=== PATIENT | female | born 1955 ===

== ENCOUNTER 2021-03-31 16:14 | Outpatient (REF) | payer MEDICAID, SELFPAY ==
--- NOTE | ~2021-03-31 | MM_ITS ---
EXAMINATION: MM SCREENING DIGITAL BREAST TOMOSYNTHESIS, BILATERAL CLINICAL INFORMATION: Screening. Asymptomatic. The lifetime risk of breast cancer based on the Tyrer-Cuzick Model is 4%. COMPARISON: Mammography: 12/28/2016 (new baseline) TECHNIQUE: Digital breast tomosynthesis is performed in both the craniocaudal and mediolateral oblique views along with computer-aided detection (CAD). Synthesized 2D images are generated from the tomosynthesis. FINDINGS: There are scattered areas of fibroglandular density (ACR BI-RADS breast composition Category b). There are no significant masses, abnormal calcifications, or other abnormalities. Parenchymal pattern is similar to the prior exam. No architectural abnormality. Skin contours are smooth. MM/MM tomosynthesis screening BI IMPRESSION: No mammographic evidence of malignancy. ASSESSMENT: BI-RADS 1: Negative RECOMMENDATION: Routine annual mammography screening. This patient's information was entered into a reminder system with a target due date for their next mammogram.
== END 2021-03-31 16:15 | disposition home or self-care (01) ==
LOC: HO.MAMMO 16:14
PROVIDERS: Visit Provider Registered Nurse Community Health
DX: Z12.31 Encounter for screening mammogram for malignant neoplasm of breast (principal)
CPT/HCPCS: 77063; 77067

== ENCOUNTER 2021-05-04 14:51 | Outpatient (REF) | payer MEDICAID, SELFPAY ==
[2021-05-04 16:37] LABS: Hematocrit 40.2 % (37.0-47.0); Hemoglobin 12.6 g/dl (12.0-16.0); Mean Corpuscular HGB Conc 31.3 g/dl (31.0-35.0); Mean Corpuscular Hemoglobin 26.5 pg (27.0-33.0); Mean Corpuscular Volume 84.6 fL (80.0-98.0); Platelet Count 269 X10*3/uL (160-400); Red Blood Count 4.75 X10*6/uL (4.20-5.50); Red Cell Distribution Width 12.4 % (11.0-16.0); White Blood Count 10.4 X10*3/uL (4.8-10.8)
[2021-05-04 16:52] LABS: Alanine Aminotransferase 23 U/L (0-31); Albumin Level 4.2 g/dL (3.5-5.0); Alkaline Phosphatase 124 U/L (39-117); Anion Gap 12 (12-20); Aspartate Amino Transferase 23 U/L (5-31); Bilirubin Total 0.2 mg/dL (0.0-1.0); Blood Urea Nitrogen 15 mg/dL (9-16); Calcium 9.5 mg/dL (8.4-10.2); Carbon Dioxide 25 mmol/L (22-29); Chloride 107 mmol/L (96-108); Estimated Glomerular Filt Rate > 60; Glucose Random 91 mg/dL (60-115); Potassium 4.2 mmol/L (3.3-5.1); Sodium 140 mmol/L (135-145); Total Protein 7.8 g/dL (6.5-8.0)
[2021-05-04 17:13] LABS: TSH reflex Free T4 0.45 uIU/mL (0.32-4.0)
== END 2021-05-04 14:52 | disposition home or self-care (01) ==
LOC: HO.LAB 14:51
PROVIDERS: PCP Emergency Medicine; Referring Provider Emergency Medicine; Visit Provider Nurse Practitioner Family
DX: K59.04 Chronic idiopathic constipation (principal); R14.0 Abdominal distension (gaseous)
CPT/HCPCS: 36415; 80053; 84443; 85027; 99202

== ENCOUNTER → 2021-06-22 14:56 | Outpatient (BNVA) | payer MEDICAID, SELFPAY | PROVIDERS: PCP Emergency Medicine; Visit Provider Nurse Practitioner Family | DX: K59.04 Chronic idiopathic constipation (principal); R14.0 Abdominal distension (gaseous) | CPT/HCPCS: 99212 ==

== ENCOUNTER 2021-12-15 13:53 | Outpatient (REF) | payer MEDICAID, SELFPAY ==
--- NOTE | ~2021-12-15 | MM_ITS ---
EXAMINATION: BONE DENSITOMETRY CLINICAL INDICATION: Asymptomatic menopausal state. COMPARISON: None (current study represents initial baseline exam). TECHNIQUE: Using a [employer] DXA System (software version: 13.1) manufactured by [employer], dual-energy x-ray absorptiometry was performed of the lumbar spine and left hip. The images are of good technical quality. Summary results are attached. FINDINGS: AP SPINE L1-L4: BMD 0.854 g/cm2, Z-score -1.2, T-score -2.7, osteoporosis. LEFT FEMUR, NECK: BMD 0.777 g/cm2, Z-score -0.4, T-score -1.9, osteopenia. LEFT FEMUR, TOTAL: BMD 0.886 g/cm2, Z-score 0.2, T-score -1.0, normal. IDENTIFIED RISK FACTORS: Menopause, osteoporosis. HISTORY OF FRACTURE: None listed. MEDICATIONS: None listed. MM/XR DEXA axial skeleton IMPRESSION: 1. DIAGNOSIS: Osteoporosis based on the lowest T-score value of -2.7 in the lumbar spine applying World Health Organization criteria. 2. 10-YEAR FRACTURE RISK PREDICTION, FRAX: According to the guidelines, FRAX calculation should only be performed on patients in the osteopenia bone density category. Therefore, FRAX was not performed on this patient. 3. Treatment Recommendations: NOF guidelines recommend consideration for treatment in postmenopausal women and men age 50 and older presenting with the following: -A hip or vertebral (clinical or morphometric) fracture. -T-score less than or equal to -2.5 at the femoral neck or spine after appropriate evaluation to exclude secondary causes. -Low bone mass at the hip or spine and a 10-year fracture probability by FRAX of greater than or equal to 3% for hip fracture or greater than or equal to 20% for major osteoporotic fracture based on the [place] adapted WHO algorithm. 4. Other Recommendations: All treatment decisions require clinical judgment and consideration of individual patient factors, including patient preferences, comorbidities, previous drug use, risk factors not captured in the FRAX model (e.g. frailty, falls, vitamin D deficiency, increased bone turnover, interval significant decline in bone density) and possible under or overestimation of fracture risk by FRAX. Additional medical evaluation for secondary cause of low bone mineral density may be appropriate. FUTURE SCAN RECOMMENDATION: People with diagnosed cases of osteoporosis or at high risk for fracture should have regular bone mineral density tests. For patients eligible for Medicare, routine testing is allowed once every 2 years. The testing frequency can be increased to one year for patients who have rapidly progressing disease, those who are receiving or discontinuing medical therapy to restore bone mass, or have additional risk factors.
== END 2021-12-15 13:54 | disposition home or self-care (01) ==
LOC: HO.MAMMO 13:53
PROVIDERS: PCP Emergency Medicine; Visit Provider Emergency Medicine
DX: Z13.820 Encounter for screening for osteoporosis (principal); Z78.0 Asymptomatic menopausal state
CPT/HCPCS: 77080

== ENCOUNTER 2022-09-30 13:56 | Outpatient (REF) | payer MEDICAID, SELFPAY ==
[2022-09-30 15:38] LABS: Estimated Average Glucose 94 mg/dL; Hemoglobin A1c % 4.9 %
[2022-09-30 16:08] LABS: Alanine Aminotransferase 27 U/L (0-31); Albumin Level 4.2 g/dL (3.5-5.0); Alkaline Phosphatase 126 U/L (39-117); Aspartate Amino Transferase 21 U/L (5-31); Bilirubin Direct 0.1 mg/dL (0.0-0.5); Bilirubin Total 0.5 mg/dL (0.0-1.0); C Reactive Protein 0.43 mg/dL (< or = 0.50); Lipase 31 U/L (8-78); Magnesium 1.9 mg/dL (1.6-2.6); Total Protein 7.1 g/dL (6.5-8.0)
[2022-09-30 16:19] LABS: Amylase 81 U/L (28-100)
[2022-09-30 16:40] LABS: Folate 15.4 ng/mL (> or = 4.0); TSH reflex Free T4 0.35 uIU/mL (0.32-4.0); Vitamin B12 570 pg/mL (200-900)
[2022-10-03 04:18] LABS: HBS Num1 224.54 mIU/mL (0-7.99); HBc Num1 0.77 S/CO (0.00-0.79); HBsAGNum1 0.33 S/CO (0.00-0.99); Hepatitis A Antibody IgM 0.38 Index (0-0.79); Hepatitis B Core Antibody Nonreactive (Nonreactive); Hepatitis B Surface Antigen Negative (Negative); ~HepC Num1 0.15 S/CO (0.00-0.79); ~Hepatitis A Antibody IgM Nonreactive (Nonreactive); ~Hepatitis B Surface Antibody REACTIVE (Nonreactive); ~Hepatitis C Antibody Nonreactive (Nonreactive)
[2022-10-06 16:48] LABS: Vitamin D 25-OH, D2 <4 ng/mL; Vitamin D 25-OH, D3 28 ng/mL; Vitamin D 25-OH, Total 28 ng/mL (30-100)
== END 2022-09-30 13:57 | disposition home or self-care (01) ==
LOC: HO.LAB 13:56
PROVIDERS: Visit Provider Nurse Practitioner Family
DX: K58.0 Irritable bowel syndrome with diarrhea (principal); K58.1 Irritable bowel syndrome with constipation; K59.01 Slow transit constipation; K59.04 Chronic idiopathic constipation; E55.9 Vitamin D deficiency, unspecified; R79.89 Other specified abnormal findings of blood chemistry; E11.9 Type 2 diabetes mellitus without complications; K13.79 Other lesions of oral mucosa; R13.14 Dysphagia, pharyngoesophageal phase; K21.9 Gastro-esophageal reflux disease without esophagitis; R10.9 Unspecified abdominal pain; Z79.899 Other long term (current) drug therapy
CPT/HCPCS: 36415; 80076; 82150; 82306; 82607; 82746; 83036; 83690; 83735; 84443; 86140; 86704; 86706; 86709; 86803; 87340; 99212

== ENCOUNTER 2022-10-04 12:58 | Day surgery (SDC) | payer MEDICAID, SELFPAY ==
--- NOTE | 2022-10-03 11:45 | HO.ANESPROP2 ---
Documented by User: Francine Llamas NP 10/03/22 11:45 HPI - Anesthesia Eval Consult details Narrative: 67yo F for Upper Endoscopy and Colonoscopy [facility] Past Medical History Medical History Acquired hypothyroidism Goiter Hypertension Family History Family History Mother Diabetes Surgical History Surgical History (Updated 10/04/22 @ 13:24 by Odalis Camarillo RN) Hx of right knee surgery Social History Social History Alcohol intake: current Alcohol intake frequency: holidays/special occasions only Patient Tobacco Use Status: Never used Tobacco Meds Allergies Allergy/AdvReac Type Severity Reaction Status Date / Time No Known Allergies Allergy Verified 10/04/22 13:24 [No Known Allergies*] Home Medications Medication Instructions Recorded Confirmed Last Taken Type amlodipine 5 mg tablet 5 mg PO DAILY 05/04/21 05/04/21 Unknown History levothyroxine 50 mcg capsule 50 mcg PO DAILY 05/04/21 05/04/21 10/04/22 06:00 History cetirizine 10 mg tablet 10 mg PO DAILY 09/30/22 Unknown History hydrocortisone 2.5 % topical cream appl topical BID 09/30/22 Unknown History Exam Exam Date and Time: October 03, 2022 114 Assessment and Plan Assessment Anesthesia Assessment: Chart Reviewed Documented by User: Marcell Rivera MD 10/04/22 17:46 HPI - Anesthesia Eval Consult details Narrative: 67yo F for Upper Endoscopy and Colonoscopy left upper extremity skin leisions , as per patient more leisions on the body , patient stated that she has sought medical opinion for these leisons and workup is being done but no definitive diagnosis yet . Discussed with Dr Mclaughlin . [facility] Past Medical History Medical History Acquired hypothyroidism Goiter Hypertension Functional capacity: independent ambulation Family History Family History Mother Diabetes Family history of problems with anesthesia: No Surgical History Surgical History (Updated 10/04/22 @ 13:24 by Odalis Camarillo RN) Hx of right knee surgery History of Problems with Anesthesia: No Social History Social History Alcohol intake: current Alcohol intake frequency: holidays/special occasions only Patient Tobacco Use Status: Never used Tobacco Meds Allergies Allergy/AdvReac Type Severity Reaction Status Date / Time No Known Allergies Allergy Verified 10/04/22 13:24 [No Known Allergies*] Home Medications Medication Instructions Recorded Confirmed Last Taken Type amlodipine 5 mg tablet 5 mg PO DAILY 05/04/21 05/04/21 Unknown History levothyroxine 50 mcg capsule 50 mcg PO DAILY 05/04/21 05/04/21 10/04/22 06:00 History cetirizine 10 mg tablet 10 mg PO DAILY 09/30/22 Unknown History hydrocortisone 2.5 % topical cream appl topical BID 09/30/22 Unknown History Exam Airway Mallampati Class: III TM Dist: >3cm Neck ROM: Full Loose/Missing/Broken Teeth: Yes (implants, upper slightly chipped as per patient ) Assessment and Plan Assessment Anesthesia Assessment: Anesthesia Plan Discussed Final Anesthetic Review Family History of Problems with Anesthesia: No History of Problems with Anesthesia: No NPO: Yes ASA Class: II Final Preanesthetic Review: Meds/Allgs Chart Reviewed, Consent Obtained/Reviewed and Anes Risks/Benef Reviewed Patient Risk: Intermediate Procedure Risk: Intermediate Anesthetic Plan Anesthetic Plan: MAC: and Agree w/ Assess. and Plan Disposition: Standard PACU
[2022-10-04 13:27] VITALS: BMI 24.5
[2022-10-04 13:43] VITALS: BP 137/74; PULSE 75; RESP 15; TEMP 36.4; O2SAT 99
[2022-10-04] MEDS: Lactated Ringers 1,000 ML 100 ML IVCONT (13:47)
--- NOTE | 2022-10-04 16:28 | MHC.SHP ---
Pre-Procedural Eval Section A Date of Service: 10/04/22 Section B Chief Complaint: epigastric pain, screening colo Relevant Family History (Specify if Yes): No Relevant Social History: None Present Medications: see Short Stay Collaborative assessment Medical History: Significant History (Acquired hypothyroidism Goiter Hypertension) History of Previous Operations: Relevant previous surgery/procedure and date(s) (knee surgery) Allergies: Allergies Allergy/AdvReac Type Severity Reaction Status Date / Time No Known Allergies Allergy Verified 10/04/22 13:24 [No Known Allergies*] Review of Systems Sugical H&P ROS: Negative: Constitution, Cardiovascular, Respiratory, Neurological, Psychiatric, Hem-Onc, Allergic/Immunologic, Gastrointestinal, Genitourinary, Musculoskeletal, Integumentary, Endocrine and Eyes/Ears/Nose/Throat Exam Surgical H&P Exam: Normal: HEENT, Normal: Heart, Normal: Lungs, Normal: Extremities, Normal: Abdomen, Normal: Skin and Normal: Neurological Plan Diagnosis/Plan: Unchanged I have reviewed the history and physical and performed a pertinent physical examination on my patient. No changes have occurred unless specified. EGD also being done due to epigastric pain Time Spent With Patient Time: Total time managing care of this patient today ____ minutes.
--- NOTE | 2022-10-04 16:40 | P.OP_ITS ---
Operative Note Operative Note Date of Service: 10/04/22 Narrative: Operative Information Procedure Description: EGD, Colonoscopy Indication: epigastric pain and screening Anesthesia: MAC FLEXIBLE TRANSORAL UPPER GASTROINTESTINAL ENDOSCOPY AND COLONOSCOPY PROCEDURE NOTE UPPER ENDOSCOPY Consent: Indications for the procedure and potential complications of bleeding, perforation, reaction to medications and missed diagnosis were discussed with the patient and informed consent was obtained. Instrument: Olympus GIF H 190 J mid size upper endoscope Monitoring: Vital signs and clinical assessment, continuous EKG monitoring, Pulse oximetry, Carbon Dioxide monitoring and blood pressure monitoring were done throughout the procedure. Procedure: The patient was placed in the left lateral decubitis position and pre-procedure medications were administered and a bite block was placed. The endoscope was inserted into the mouth and advanced under direct vision to the third part of duodenum. A careful inspection was made as the upper endoscope was withdrawn including a retroflexed examination of the proximal stomach; Findings and interventions are described below. Findings: Larynx:normal Esophagus: GE junction at 40 cm, diaphragm hiatus at 40 cm, suppurative esophagitis with inflammed lining and sloughed off mucosa, random bx taken Stomach: Normal mucosa. Biopsies were obtained. Grade 2 flap valve on retroflexed examination of the cardia. Bx taken Duodenum: Normal bulb and descending duodenum, bx taken Intervention: Biopsies as noted above COLONOSCOPY Instrument: Olympus variable stiffness pediatric scope 190L Colonoscopy Monitoring: Vital signs and clinical assessment, continuous EKG monitoring, Pulse oximetry, Carbon Dioxide monitoring and blood pressure monitoring were done throughout the procedure. Colon withdrawal time was 8 minutes. Procedure: The patient was placed in the left lateral decubitis position and pre-procedure medications were administered. After a digital rectal examination of the ano-rectum, the video colonoscope was inserted into the rectum and advanced through the colon to the cecum/TI. The colonoscope was slowly withdrawn in a retrograde panoramic fashion and the colon mucosa was carefully examined including a retroflexed view of the rectum. Findings and interventions are described below. Procedure Difficulty: moderate, pressure applied to get to cecum Findings: Terminal Ileum-normal Cecum:normal Ascending Colon: several wide mouthed tics noted Transverse Colon -normal Descending Colon: moderate diverticulosis Sigmoid Colon: severe diverticulosis Rectum: Retroflexion with small internal hemorrhoids, grade I Anorectum - normal Colon preparation: [place] Bowel Preparation Scale Right colon; 2 Transverse colon: 3 Left colon; 3 (0 = Unprepared colon segment with mucosa not seen due to solid stool that cannot be cleared. 1 = Portion of mucosa of the colon segment seen, but other areas of the colon segment not well seen due to staining, residual stool and/or opaque liquid. 2 = Minor amount of residual staining, small fragments of stool and/or opaque liquid, but mucosa of colon segment seen well. 3 = Entire mucosa of colon segment seen well with no residual staining, small fragments of stool or opaque liquid) Impression and Post Procedure Diagnosis: Endoscopy Findings: esophagitis Colonoscopy Findings: internal hemorrhoids diverticulosis Plan: Await Pathology results Repeat Colonoscopy in 10 years or earlier if clinically indicated High fiber diet leaflet avoid straining at stool, epsom salts and sitz bath, anusol supps or cream check compliance with PPI, check if taking doxy or bisphosphonate Above findings were reviewed with the patient and relevant handouts were provided if indicated.
[2022-10-04 17:25] VITALS: BP 104/51; PULSE 84; RESP 15; TEMP 36.3; O2SAT 99
[2022-10-04 17:40] VITALS: BP 126/72; PULSE 77; RESP 18; TEMP 36.3; O2SAT 99
== END 2022-10-04 17:59 | disposition home or self-care (01) ==
PROVIDERS: Visit Provider Internal Medicine Gastroenterology
PROC: (CPT 45378; principal; 2022-10-04 14:30)
DX: Z12.11 Encounter for screening for malignant neoplasm of colon (principal); K57.30 Diverticulosis of large intestine without perforation or abscess without bleeding; K64.0 First degree hemorrhoids; R10.13 Epigastric pain; K22.10 Ulcer of esophagus without bleeding; K29.50 Unspecified chronic gastritis without bleeding; B96.81 Helicobacter pylori [H. pylori] as the cause of diseases classified elsewhere; K13.79 Other lesions of oral mucosa; K44.9 Diaphragmatic hernia without obstruction or gangrene; I10 Essential (primary) hypertension; E03.9 Hypothyroidism, unspecified; E04.9 Nontoxic goiter, unspecified; Z79.899 Other long term (current) drug therapy
CPT/HCPCS: 45378; 43239; 88305; 88312; 88341; 88342; J3010

== ENCOUNTER 2022-10-13 10:59 | Outpatient (REF) | payer MEDICAID, SELFPAY ==
[2022-10-20 21:09] LABS: Pancreatic Elastase-1 >500 mcg/g
== END 2022-10-13 11:00 | disposition home or self-care (01) ==
LOC: HO.LNP 10:59
PROVIDERS: Visit Provider Nurse Practitioner Family
DX: K21.9 Gastro-esophageal reflux disease without esophagitis (principal); K21.00 Gastro-esophageal reflux disease with esophagitis, without bleeding; K57.90 Diverticulosis of intestine, part unspecified, without perforation or abscess without bleeding; K59.01 Slow transit constipation; R13.10 Dysphagia, unspecified; A04.8 Other specified bacterial intestinal infections; R10.9 Unspecified abdominal pain; Z79.899 Other long term (current) drug therapy
CPT/HCPCS: 82656; 87338; 99212

== ENCOUNTER → 2022-11-23 11:50 | Outpatient (BNVA) | payer MEDICAID, SELFPAY | PROVIDERS: Visit Provider Nurse Practitioner Family | DX: R49.0 Dysphonia (principal); R13.19 Other dysphagia; K21.00 Gastro-esophageal reflux disease with esophagitis, without bleeding; K59.04 Chronic idiopathic constipation | CPT/HCPCS: 99212 ==

== ENCOUNTER 2022-12-20 10:51 | Outpatient (REF) | payer MEDICAID, SELFPAY ==
[2022-12-20 14:22] LABS: MANUAL DIFF FLAG NO
[2022-12-20 14:25] LABS: Basophils Absolute Auto 0.1 X10*3/uL (0.0-0.2); Basophils Percent Auto 0.5 % (0-2); Eosinophils Absolute Auto 0.2 X10*3/uL (0.0-0.4); Hematocrit 41.7 % (37.0-47.0); Hemoglobin 12.9 g/dl (12.0-16.0); Imm Gran Abs Auto 0.14 X10*3/uL (0.00-0.03); Imm Gran Pct Auto 0.9 % (0.0-0.4); Lymphocytes Absolute Auto 2.3 X10*3/uL (1.2-4.9); Lymphocytes Percent Auto 15.1 % (20-40); Mean Corpuscular HGB Conc 30.9 g/dl (31.0-35.0); Mean Corpuscular Hemoglobin 27.5 pg (27.0-33.0); Mean Corpuscular Volume 88.9 fL (80.0-98.0); Mean Platelet Volume 10.5 fL (9.4-12.3); Monocytes Absolute Auto 0.5 X10*3/uL (0.1-1.2); Monocytes Percent Auto 3.1 % (2-11); Neutrophils Absolute Auto 12.2 x10*3/uL (2.0-8.3); Neutrophils Percent Auto 79.4 % (45-73); Platelet Count 251 X10*3/uL (160-400); Red Blood Count 4.69 X10*6/uL (4.20-5.50); Red Cell Distribution Width 14.5 % (11.0-16.0); White Blood Count 15.4 X10*3/uL (4.8-10.8)
[2022-12-20 15:04] LABS: Anion Gap 14 (12-20); Blood Urea Nitrogen 11 mg/dL (9-16); Calcium 10.1 mg/dL (8.4-10.2); Carbon Dioxide 25 mmol/L (22-29); Chloride 106 mmol/L (96-108); Estimated Glomerular Filt Rate > 60; Glucose Fasting 68 mg/dL (60-99); Potassium 3.9 mmol/L (3.3-5.1); Sodium 141 mmol/L (135-145)
== END 2022-12-20 10:52 | disposition home or self-care (01) ==
LOC: HO.CHCLDS 10:51
PROVIDERS: Visit Provider Internal Medicine
DX: L10.0 Pemphigus vulgaris (principal)
CPT/HCPCS: 36415; 80048; 85025

== ENCOUNTER 2023-03-01 11:50 | Outpatient (AMB) | payer MEDICAID, SELFPAY ==
[2023-03-01 11:54] VITALS: BP 120/80; PULSE 81; O2SAT 98
--- NOTE | 2023-03-01 11:54 | MHC.OFFVIS ---
Intake Vital Signs 03/01/23 11:54 Height 5 ft 1 in BP 120/80 Blood Pressure Location Lt brachial Position Sitting Pulse 81 Pulse Source Pulse Oximeter Pulse Oximetry (%) 98 Intake Visit Reasons: 3 mnth follow up Intake Note: Patient in the office for a 3 month follow up Allergies No Known Allergies [No Known Allergies*] Allergy (Verified 03/01/23 11:56) HPI 3 mnth follow up HPI Details LAST VISIT Hoarseness of voice Patient reports hoarseness and would like to be referred to all fire and safety helper. Denies any postnasal drip. Had a history of dysphagia. Will send her for x-ray to rule out any abnormalities. Dysphagia Patient reports that her symptoms of difficulty when swallowing have improved. Continue taking omeprazole and sucralfate as ordered. GERD (gastroesophageal reflux disease) Continue current treatment as mentioned above. Discussed with patient avoiding dietary triggers in late night snacking. Staying upright for minimum 3 hours after meals discussed with patient. Constipation Continue Linzess. Patient was encouraged to increase fluid intake and activity better bowel motility. I will see patient in 3 months, sooner on as needed basis. Patient is agreeable to this plan and verbalizes understanding of instructions. She was given the opportunity to ask questions and all questions answered. ? TODAY'S VISIT Patient is here today for follow-up. Patient reports that she is doing better. No longer has dysphagia or dyspepsia. Patient is taking omeprazole in the morning half an hour before breakfast and she take sucralfate at bedtime. Occasionally patient will skip sucralfate at bedtime and sees no difference. Patient denies epigastric discomfort. Reports to be feeling much better. Patient reports that she is moving her bowels better. Takes 2 capsules of Linzess of total 290 mcg. Patient reports that she is moving her bowels better. Patient denies abdominal pain or discomfort. Patient denies postprandial abdominal pain or bloating. Patient is accompanied by her daughter who is translating for patient per her request. 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 PFSH Medical History Acquired hypothyroidism Goiter Hypertension Surgical History History of esophagogastroduodenoscopy (EGD) Hx of colonoscopy Hx of right knee surgery Family History Mother Diabetes Social History Alcohol intake: current Alcohol intake frequency: holidays/special occasions only Patient Tobacco Use Status: Never used Tobacco Review of Systems Const Denies weight gain and Denies weight loss ENT Reports no additional complaints, Denies dysphagia and Denies odynophagia Card Reports no additional complaints Resp Reports no additional complaints GI Denies abdominal pain, Denies belching, Denies melena, Denies bloating, Denies change in bowel habits, Denies dysphagia, Denies excessive flatus, Denies dyspepsia, Denies heartburn, Denies diarrhea, Denies loose stools, Denies nausea, Denies odynophagia and Denies vomiting Reports no additional complaints Musc Reports no additional complaints Neuro Reports no additional complaints Psych Reports no additional complaints Endo Reports no additional complaints Physical Exam Vital Signs: Last Vital Signs Pulse 81 03/01/23 11:54 BP 120/80 03/01/23 11:54 Pulse Ox 98 03/01/23 11:54 Const General: healthy appearing, no acute distress and well developed Nutritional Appearance: well nourished Orientation/consciousness: patient oriented x3 HEENT Head: Yes normal to inspection, Yes normocephalic and Yes atraumatic Face and sinus: Yes normal facial exam Mouth: Normal oral and palatal mucosa present Throat: Yes posterior oropharynx normal, Yes tonsils normal and Yes uvula midline Eyes General: appearance normal, both eyes and all related structures Neck Neck: Yes normal visual inspection, Yes full ROM and Yes trachea midline Thyroid: Thyroid normal Resp Effort & Inspection: normal respiratory effort, able to speak in complete sentences, no tracheal deviation and symmetric chest movement Auscultation: clear to auscultation bilaterally Cardio Rate: regular rate Heart sounds: S1 normal heart sound present and S2 normal heart sound present GI Inspection: Yes normal to inspection and No distended Palpation (GI): Soft to palpation, not firm, nontender and No hepatosplenomegaly present Auscultation: normal bowel sounds General: Yes no CVA tenderness Back/Spine/Pelvis Back: no CVA tenderness Skin General skin exam: elasticity normal, turgor normal and dry skin Neuro General: patient oriented x3 Psych Appearance: grossly normal Mental Status: mental status grossly normal Thought content: Normal thought content present Assessment & Plan Assessment & Plan (1) GERD (gastroesophageal reflux disease): Code(s): K21.9 - Gastro-esophageal reflux disease without esophagitis Qualifiers: Esophagitis presence: without esophagitis Qualified Code(s): K21.9 - Gastro-esophageal reflux disease without esophagitis Plan: Continue omeprazole in the morning half an hour before breakfast. Patient can take sucralfate at bedtime on as needed basis. Patient was encouraged to avoid dietary triggers and late night snacking. Staying upright for minimal 3 hours after meals discussed with patient. Patient has a history of H pylori was treated with antibiotics. Feeling better now. We will retest for eradication (2) Constipation: Code(s): K59.00 - Constipation, unspecified Qualifiers: Constipation type: chronic idiopathic constipation Qualified Code(s): K59.04 - Chronic idiopathic constipation Plan: Patient can take Linzess 290 mcg daily. Patient was also encouraged to increase fluid intake and activity to promote better bowel motility. I will see patient in 6 months, sooner on as needed basis. Patient is agreeable to this plan and verbalizes understanding of instructions. She was given the opportunity to ask questions and all questions answered. Thank you for allowing me to participate in her care Orders: Orders H pylori Ag Stool Today K21.9 - Gastro-esophageal reflux disease without esophagitis Medications: New linaclotide (Linzess) 290 mcg PO QAM 30 caps 4RF K59.00 - Constipation, unspecified Changed From sucralfate 1 g PO BID 180 tabs 1RF K21.9 - Gastro-esophageal reflux disease without esophagitis To sucralfate 1 g PO BEDTIME PRN 90 tabs 1RF acid reflux K21.9 - Gastro-esophageal reflux disease without esophagitis Refilled linaclotide (Linzess) 145 mcg PO DAILY 30 caps 2RF Discontinued sennosides (Natural Senna Laxative) Discontinued Reason: Patient no longer taking 17.2 mg (2 x 8.6 mg) PO BEDTIME 60 tabs 1RF constipation K59.00 - Constipation, unspecified bismuth subsalicylate Discontinued Reason: Patient no longer taking 2 tabs PO QID 14 days 112 tabs 0RF A04.8 - Other specified bacterial intestinal infections tetracycline Discontinued Reason: Patient Completed Course 1,000 mg (2 x 500 mg) PO Q12H 56 caps 0RF A04.8 - Other specified bacterial intestinal infections ondansetron Discontinued Reason: Patient Completed Course 4 mg PO Q8H PRN 20 tabs 0RF nausea and vomiting R11.0 - Nausea Coding Level of Care Code Est Pt Level 3 (30171) Diagnoses Gastroesophageal reflux disease without esophagitis K21.9 Esophagitis presence: without esophagitis Chronic idiopathic constipation K59.04 Constipation type: chronic idiopathic constipation Time Spent (min) 30 Comment 20 minutes spent with patient and additional 10 minutes spent reviewing her records
== END 2023-03-01 12:22 | disposition home or self-care (01) ==
PROVIDERS: Visit Provider Nurse Practitioner Family
DX: K21.9 Gastro-esophageal reflux disease without esophagitis (principal); K59.04 Chronic idiopathic constipation
CPT/HCPCS: 99213

== ENCOUNTER → 2023-03-01 11:50 | Outpatient (BNVA) | payer MEDICAID, SELFPAY | PROVIDERS: Visit Provider Nurse Practitioner Family | DX: K21.9 Gastro-esophageal reflux disease without esophagitis (principal); K59.04 Chronic idiopathic constipation | CPT/HCPCS: 99212 ==

== ENCOUNTER 2023-03-01 13:49 | Outpatient (REF) | payer MEDICAID, SELFPAY | END 2023-03-01 13:50 | disposition home or self-care (01) | LOC: HO.LNP 13:49 | PROVIDERS: Visit Provider Nurse Practitioner Family | DX: K21.9 Gastro-esophageal reflux disease without esophagitis (principal) | CPT/HCPCS: 87338 ==

== ENCOUNTER 2023-05-12 13:45 | Outpatient (REF) | payer MEDICAID, SELFPAY ==
[2023-05-12 16:51] LABS: Thyroid Stimulating Hormone 0.17 uIU/mL (0.32-4.0)
== END 2023-05-12 13:46 | disposition home or self-care (01) ==
LOC: HO.HHCL 13:45
PROVIDERS: Visit Provider Registered Nurse
DX: E03.8 Other specified hypothyroidism (principal); E06.3 Autoimmune thyroiditis
CPT/HCPCS: 36415; 84443

== ENCOUNTER 2023-07-04 08:37 | Outpatient (REF) | payer MEDICAID, SELFPAY ==
[2023-07-04 11:56] LABS: Basophils Absolute Auto 0.1 X10*3/uL (0.0-0.2); Basophils Percent Auto 0.5 % (0-2); Eosinophils Absolute Auto 0.3 X10*3/uL (0.0-0.4); Eosinophils Percent Auto 2.3 % (0-4); Hematocrit 41.8 % (37.0-47.0); Hemoglobin 12.7 g/dl (12.0-16.0); Imm Gran Abs Auto 0.04 X10*3/uL (0.00-0.03); Imm Gran Pct Auto 0.4 % (0.0-0.4); MANUAL DIFF FLAG SCAN; Mean Corpuscular HGB Conc 30.4 g/dl (31.0-35.0); Mean Corpuscular Volume 85.5 fL (80.0-98.0); Mean Platelet Volume 10.3 fL (9.4-12.3); Monocytes Percent Auto 8.8 % (2-11); Neutrophils Absolute Auto 4.8 x10*3/uL (2.0-8.3); Platelet Count 288 X10*3/uL (160-400); Red Blood Count 4.89 X10*6/uL (4.20-5.50); Red Cell Distribution Width 13.1 % (11.0-16.0); SCAN SMEAR FLAG 1; White Blood Count 11.2 X10*3/uL (4.8-10.8)
[2023-07-04 12:24] LABS: Anion Gap 13 (12-20); Blood Urea Nitrogen 9 mg/dL (9-16); Carbon Dioxide 27 mmol/L (22-29); Chloride 109 mmol/L (96-108); Estimated Glomerular Filt Rate > 60; Glucose Random 76 mg/dL (60-115); Potassium 3.7 mmol/L (3.3-5.1); Sodium 145 mmol/L (135-145)
[2023-07-04 12:27] LABS: Cholesterol 178 mg/dL (<200); HDL Cholesterol 65 mg/dL (>40); LDL Cholesterol Calculated 101 mg/dL (<100); Triglycerides 60 mg/dL (<150)
[2023-07-04 12:30] LABS: SLIDE REVIEW VERIFIED
== END 2023-07-04 08:38 | disposition home or self-care (01) ==
LOC: HO.HHCL 08:37
PROVIDERS: Internal Medicine; Visit Provider Registered Nurse
DX: E03.9 Hypothyroidism, unspecified (principal); L10.0 Pemphigus vulgaris
CPT/HCPCS: 36415; 80048; 80061; 84443; 85025

== ENCOUNTER 2023-12-19 08:05 | Outpatient (REF) | payer MEDICAID, SELFPAY ==
--- NOTE | ~2023-12-19 | MM_ITS ---
EXAMINATION: BONE DENSITOMETRY CLINICAL INDICATION: Long-term, current, use of systemic steroids. COMPARISON: Baseline BD dated 12/15/2021. TECHNIQUE: Using a [employer] DXA System (software version: 13.1) manufactured by [employer], dual-energy x-ray absorptiometry was performed of the lumbar spine and left hip. The images are of good technical quality. Summary results are attached. FINDINGS: LEFT FEMUR, NECK: Current: BMD 0.727 g/cm2, Z-score -0.8, T-score -2.2, osteopenia. Baseline: BMD 0.777 g/cm2. LEFT FEMUR, TOTAL: Current: BMD 0.817 g/cm2, Z-score -0.3, T-score -1.5, osteopenia, 7.8% decrease from baseline (<5% change is not significant). Baseline: BMD 0.886 g/cm2. AP SPINE L1-L4: Current: BMD 0.779 g/cm2, Z-score -1.9, T-score -3.3, osteoporosis, 8.8% decrease from baseline (<5% change is not significant). Baseline: BMD 0.854 g/cm2. IDENTIFIED RISK FACTORS: Menopause, glucocorticoids, secondary osteoporosis (hyperthyroidism). HISTORY OF FRACTURE: None listed. MEDICATIONS: Calcium supplements or multivitamin, vitamin D. MM/XR DEXA axial skeleton IMPRESSION: 1. DIAGNOSIS: Osteoporosis based on the lowest T-score value of -3.3 in the lumbar spine applying World Health Organization criteria. 2. 10-YEAR FRACTURE RISK PREDICTION, FRAX: According to the guidelines, FRAX calculation should only be performed on patients in the osteopenia bone density category. Therefore, FRAX was not performed on this patient. 3. Treatment Recommendations: NOF guidelines recommend consideration for treatment in postmenopausal women and men age 50 and older presenting with the following: -A hip or vertebral (clinical or morphometric) fracture. -T-score less than or equal to -2.5 at the femoral neck or spine after appropriate evaluation to exclude secondary causes. -Low bone mass at the hip or spine and a 10-year fracture probability by FRAX of greater than or equal to 3% for hip fracture or greater than or equal to 20% for major osteoporotic fracture based on the [place] adapted WHO algorithm. 4. Other Recommendations: All treatment decisions require clinical judgment and consideration of individual patient factors, including patient preferences, comorbidities, previous drug use, risk factors not captured in the FRAX model (e.g. frailty, falls, vitamin D deficiency, increased bone turnover, interval significant decline in bone density) and possible under or overestimation of fracture risk by FRAX. Additional medical evaluation for secondary cause of low bone mineral density may be appropriate. FUTURE SCAN RECOMMENDATION: People with diagnosed cases of osteoporosis or at high risk for fracture should have regular bone mineral density tests. For patients eligible for Medicare, routine testing is allowed once every 2 years. The testing frequency can be increased to one year for patients who have rapidly progressing disease, those who are receiving or discontinuing medical therapy to restore bone mass, or have additional risk factors.
== END 2023-12-19 08:06 | disposition home or self-care (01) ==
LOC: HO.MAMMO 08:05
PROVIDERS: PCP Internal Medicine; Visit Provider Internal Medicine
DX: Z13.820 Encounter for screening for osteoporosis (principal); Z79.52 Long term (current) use of systemic steroids; Z78.0 Asymptomatic menopausal state
CPT/HCPCS: 77080

== ENCOUNTER 2024-05-29 08:07 | Outpatient (AMB) | payer MEDICAID, SELFPAY ==
--- NOTE | 2024-05-29 08:10 | A.OFFVIS_ITS ---
Vital Signs 05/29/24 08:14 Height 5 ft 2.56 in Weight 156 lb 1.396 oz BMI 28.0 BP 114/68 Blood Pressure Location Rt brachial Position Sitting Pulse 74 Pulse Source Pulse Oximeter Intake Visit Reasons: Other osteoporosis w/o current path fracture Intake Note: New patient externally referred by PCP for Osteoporosis without current path fracture. Patient is on Alendronate 70 mg weekly and has been on it for approx 4 months. Livestock Auctioneer Required: Yes Livestock Auctioneer Language: Measurement Supervisor Services: Livestock Auctioneer Present Livestock Auctioneer Name: Berny [id number] Information Interpreted: non-clinical & clinical Accompanied by: Daughter Allergies No Known Allergies [No Known Allergies*] Allergy (Verified 05/29/24 08:15) HPI Comments Details: 68 YO Female with hx of Pemphigus vulgaris vulgaris is seen in consultation at the request of PCP for Osteoporosis. First diagnosed in this yr . Received steroids for 12 mos Received treatment in the past with alendronate , from 01/2024 to 05/2024 . Not Tolerated treatment with bone pain . No history of pathologic fracture or ONJ. Has several servings of dietary calcium per day in the form of yogurt. milk . Not Takes Calcium supplement . Not Takes Took PPI, -anticoagulant,- antiepileptic + glucocorticoid medication as above . Does weight bearing exercise 2 days per week in the form of walking . Fracture history: No Height loss: No ARTIFICIAL FLOWER MAKER history: Menarche at age 15- Menopause at age 51 - nl menses Denies history of Kidney stones: Denies family history of Osteoporosis or hip fracture. UTD on dental cleanings and sees dentist every 6 months. No planned upcoming dental work or extractions. DXA dated 12/19/2023:FINDINGS: LEFT FEMUR, NECK: Current: BMD 0.727 g/cm2, Z-score -0.8, T-score -2.2, osteopenia. Baseline: BMD 0.777 g/cm2. LEFT FEMUR, TOTAL: Current: BMD 0.817 g/cm2, Z-score -0.3, T-score -1.5, osteopenia, 7.8% decrease from baseline (<5% change is not significant). Baseline: BMD 0.886 g/cm2. AP SPINE L1-L4: Current: BMD 0.779 g/cm2, Z-score -1.9, T-score -3.3, osteoporosis, 8.8% decrease from baseline (<5% change is not significant). Baseline: BMD 0.854 g/cm2. IDENTIFIED RISK FACTORS: Menopause, glucocorticoids, secondary osteoporosis (hyperthyroidism). HISTORY OF FRACTURE: None listed. MEDICATIONS: Calcium supplements or multivitamin, vitamin D. MM/XR DEXA axial skeleton IMPRESSION: 1. DIAGNOSIS: Osteoporosis based on the lowest T-score value o Labs: [facility] Medical History (Updated 05/29/24 @ 08:15 by Tonny Weber MD) Osteoporosis Acquired hypothyroidism Hypertension Goiter Surgical History History of esophagogastroduodenoscopy (EGD) Hx of colonoscopy Hx of right knee surgery Family History Mother Diabetes Social History Alcohol intake: current Alcohol intake frequency: holidays/special occasions only Patient Tobacco Use Status: Never used Tobacco Physical Exam Vital Signs: Last Vital Signs Pulse 74 05/29/24 08:14 BP 114/68 05/29/24 08:14 BMI result Body Mass Index 28.0 There are no Cushingoid features. Absence of blue sclera. Absence of kyphosis. Thyroid gland is of nl size and weighs 15 gms. There are no thyroid nodules palpated. Lungs CTA. Heart S1 S2 Reg R/R Abdominal exam benign. Muscle strength 5/5 . Examination of spine reveals absence of tenderness on palpation Assessment & Plan Assessment & Plan (1) Osteoporosis: Code(s): M81.0 - Age-related osteoporosis without current pathological fracture Category: Medical Plan: This is a 68-year-old female with a history of osteoporosis. Rule out secondary causes. Vitamin-D level is low normal. She was previously intolerant of alendronate Plan is to have patient take 2000 IU of vitamin D3 along with calcium supplementation to total of 1200 mg. We will check 25 hydroxy vitamin-D, 24 ho ur urine for calcium and creatinine, SPEP, urine immunofixation, phosphorus level in about 8 weeks' time. Assuming secondary workup was negative would strongly consider the use of anabolic agent like Evenity, Forteo or Tymlos initially considering very low bone density and high risk of fracture proceeded by anti resorptive agent Orders: Orders Vitamin D 25-OH Total 2 Months M81.0 - Age-related osteoporosis without current pathological fracture Creatinine, 24 Hr Group 2 Months M81.0 - Age-related osteoporosis without current pathological fracture Protein Electrophoresis, Serum 2 Months M81.0 - Age-related osteoporosis without current pathological fracture Immunofixation, Random Urine 2 Months M81.0 - Age-related osteoporosis without current pathological fracture Phosphorus 2 Months M81.0 - Age-related osteoporosis without current pathological fracture Calcium, 24 Hr Ur 2 Months M81.0 - Age-related osteoporosis without current pathological fracture Coding Level of Care Code New Pt Level 4 (42227) Diagnoses Osteoporosis M81.0
[2024-05-29 08:14] VITALS: BP 114/68; PULSE 74; BMI 28.0
== END 2024-05-29 08:56 | disposition home or self-care (01) ==
PROVIDERS: PCP Internal Medicine; Visit Provider Internal Medicine Endocrinology, Diabetes & Metabolism
DX: M81.0 Age-related osteoporosis without current pathological fracture (principal)
CPT/HCPCS: 99204

== ENCOUNTER → 2024-05-29 08:07 | Outpatient (BNVA) | payer MEDICAID, SELFPAY | PROVIDERS: PCP Internal Medicine; Visit Provider Internal Medicine Endocrinology, Diabetes & Metabolism | DX: M81.0 Age-related osteoporosis without current pathological fracture (principal) | CPT/HCPCS: 99202 ==

== ENCOUNTER 2024-08-13 | Outpatient (REF) | payer MEDICARE, MEDICAID, SELFPAY | END 2024-08-13 00:01 | disposition home or self-care (01) | LOC: HO.LNP | PROVIDERS: Visit Provider Internal Medicine Endocrinology, Diabetes & Metabolism | DX: M81.0 Age-related osteoporosis without current pathological fracture (principal) | CPT/HCPCS: 86335 ==

== ENCOUNTER 2024-08-14 08:51 | Outpatient (REF) | payer MEDICARE, MEDICAID, SELFPAY ==
--- OUTSIDE RECORDS SUMMARY | 2024-08-14 09:38 | XMS_ITS | Clinical Summary ---
Author Organization [facility] it Address [address] [place] [address] Care Team Providers Care Diving Supervisor Name Role Phone Unavailable Primary Care Provider Unavailabl e Social History Tobacco Use Types Packs/Day Years Used Date Smoking Tobacco: Never Assessed Comments Unknown Sex and Gender Information Value Date Recorded Sex Assigned at Not on file Legal Sex Female 10:49 PM EST Gender Identity Not on file Sexual Orientation Not on file Plan of Treatment Health Maintenance Due Date Last Done Comments Breast Cancer Screening 1955 DTaP,Tdap,and Td Vaccines (1 - Tdap) 08/24/1975 Pneumococcal Vaccine: 50+ Ye ars (1 of 1 - PCV) 2006 Zoster Vaccines (1 of 2) 2006 Colorectal Cancer Screening: Colonoscopy 05/15/2022 Depression Screening 05/15/2022 Falls Risk Assessment 05/15/2022 Hepatitis C Screening 05/15/2022 Osteoporosis Screening (Bone Density Screening) 05/15/2022 Social Influencers of Health Screening 05/15/2022 COVID-19 Vaccine ( - 2023-2 5 season) 2024 Influenza Vaccine (#1) 2024 RSV Immunization Patients 60 + Years Old (1 - 1-dose 75+ series) 08/24/2031 HIB Vaccines Aged Out No longer eligi ble based on patient's age to complete this topic HPV Vaccines Aged Out No longer eligi ble based on patient's age to complete this topic Hepatitis A Vaccines Aged Out No long er eligible based on patient's age to complete this topic Hepatitis B Vaccines Aged Out No long er eligible based on patient's age to complete this topic IPV Vaccines Aged Out No longer eligi ble based on patient's age to complete this topic MMR Vaccines Aged Out No longer eligi ble based on patient's age to complete this topic Meningococcal ACWY Vaccine Aged Out N o longer eligible based on patient's age to complete this topic Meningococcal B Vacine Aged Out No lo nger eligible based on patient's age to complete this topic RSV Immunization Patients Un nani 20 months Aged Out No longer eligible b ased on patient's age to complete this topic Varicella Vaccines Aged Out No longer eligible based on patient's age to complete this topic
--- OUTSIDE RECORDS SUMMARY | 2024-08-14 09:38 | XMS_ITS | Encounter Summary ---
Author Organization [employer] Address [address] [place] [address] Care Team Providers Care Pulp Grinder Feeder Name Role Phone Carlotta Szymanski AGENT TICKETING GATE Primary Care Provider [phone] Encounter Details Date Type Department Care Team ([facility] Contact Info) Description 07/29/2022 Telephone [facility] MEDICINE [address] [place], [place] [phone] Carlotta Szymanski FNP [address] [place] [address] Social History Tobacco Use Types Packs/Day Years Used Date Smoking Tobacco: Never Assessed Comments Unknown Sex and Gender Information Value Date Recorded Sex Assigned at Female 04/11/2022 10:31 AM EDT Legal Sex Female 10:31 AM EDT Gender Identity Female 04/11/2022 10:31 AM EDT Sexual Orientation Choose not to disclose 2021 10:31 AM EDT documented as of this encounter Plan of Treatment Upcoming Encounters Date Type Department Care Team (Late st Contact Info) Description 10/15/2024 9:30 AM EDT Office Visit [facility] MED & PEDS [address] [place], [place] [phone] Aurelia Blackmon MD [address] [place], [place] [phone] documented as of this encounter Visit Diagnoses Not on filedocumented in this encounter Care Teams Pulp Grinder Feeder Relationship Specialty Start Date End Date Carlotta Szymanski FNP [address] [place] [address] PCP - General Family Medicine 02/08/22 documented as of this encounter
--- OUTSIDE RECORDS SUMMARY | 2024-08-14 09:38 | XMS_ITS | Encounter Summary ---
Author Organization [facility] Address [address] [facility] [address] [place] [address] Care Team Providers Care Liability Claims Adjuster Name Role Phone [facility] Primary Care Provider [phone] Reason for Visit * Reason Onset Date Comments Medication Question 05/16/2023 Encounter Details Date Type Department Care Team ([facility] st Contact Info) Description 05/16/2023 Telephone [facility] MEDICINE [address] [place] [address] [facility] [address] [place], [place] [phone] Medication Question Social History Tobacco Use Types Packs/Day Years Used Date Smoking Tobacco: Never Passive Smoke Exposure: Never Smokeless Tobacco: Never Alcohol Use Standard Drinks/Week Comments Yes 0 (1 standard drink = 0.6 oz pur e alcohol) Very Rarely Depression Answer Date Recorded Patient Health Questionnaire-9 Score 0 05/12/2023 Patient Health Questionnaire-9 Score 0 05/12/2023 Last PHQ-9: Questionnaire Data Not on file 1 07/13/2022 Housing Stability Answer Date Recorded What is your housing situation today? I have linda meryl 05/12/[address] you li ve. Do you have problems with any of the following? None of the above 05/12/2023 Food Insecurity Answer Date Recorded Within the past 12 months, y ou worried that your food would run out before you got money to buy more: Never True 04/03/2023 Within the past 12 months,th e food you bought just didn't last and you didn't have enough money to get more: Never True Transportation Answer Date Recorded In the past 12 months, has l ack of transportation kept you from medical appts, meetings, work or from getting things needed for daily living? No 04/03/2023 Utilities Answer Date Recorded In the past 12 months, has t he electric, gas, oil or water company threatened to shut off services in your home? No 04/03/2023 Depression Answer Date Recorded Patient Health Questionnaire-2 Score 0 05/12/2023 Comments Unknown Sex and Gender Information Value Date Recorded Sex Assigned at Female 04/11/2022 10:31 AM EDT Legal Sex Female 10:31 AM EDT Gender Identity Female 04/11/2022 10:31 AM EDT Sexual Orientation Choose not to disclose 2021 10:31 AM EDT documented as of this encounter Miscellaneous Notes * Telephone Encounter - Oralia Xie RN - 05/17/2023 11:18 AM EST Returned call to pharmacy regarding message below. Pharmacy informed of PCP orders. No further concerns at this time. * Telephone Encounter - Oralia Xie RN - 05/16/2023 1:06 PM EST Please review and advise if Vistaril rx is 1 or 2 tabs at bedtime. * Telephone Encounter - Luba Avila - 05/16/2023 10:48 AM EST Tc from pharmacy requesting a call back in regards clarifications on dose or the resend of script for hydrOXYzine pamoate (Vistaril) 25 MG capsule with clarifications if is 1 or 2 tablets. documented in this encounter Plan of Treatment Upcoming Encounters Date Type Department Care Team (Late st Contact Info) Description 10/15/2024 9:30 AM EDT Office Visit [facility] MED & PEDS [address] [place] [address] Aurelia Blackmon MD [address] [facility] [place] [address] documented as of this encounter Visit Diagnoses Not on filedocumented in this encounter Additional Health Concerns Assessment Noted Time PHQ-9 Depression Total Score: 0 05/12/20 23 1:22 PM EST documented as of this encounter Care Teams Liability Claims Adjuster Relationship Specialty Start Date End Date Carlotta Szymanski FNP [address] [place] [address] PCP - General Family Medicine 02/08/22 documented as of this encounter
--- OUTSIDE RECORDS SUMMARY | 2024-08-14 09:38 | XMS_ITS | Referral Summary ---
Author Organization [facility] Address [address] [place] [address] Care Team Providers Care Machine Tank Operator Name Role Phone Lorri Aliciaedith Bell Primary Care Provider [phone] Encounters Date Type Department Care Team Description 06/06/2024 9:00 AM EST Infusion [facility] [address] [place] [address] Meredith Samayoa MD Waugh, Kelsey, RN Pemphigus vulgaris (Primary Dx) 05/23/2024 10:00 AM EST Infusion [facility] Infusion [address] [address] Meredith Samayoa MD Sandholm, Michele L, RN Pemphigus vulgaris (Primary Dx) from Last 3 Months Allergies No known active allergies Medications magic mouthwash (lidocaine-maalo x-diphenhydrAMIN E) 1:1:1 4 Active amLODIPine (NORVASC) 10 mg tablet SMARTSI Tablet(s) By Mouth Daily Active betamethasone, augmented, (DIPROLENE) 0.05 % gel SMARTSIG:Topica l Twice Daily Active halobetasol (ULTRAVATE) 0.05 % ointment SMARTSIG:Topica l Twice Daily 3 Active hydrOXYzine (VISTARIL) 25 mg capsule Take 25 mg by mouth once daily as needed. 4 Active levothyroxine (SYNTHROID, LEVOTHROID) 50 mcg tablet SMARTSI Tablet(s) By Mouth Every Morning 3 Active lidocaine 2 % solution SMARTSI Milliliter(s) By Mouth Every 3 Hours 4 Active Linzess 145 mcg capsule SMARTSI Capsule(s) By Mouth Daily 3 Active naproxen (NAPROSYN) 500 mg tablet 4 Active omeprazole (PriLOSEC) 40 mg capsule Take 40 mg by mouth. 4 Active pravastatin (PRAVACHOL) 10 mg tablet 4 Active predniSONE 5 mg tablet,delayed release (DR/EC) 5 mg once a day 4 Active Sudafed 30 mg tablet Take 30 mg by mouth every 4 hours as needed. 4 Active rosuvastatin (CRESTOR) 10 mg tablet 3 Active sucralfate (CARAFATE) 1 gram tablet SMARTSI Tablet(s) By Mouth Twice Daily 3 Active triamcinolone acetonide (KENALOG) 0.1% cream SMARTSIG:Topica l Morning-Night PRN Active valACYclovir (VALTREX) 1 gram tablet 4 Active predniSONE (DELTASONE) 10 mg tablet Take 2 pills po QAM as directed 60 tablet 1 4 Active sulfamethoxazole -trimethoprim (BACTRIM DS) 800-160 mg tablet 1 PO 3 x/week (Mondays, Wednesdays, Fridays) 15 tablet 3 4 Active calcium carbonate-vitami n D3 600 mg-20 mcg (800 unit) tablet 1 po bid as instructed 60 tablet 3 4 Active predniSONE (DELTASONE) 5 mg tabletIndication s:Pemphigus vulgaris Take 20mg / 10 mg alternating every other day x 2 weeks, then 20mg / 0 mg every other day x 2 weeks, then 15mg / 0 mg every other day x 2 weeks, then 10mg / 0 mg every other day x 2 weeks, then 5/mg / 0 mg every other day x 2 weeks, then stop 112 tablet 4 Active magic mouthwash (lidocaine-maalo x-diphenhydrAMIN E) 1:1:1 4 Active naproxen 500 mg tablet Take 500 mg by mouth. 4 Active lidocaine w/ preservative (XYLOCAINE) 2% (20 mg/mL) injection Take 15 mL by mouth every 3 (three) hours. 3 Active predniSONE (DELTASONE) 5 mg tablet One tab once a day 4 Active alendronate (FOSAMAX) 70 mg tablet SMARTSI Tablet(s) By Mouth Once a Week Active mycophenolate (CELLCEPT) 500 mg tabletIndication s:Pemphigus vulgaris Take 1 tablet (500 mg total) by mouth 2 times a day. 60 tablet 3 4 Active predniSONE (DELTASONE) 5 mg tablet Take 2 tablets (10mg) every other day for 2 weeks, then 1 tablet (5mg) every other day for 2 weeks, then stop 21 tablet 4 Active Active Problems Problem Noted Date Diagnosed Date Pemphigus vulgaris 10/31/2023 Overview (10/31/2023): Pemphigus, failed prednisone and cellcept, refractory oral lesions Social History Tobacco Use Types Packs/Day Years Used Date Smoking Tobacco: Unknown Tobacco Cessation:Counseling Given: Not Answered Comments Unknown Sex and Gender Information Value Date Recorded Sex Assigned at Female 06/05/2024 10:21 AM EST Legal Sex Female 11:06 AM EDT Gender Identity Female 06/05/2024 10:21 AM EST Sexual Orientation Straight 06/05/2024 10 :21 AM EST Last Filed Vital Signs Vital Sign Reading Time Taken Comments Blood Pressure 132/81 06/06/2024 8:59 AM EST Pulse 69 06/06/2024 8:59 AM EST Temperature 36.4 ??C (97.5 ??F) 06/06/2024 8 :59 AM EST Respiratory Rate 18 06/06/2024 8:59 AM EST Oxygen Saturation 98% 06/06/2024 8:5 9 AM EST Inhaled Oxygen Concentration - - Weight 71.2 kg (156 lb 13.7 oz) 06/06/2024 8:59 AM EST Height 157.2 cm (5' 1.89 ) 11/22/2023 1 1:00 AM EDT double CORNELIA Dye. Body Mass Index 28.79 11/22/2023 11:00 AM EDT Plan of Treatment Upcoming Encounters Date Type Department Care Team (Late st Contact Info) Description 11/21/2024 9:00 AM EDT Infusion [facility] [address] [place] [address] Meredith Samayoa MD [address] [place] [address] 12/05/2024 9:00 AM EDT Infusion [facility] Building Infusion Clinic [address] [place] [address] Meredith Samayoa MD [address] [place] [address] Procedures * Due to [facility] law, this organization might not be sharing negative HIV tests. Procedure Name Priority Date/Time Associated Diagnosis Comments HEPATITIS C ANTIBODY W/REFLEX TO HCV RNA, QUANTITATIVE PCR Routine 10/25/2023 3:57 PM EDT Pemphigus vulgaris High risk medication use from Last 3 Months or Most Recently Relevant to Health Maintenance Results * Due to [place] state law, this organization might not be sharing negative HIV tests. * Hepatitis C Antibody w/Reflex to HCV RNA, Quantitative PCR (10/25/2023 3:57 PM EDT) Hepatitis C Antibody NON-REACT WILFREDO NON-REACT WILFREDO 10/26/2023 2:19 AM EDT [place] Comment: HCV antibody was non-reactive. There is no laboratory evidence of HCV infection. In most cases, no further action is required. However, if recent HCV exposure is suspected, a test for HCV RNA (test code 65064) is suggested. For additional information please refer to http://education.Zipfit.Giftindia24x7.com/faq/IAJ50v9 (This link is being provided for informational/ educational purposes only.) Blood Structure of peripheral vein / Unknown 10/25/2023 3:57 PM EDT 10/25/2023 10:40 PM EDT Narrative [facility] - 10/28/2023 1:56 PM EDT FASTING:NO us Meredith Samayoa MD LAB BLOOD ORDERABLES Final Result [facility] [address] [facility] 3[address], [place] [address], [place] [phone] [facility] [address] [place] [address] from Last 3 Months or Most Recently Relevant to Health Maintenance Insurance [facility] MEDICARE Care Teams Machine Tank Operator Relationship Specialty Start Date End Date Aurelia Blackmon [address] [place] [address] PCP - General Internal Medicine 10/16/23
--- OUTSIDE RECORDS SUMMARY | 2024-08-14 09:38 | XMS_ITS | Encounter Summary ---
Author Organization [employer] Address [address] [facility] 7t [place] [address] Care Team Providers Care Senior Actuarial Analyst Name Role Phone [facility] Primary Care Provider [phone] Reason for Visit * Reason Comments Med Refill Encounter Details Date Type Department Care Team ([facility] st Contact Info) Description 12/02/2023 Refill [facility] MEDICINE [address] [place], [place] [phone] [facility] [address] [place] [address] Social History Tobacco Use Types Packs/Day Years [...] your housing situation today? I have linda sheth 05/12/[address] you li [...] Description 10/15/2024 9:30 AM EDT Office Visit [facility] CH[facility] MED & PEDS [address] [place] [address] Aurelia Blackmon MD [address] [place] [address] documented as of this encounter Visit Diagnoses Not on filedocumented in this encounter Additional Health Concerns Assessment Noted Time PHQ-9 Depression Total Score: 0 05/12/20 23 1:22 PM EST documented as of this encounter Care Teams Senior Actuarial Analyst Relationship Specialty Start Date End Date Carlotta Szymanski FNP [address] [place] [address] PCP - General Family Medicine 02/08/22 documented as of this encounter
--- OUTSIDE RECORDS SUMMARY | 2024-08-14 09:38 | XMS_ITS | Encounter Summary ---
Author Organization [employer] Address [address] [facility] [address]t [place] [address] Care Team Providers Care Correctional Supervisor Lieutenant Name Role Phone Carlotta Szymanski RANGE OPERATOR Primary Care Provider [phone] Encounter Details Date Type Department Care Team ([facility] st Contact Info) Description 07/26/2023 Orders Only [facility] CHC MED & PEDS [address] [place] [address] Aurelia Blackmon MD [address] [place] [address] Pemphigus vulgaris (Primary Dx) Social History Tobacco Use Types Packs/Day Years [...] Description 10/15/2024 9:30 AM EDT Office Visit [facility] CHC MED & PEDS [address] [place] [address] Aurelia Blackmon MD [address] [place] [address] documented as of this encounter Visit Diagnoses Diagnosis Pemphigus vulgaris- Primary Pemphigus documented in this encounter Additional Health Concerns Assessment Noted Time PHQ-9 Depression Total Score: 0 05/12/20 23 1:22 PM EST documented as of this encounter Care Teams Correctional Supervisor Lieutenant Relationship Specialty Start Date End Date Carlotta Szymanski FNP [address] [place] [address] PCP - General Family Medicine 02/08/22 documented as of this encounter
--- OUTSIDE RECORDS SUMMARY | 2024-08-14 09:38 | XMS_ITS | Encounter Summary ---
Author Organization [employer] Address [address] [facility] [address] [place] [address] Care Team Providers Care Brine Process Operator Name Role Phone Carlotta Szymanski DETECTIVE AUTOMOBILE SECTION Primary Care Provider [phone] Reason for Visit * Reason Onset Date Comments Med Refill 05/07/2024 Encounter Details Date Type Department Care Team ([facility] st Contact Info) Description 05/07/2024 Refill [facility] MED & PEDS [address] [place] [address] Aurelia Blackmon MD [address] [place] [address] Pemphigus vulgaris; Dry skin Social History Tobacco Use Types Packs/Day Years [...] Description 10/15/2024 9:30 AM EDT Office Visit [facility] MED & PEDS [address] [place] [address] Aurelia Blackmon MD [address] [place] [address] documented as of this encounter Visit Diagnoses Diagnosis Pemphigus vulgaris Pemphigus Dry skin Other symptoms involving skin and integumentary tissues documented in this encounter Additional Health Concerns Assessment Noted Time PHQ-9 Depression Total Score: 0 05/12/20 23 1:22 PM EST documented as of this encounter Care Teams Brine Process Operator Relationship Specialty Start Date End Date Carlotta Szymanski FNP [address] [place] [address] PCP - General Family Medicine 02/08/22 documented as of this encounter
--- OUTSIDE RECORDS SUMMARY | 2024-08-14 09:38 | XMS_ITS | Encounter Summary ---
Author Organization [employer] Address [address] [place] [address] Care Team Providers Care Insole Reinforcer Name Role Phone Carlotta Szymanski CRATE REPAIRER Primary Care Provider [phone] Reason for Visit * Reason Comments Med Refill Encounter Details Date Type Department Care Team ([facility] st Contact Info) Description 03/23/2024 Refill [facility] [address] [place] [address] Tata Bullard MD [address] [place] [address] Primary hypertension Social History Tobacco Use Types Packs/Day Years [...] is your housing situation today? I have lindaiwona sheth 05/12/[address] you [...] Description 10/15/2024 9:30 AM EDT Office Visit [facility] [address] [place] [address] Aurelia Blackmon MD [address] [place] [address] documented as of this encounter Visit Diagnoses Diagnosis Primary hypertension Unspecified essential hypertension documented in this encounter Additional Health Concerns Assessment Noted Time PHQ-9 Depression Total Score: 0 05/12/20 23 1:22 PM EST documented as of this encounter Care Teams Insole Reinforcer Relationship Specialty Start Date End Date Carlotta Szymanski FNP [address] [place] [address] PCP - General Family Medicine 02/08/22 documented as of this encounter
--- OUTSIDE RECORDS SUMMARY | 2024-08-14 09:38 | XMS_ITS | Encounter Summary ---
Author Organization [employer] Address [address] [facility] 7[address] [place] [address] Care Team Providers Care Professor Of Chemical Engineering Name Role Phone [place] [facility] Primary Care Provider [phone] Reason for Visit * Reason Onset Date Comments Appointment Request 02/06/2024 Encounter Details Date Type Department Care Team ([facility] st Contact Info) Description 02/06/2024 Telephone [facility] [address] [place] [address] [place] [facility] [address] [place] [address] Appointment Request Social History Tobacco Use Types Packs/Day Years [...] encounter Miscellaneous Notes * Telephone Encounter - Magdy Orozco - 02/06/2024 10:26 AM EDT Tc from pt requesting call rosenda regarding Derm appt 04/27. She is requesting to reschedule stating was informed of availability today and advised to call for appt. Please contact pt at [phone]. documented in this encounter Plan of Treatment Upcoming Encounters Date Type Department Care Team ([facility] st Contact Info) Description 10/15/2024 9:30 AM EDT Office Visit [facility] PEDS [address] [place] [address] Aurelia Blackmon MD [address] [place] [address] documented as of this encounter Visit Diagnoses Not on filedocumented in this encounter Additional Health Concerns Assessment Noted Time PHQ-9 Depression Total Score: 0 05/12/20 23 1:22 PM EST documented as of this encounter Care Teams Professor Of Chemical Engineering Relationship Specialty Start Date End Date Carlotta Szymanski FNP [address] [place] [address] PCP - General Family Medicine 02/08/22 documented as of this encounter
--- OUTSIDE RECORDS SUMMARY | 2024-08-14 09:38 | XMS_ITS | Encounter Summary ---
Author Organization [employer] Address [address] [place] [address] Care Team Providers Care Primer Press Operator Name Role Phone [place] [facility] Primary Care Provider [phone] Reason for Visit * Reason Comments Med Refill Encounter Details Date Type Department Care Team ([facility] st Contact Info) Description 07/22/2024 Refill [facility] [address] [place], [place] [id number] [facility] [address] [place] [address] Primary hypothyroidism Social History Tobacco Use Types Packs/Day Years Used Date Smoking Tobacco: Never Passive Smoke Exposure: Never Smokeless Tobacco: Never Alcohol Use Standard Drinks/Week Comments Yes 0 (1 standard drink = 0.6 oz pur e alcohol) Very Rarely Depression Answer Date Recorded Patient Health Questionnaire-9 Score 0 06/19/2024 Patient Health Questionnaire-9 Score 0 06/19/2024 Last PHQ-9: Questionnaire Data Not on file 0 06/19/2024 Housing Stability Answer Date Recorded What is your housing situation today? I have linda sheth 06/11/[address] you li ve. Do you have problems with any of the following? None of the above 06/11/2024 Food Insecurity Answer Date Recorded Within the past 12 months, y ou worried that your food would run out before you got money to buy more: Never True 06/11/2024 Within the past 12 months,th e food you bought just didn't last and you didn't have enough money to get more: Never True Transportation Answer Date Recorded In the past 12 months, has l ack of transportation kept you from medical appts, meetings, work or from getting things needed for daily living? No 06/11/2024 Utilities Answer Date Recorded In the past 12 months, has t he electric, gas, oil or water company threatened to shut off services in your home? No 06/11/2024 Depression Answer Date Recorded Patient Health Questionnaire-2 Score 0 06/19/2024 Internet Access Answer Date Recorded Internet Access Q1 Yes 06/11/2024 Internet Access Q2 Not on file 06/11/2024 Comments Unknown Sex and Gender Information Value [...] 9:30 AM EDT Office Visit [facility] [address] [place] [address] Aurelia Blackmon MD [address] [place] [address] documented as of this encounter Visit Diagnoses Diagnosis Primary hypothyroidism Unspecified hypothyroidism documented in this encounter Additional Health Concerns Assessment Noted Time PHQ-9 Depression Total Score: 0 06/19/19 25 10:13 AM EST documented as of this encounter Care Teams Primer Press Operator Relationship Specialty Start Date End Date Carlotta Szymanski FNP [address] [place] [address] PCP - General Family Medicine 02/08/22 documented as of this encounter
--- OUTSIDE RECORDS SUMMARY | 2024-08-14 09:38 | XMS_ITS | Encounter Summary ---
Author Organization [employer] Address [address] [facility] 7[address] [place] [address] Care Team Providers Care Family Educator Name Role Phone Carlotta Szymanski CROWN PERFORATOR OPERATOR Primary Care Provider [phone] Encounter Details Date Type Department Care Team ([facility] st Contact Info) Description 01/22/2024 Orders Only [facility] [address] [place] [address] Aurelia Blackmon MD [address] [place] [address] Other osteoporosis without current pathological fracture (Primary Dx) Social History Tobacco Use Types [...] Description 10/15/2024 9:30 AM EDT Office Visit [facility] MED & PED[facility] [address] [place] [address] Aurelia Blackmon MD [address] [place] [address] documented as of this encounter Visit Diagnoses Diagnosis Other osteoporosis without current pathological fracture- Primary documented in this encounter Additional Health Concerns Assessment Noted Time PHQ-9 Depression Total Score: 0 05/12/20 23 1:22 PM EST documented as of this encounter Care Teams Family Educator Relationship Specialty Start Date End Date Carlotta Szymanski FNP [address] [place] [address] PCP - General Family Medicine 02/08/22 documented as of this encounter
--- OUTSIDE RECORDS SUMMARY | 2024-08-14 09:38 | XMS_ITS | Encounter Summary ---
Author Organization [employer] Address [address] [facility] 7[address] [place] [address] Care Team Providers Care Resident Care Associate Name Role Phone Carlotta Szymanski JEWEL SAWYER Primary Care Provider [phone] Reason for Visit * Reason Comments Med Refill Encounter Details Date Type Department Care Team ([facility] Contact Info) Description 03/23/2024 Refill [facility] PEDS [address] [place] [address] Aurelia Blackmon MD [address] [place] [address] Gastroesophageal reflux disease without esophagitis Social History Tobacco Use Types Packs/Day Years [...] Description 10/15/2024 9:30 AM EDT Office Visit [facility] MED & PEDS [address] [place] [address] Aurelia Blackmon MD [address] [place] [address] documented as of this encounter Visit Diagnoses Diagnosis Gastroesophageal reflux disease without esophagitis Esophageal reflux documented in this encounter Additional Health Concerns Assessment Noted Time PHQ-9 Depression Total Score: 0 05/12/20 23 1:22 PM EST documented as of this encounter Care Teams Resident Care Associate Relationship Specialty Start Date End Date Carlotta Szymanski FNP [address] [place] [address] PCP - General Family Medicine 02/08/22 documented as of this encounter
--- OUTSIDE RECORDS SUMMARY | 2024-08-14 09:38 | XMS_ITS | Encounter Summary ---
Author Organization [employer] Address [address] [facility] 7 [place] [address] Care Team Providers Care Hr Payroll Coordinator Name Role Phone Carlotta Szymanski MOLD YARD WORKER Primary Care Provider [phone] Reason for Visit * Reason Comments Med Refill Encounter Details Date Type Department Care Team ([facility] Contact Info) Description 04/03/2023 Refill [facility] & PEDS [address] [place] [address] Aurelia Blackmon MD [address] [place] [address] Social History Tobacco Use Types Packs/Day Years Used Date Smoking Tobacco: Never Passive Smoke Exposure: Never Smokeless Tobacco: Never Alcohol Use Standard Drinks/Week Comments Yes 0 (1 standard drink = 0.6 oz pur e alcohol) Very Rarely Depression Answer Date Recorded Patient Health Questionnaire-9 Score 0 11/10/2022 Housing Stability Answer Date Recorded What is your housing situation today? I do not have housing (Staying with others, in a hotel, in a skilled nursing, living outside on the street, on a beach, in a car, or in a park 03/19/[address] you li ve. Do you have problems with any of the following? None of the above 03/19/2023 Food Insecurity Answer Date Recorded Within the [...] Date Recorded Patient Health Questionnaire-2 Score 0 11/10/2022 Comments Unknown Sex and Gender Information Value [...] Description 10/15/2024 9:30 AM EDT Office Visit [facility] MED & PEDS [address] [place] [address] Aurelia Blackmon MD [address] [place] [address] documented as of this encounter Visit Diagnoses Not on filedocumented in this encounter Additional Health Concerns Assessment Noted Time PHQ-9 Depression Total Score: 0 11/11/19 23 1:09 PM EDT documented as of this encounter Care Teams Hr Payroll Coordinator Relationship Specialty Start Date End Date Carlotta Szymanski FNP [address] [place] [address] PCP - General Family Medicine 02/08/22 documented as of this encounter
--- OUTSIDE RECORDS SUMMARY | 2024-08-14 09:38 | XMS_ITS | Clinical Summary ---
Author Organization [employer] Address 75 [facility] 7t [place] [address] Care Team Providers Care Pairer Substandard Name Role Phone Carlotta Szymanski COLLECTION TELLER Primary Care Provider [phone] Allergies No known active allergies Medications cetirizine (ZyrTEC) 10 MG tabletIndication s:Papulovesicula r rash,Allergic conjunctivitis of both eyes Take 1 tablet (10 mg) by mouth if needed each day for allergies (Itching). 30 tablet 2 023 Active ketotifen (Zaditor) 0.025 % ophthalmic solutionIndicati ons:Allergic conjunctivitis of both eyes Administer 1 drop into both eyes every 12 (twelve) hours if needed (eyeredness/itchi ng). 10 mL 023 Active halobetasol (UltraVATE) 0.05 % ointmentIndicati ons:Pemphigus vulgaris Apply topically 2 times daily. 50 g 2 023 Active triamcinolone (Kenalog) 0.1 % creamIndications :Pemphigus vulgaris Apply topically if needed in the morning and at bedtime (pain and swelling). 453 g 1 023 Active lidocaine (Xylocaine) 2 % solutionIndicati ons:Pemphigus vulgaris Take 15 mL by mouth every 3 (three) hours. 100 mL 2 023 Active omeprazole (PriLOSEC) [address] capsuleIndicatio ns:Gastroesophag eal reflux disease without esophagitis Take 1 capsule (40 mg) by mouth before breakfast. Do not crush or chew. 30 capsule 11 024 Active IKR-Xcjm-BwHoqq- MgHydr-Simeth (First-Mouthwash BLM) suspensionIndica tions:Pemphigus vulgaris USE 10 ML IN THE MOUTH OR THROAT IF NEEDED IN THE MORNING, AT NOON, IN THE EVENING, AND AT BEDTIME FOR MUCOSITIS. 1 PART OF DIPHENHYDRAMINE HCL 12.5 MG/5 ML, 1 PART OF MAALOX, 1 PART OF 2% VISCOUS LIDOCAINE. QUANTITY 120 ML. SWISH, GARGLE AND SPIT 10 ML EVERY 4 TO 6 HOURS. 237 mL 3 024 Active diphenHYDRAMINE- AlumMg Hydrox-Lidocaine viscous (MAGIC MouthWASH) suspensionIndica tions:Pemphigus vulgaris Use 15 mL in the mouth or throat if needed in the morning, at noon, in the evening, and at bedtime for mucositis. 180 mL 024 Active pravastatin (Pravachol) 20 MG tablet TAKE 1 TABLET BY MOUTH EVERY DAY 90 tablet 024 Active betamethasone, augmented, (Diprolene) 0.05 % gelIndications:P emphigus vulgaris APPLY TOPICALLY TO ULCER OF THE LEFT CHEEK TWICE DAILY 15 g 024 Active amLODIPine (Norvasc) 10 MG tabletIndication s:Primary hypertension TAKE 1 TABLET BY MOUTH EVERY DAY 90 tablet 024 Active triamcinolone (Kenalog) 0.1 % creamIndications :Dry skin Apply topically if needed in the morning and at bedtime (pain and swelling). 80 g 024 Active amitriptyline (Elavil) 10 MG tabletIndication s:Insomnia, unspecified type Take 1 tablet (10 mg) by mouth at bedtime. 30 tablet 11 025 2025 Active cholecalciferol (Vitamin D-3) 50 MCG (1999 UT) capsuleIndicatio ns:Other osteoporosis without current pathological fracture Take 1 capsule (50 mcg) by mouth Once per day. 90 capsule 3 025 2025 Active calcium carbonate (Calcium 600) 600 MG tabletIndication s:Other osteoporosis without current pathological fracture Take 1 tablet (600 mg) by mouth with breakfast and with evening meal. 60 tablet 11 025 2025 Active levothyroxine (Synthroid, Levoxyl) 25 MCG tabletIndication s:Primary hypothyroidism TAKE 1 TABLET(25 MCG) BY MOUTH BEFORE BREAKFAST 30 tablet 11 025 Active levothyroxine (Synthroid) 25 MCG tabletIndication s:Primary hypothyroidism Take 1 tablet (25 mcg) by mouth before breakfast. 30 tablet 11 023 2024 Discontinued Active Problems Problem Noted Date Diagnosed Date Immunocompromised patient 06/19/2024 Other osteoporosis without current pathological fracture 01/22/2024 Healthcare maintenance 02/22/2023 Overview (02/22/2023): Mammo: December 2021 [place] [facility] [facility] [place] BMD: 2021, need records Mixed hyperlipidemia 02/22/2023 Overview (05/18/2023): ?? Rosuvastatin 10mg ?? ASCVD 7.7% Assessment & Plan (05/18/2023 8:43 AM EST): ?? Did not start rosuvastatin. Will re send today Most common side effects include diarrhea and upset stomach. Avoid grapefruit juice while taking this medication. Rare but serious side effects include hepatic inflammation and myopathy. Contact health center immediately if experiencing muscle weakness or signs of liver dysfunction including yellowing of the skin or eyes, dark colored urine, or stomach pain that does not improve. Advised weight loss and dietary modifications to reduce cholesterol and prevent atherosclerotic events ?? Avoid foods high in saturated fat and to increase foods high in fiber. Review available resources on https://www.heart.org/en/health-topics/cholesterol/ngnyrkrxnix-pukgw-agk-resourc es to learn more about lifestyle management. ?? Pemphigus vulgaris 10/14/2022 Primary hypertension 09/09/2022 Overview (02/22/2023): ?? Amlodipine 10mg Maintenance: BMP: 12/2022 Lipid Panel: 12/2022 ASCVD Risk: 7.7% EKG: Obtain baseline at f/u - Aerobic exercise to reduce BP. Initial goal of 30 min walk 3-5x/week. Increase as tolerated. - low-sodium diet (goal: <2g/day) and heart healthy diet such as DASH to reduce BP and prevent ASCVD. - Home BP monitoring 1-2 x day with goal of <140/90. - Seek immediate medical attention for chest pain, palpitations, SOB, syncope, or sudden changes in mental status. - Do not change or discontinue current prescriptions without first consulting health care provider Assessment & Plan (05/18/2023 8:42 AM EST): ?? Well controlled ?? Continue current regimen Acquired hypothyroidism 11/14/2016 Overview (05/18/2023): ?? Levothyroxine 50mcg Assessment & Plan (05/18/2023 8:44 AM EST): ?? 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 The patient and her daughter have been very distressed due to not receiving an answer for what is wrong. We were rosalba enough to have a dermatology team in the building today and they were kind enough to come over to blue team and take a look. 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 They requested the patient go to their clinic for further assessment. The patient and her daughter agreed and went to the derm clinic. Derm requested hydroxyzine prescription. I noticed an RPR had not been ordered for this patient. I figured it would be prudent to order one. Hospital discharge follow-up 10/06/2022 02/22/2023 Encounters Date Type Department Care Team Description 07/22/2024 Refill [facility] [address] [place] [address] Flora, Carlotta, [facility] Primary hypothyroidism 07/10/2024 Travel 07/08/2024 Telephone [facility] [address] [place] [address] StephonCarlotta FNP 07/04/[address] [facility] [address] [place] [address] Flora Carlotta [facility] recall appt (Pt needs appt) 06/19/2024 10:00 AM EST Office Visit [facility] [address] [facility] [place] [address] FloraCarlotta 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 [address] [place], [place] [phone] Flora Carlotta [facility] Pre-visit Planning (SDOH negative, Tobacco screening negative. ) from Last 3 Months Immunizations Name Administration Dates Next Due Influenza High-dose Quadrivalent Preservative Fr ee 05/12/2023 Influenza injectable quadriv alent IIV4 with preservative 03/29/2017 Moderna Covid-19 Vaccine 12+ 11/09/2020,10/13/19 21 Pneumococcal Conjugate PCV 20 11/10/2022 Tdap 02/11/2021 Family History Medical History Relation Name Comments Stroke Mother Relation Name Status Comments Mother Social History Tobacco Use Types Packs/Day Years Used Date Smoking Tobacco: Never Passive Smoke Exposure: Never Smokeless Tobacco: Never Tobacco Cessation:Counseling Given: Not Answered Alcohol Use Standard Drinks/Week Comments Yes 0 [...] not to disclose 2021 10:31 AM EDT Last Filed Vital Signs Vital Sign Reading Time Taken Comments Blood Pressure 130/80 06/19/2024 10:07 AM EST Pulse 84 06/19/2024 10:07 AM EST Temperature 36.6 ??C (97.9 ??F) 06/19/2024 10:[address] Respiratory Rate 18 06/19/2024 10:07 AM EST Oxygen Saturation 100% 05/07/2024 11:34 AM EST Inhaled Oxygen Concentration - - Weight 71.7 kg (158 lb) 06/19/2024 10:07 AM EST Height 154.9 cm (5' 1 ) 06/19/2024 10:07 AM EST Body Mass Index 29.85 06/19/2024 10:07 AM EST Plan of Treatment Upcoming Encounters Date Type Department Care Team (Late st Contact Info) Description 10/15/2024 9:30 AM EDT Office Visit [facility] [address] [place] [address] Aurelia Blackmon MD [address] [place] [address] Health Maintenance Due Date Last Done Comments CT Colonography 1956 Colonoscopy 1956 Colorectal Cancer Screening 1956 FIT DNA/Cologuard 1956 FIT 1956 FOBT 1956 Sigmoidoscopy 1956 Hepatitis C Screening 1974 Zoster Vaccines (1 of 2) 08/24/1975 RSV Patients and Patients Aged 60 years or older (1 - Risk 60-74 years 1-dose series) 2016 COVID-19 Vaccine (3 - Modern a risk series) 12/07/2020 11/09/2020, 10/12/2020 Mammogram 12/15/2022 12/15/2021, 03/31/2021 Influenza Vaccine (#1) 2024 , 03/29/2017 SDOH Screening 06/11/2025 06/11/2024 Alcohol/Substance Use Screening 06/19/2025 06/19/2024 Depression Screening 06/19/2025 06/19/2024, 06/19/2024 Tobacco Screening 06/20/2025 06/20/2024 Lipid Panel 07/04/2028 07/04/2023, 11/10/2022, 02/11/2021 DTaP/Tdap/Td Vaccines (2 - T d or Tdap) 02/11/2031 02/11/2021 Cervical Cancer Screening Discontinued HPV/Cotest Discontinued 03/29/2017 Pneumococcal Vaccine: 50+ Years Completed 11/10/2022 HIB Vaccines Aged Out No longer eligi [...] patient's age to complete this topic Meningococcal Vaccine Aged Out No macie tasha eligible based on patient's age to complete this topic Pap Smear Discontinued RSV under 20 months Aged Out No longe r eligible based on patient's age to complete this topic Rotavirus Vaccines Aged Out No longer eligible based on patient's age to complete this topic Procedures Procedure Name Priority Date/Time Associated Diagnosis Comments LIPID PANEL, STANDARD Routine 07/04/2023 8:42 AM EST MAMMOGRAM GENERIC Routine 12/15/2021 2:4 0 PM EDT ZZZ HISTORICAL HPV MRNA E6/E7 Routine 03/29/2017 3:50 PM EDT from Last 3 Months or Most Recently Relevant to Health Maintenance Results * (ABNORMAL) Lipid Panel, Standard (07/04/2023 8:42 AM EST) Triglycerides 60 <150 mg/dL [facility] Comment:Desirable Triglyceri de: less than 150 mg/dLBorderline High Triglyceride 150-199 mg/dLHigh Triglyceride: 200-499 mg/dLVery High Triglyceride: greater than or equal to 5OO mg/dL Cholesterol 178 <200 mg/dL [facility] Comment:Desirable Cholestero l: less than 200 mg/dLBorderline High Cholesterol: 200-239 mg/dLHigh Cholesterol: greater than 239 mg/dL LDL Cholesterol Calculated 101(H) <100 mg/dL [facility] Comment:Desirable LDL: less than 100 mg/dLNear Optimal/Above Optimal LDL: 110- 129 mg/dLBorderline High LDL: 130-159 mg/dLHigh LDL: 160-189 mg/dLVery High LDL: greater than or equal to 190 mg/dL HDL Cholesterol 65 >40 mg/dL [facility] Comment:Desirable HDL: great er than 40 mg/dL Note: This HDL assay may give artificially low results in patients with liver disease. 07/04/2023 8:42 AM EST 07/04/2023 11:24 AM EST [facility] COLLECTION TELLER LAB BLOOD ORDERABLES Final Re sult [facility] [address] [place] [phone] * Mammography Report 1 (12/15/2021 2:40 PM EDT) Anatomical Region Laterality Modality Breast Bilateral Mammography 12/15/2021 2:40 PM EDT Narrative 12/16/2021 8:05 AM EDT Refer to the Notes tab for result details [facility] Procedure: Mammography Report 1 Procedure Note Provider, MD Karlos - 09/04/2022 Refer to the Notes tab for result details [facility] Procedure: Mammography Report 1 us Lenora Fabian COLLECTION TELLER IMG BI PROCEDURES Final Result * HPV mRNA E6/E7 (03/29/2017 3:50 PM EDT) HPV mRNA E6/E7 Not Detected NOT DETECTED [facility] Comment: This test was performed using the APTIMA(R) HPV Assay ([employer] This assay detects E6/E7 viral messenger RNA (mRNA) from 14 high-risk HPV types (16,18,31,33,35,39,45,51, 52,56,58,59,66,68). For additional information please refer to: http://education.Profit Software/faq/YFD246u3 (This link is being provided for informational/ educational purposes only.) Test Performed by [facility], [facility], [address] [place] [id number] Ronak Farah M.D., Ph.D., Director of Laboratories , [facility] [id number] Please note: ??Effective 02/22/2016, HPV testing will be performed using [employer] APTIMA test which targets mRNA. Detecting mRNA instead of DNA, as in older methods, offers significant improvements in specificity. 03/29/2017 3:50 PM EDT us Shital Casas CNM HISTORICAL/NON ORDERABLE LABS Final Result [facility] [address] from Last 3 Months or Most Recently Relevant to Health Maintenance Insurance [facility] STANDARD MEDICARE Care Teams Pairer Substandard Relationship Specialty Start Date End Date Carlotta Szymanski FNP [address] [place] [phone] PCP - General Family Medicine 02/08/22
--- OUTSIDE RECORDS SUMMARY | 2024-08-14 09:38 | XMS_ITS | Encounter Summary ---
Author Organization [employer] Address [address] [facility] 7 [place] [address] Care Team Providers Care Dumper Operator Name Role Phone Carlotta Szymanski AIR SUPPORT OPERATIONS OPERATOR Primary Care Provider [phone] Encounter Details Date Type Department Care Team ([facility] Contact Info) Description 03/08/2023 Orders Only [facility] [address] [place] [address] Aurelia Blackmon MD [address] [place] [address] Pemphigus vulgaris (Primary Dx) Social History Tobacco Use Types Packs/Day Years Used Date Smoking Tobacco: Never Passive Smoke Exposure: Never Smokeless Tobacco: Never Alcohol Use Standard Drinks/Week Comments Yes 0 (1 standard drink = 0.6 oz pur e alcohol) Very Rarely Depression Answer Date Recorded Patient Health Questionnaire-9 Score 0 11/10/2022 Depression Answer Date Recorded Patient Health Questionnaire-2 [...] Upcoming Encounters Date Type Department Care Team ([facility] Contact Info) Description 10/15/2024 9:30 AM EDT Office Visit [facility] [address] [place] [address] Aurelia Blackmon MD [address] [place] [address] documented as of this encounter Visit Diagnoses Diagnosis Pemphigus vulgaris- Primary Pemphigus documented in this encounter Additional Health Concerns Assessment Noted Time PHQ-9 Depression Total Score: 0 11/11/19 23 1:09 PM EDT documented as of this encounter Care Teams Dumper Operator Relationship Specialty Start Date End Date Carlotta Szymanski FNP [address] [place] [phone] PCP - General Family Medicine 02/08/22 documented as of this encounter
--- OUTSIDE RECORDS SUMMARY | 2024-08-14 09:38 | XMS_ITS | Encounter Summary ---
Author Organization [employer] Address [address] [facility] 7t [place] [address] Care Team Providers Care Value Engineer Name Role Phone [facility] Primary Care Provider [phone] Reason for Visit * Reason Onset Date Comments Reschedule 05/01/2023 Encounter Details Date Type Department Care Team ([facility] st Contact Info) Description 05/01/2023 Telephone [facility] [address] [place], [place] [phone] [place] [facility] [address] [place] [address] Reschedule Social History Tobacco Use Types Packs/Day Years [...] with others, in a hotel, in a residential, living outside on the street, on a [...] encounter Miscellaneous Notes * Telephone Encounter - Bernie Nash - 05/01/2023 4:28 PM EST Tc from pt requesting to r/s 04/25 derm appointment. Please contact pt at [phone] (Macedonian) documented in this encounter Plan of Treatment Upcoming Encounters Date Type Department Care Team (Late st Contact Info) Description 10/15/2024 9:30 AM EDT Office Visit [facility] [address] [place] [address] Aurelia Blackmon MD [address] [place] [address] documented as of this encounter Visit Diagnoses Not on filedocumented in this encounter Additional Health Concerns Assessment Noted Time PHQ-9 Depression Total Score: 0 11/11/19 1:09 PM EDT documented as of this encounter Care Teams Value Engineer Relationship Specialty Start Date End Date Carlotta Szymanski FNP [address] [place] [phone] PCP - General Family Medicine 02/08/22 documented as of this encounter
--- OUTSIDE RECORDS SUMMARY | 2024-08-14 09:38 | XMS_ITS | Encounter Summary ---
Author Organization [employer] Address [address] [facility] 7t [place] [address] Care Team Providers Care Tower Dragline Operator Name Role Phone [facility] Primary Care Provider [phone] Reason for Visit * Reason Onset Date Comments ER Follow-up 09/20/2022 Encounter Details Date Type Department Care Team (Late st Contact Info) Description 09/20/2022 Telephone [facility] [address] [place] [address] [facility] [address] [place], [place] [phone] ER Follow-up Social History Tobacco Use Types Packs/Day Years Used Date Smoking Tobacco: Never Passive Smoke Exposure: Never Smokeless Tobacco: Never Comments Unknown Sex and Gender Information Value Date Recorded Sex Assigned at Female 04/11/2022 10:31 AM EDT Legal Sex Female 10:31 AM EDT Gender Identity Female 04/11/2022 10:31 AM EDT Sexual Orientation Choose not to disclose 2021 10:31 AM EDT COVID-19 Exposure Response Date Recorded In the last 10 days, have yo u been in contact with someone who was confirmed or suspected to have Coronavirus/COVID-19? No / Unsure 09/19/2022 11:08 AM EDT documented as of this encounter Miscellaneous Notes * Telephone Encounter - Ash Dorsey - 09/20/2022 11:50 AM EDT Patient calling to report ED visit on 09/20/22 at [facility]. Diagnosed with pain. Patient advised will forward to team nurse for follow up. documented in this encounter Plan of Treatment Upcoming Encounters Date Type Department Care Team (Late st Contact Info) Description 10/15/2024 9:30 AM EDT Office Visit [facility] [address] [place], [place] [phone] Aurelia Blackmon MD [address] [place], [place] [phone] documented as of this encounter Visit Diagnoses Not on filedocumented in this encounter Care Teams Tower Dragline Operator Relationship Specialty Start Date End Date Carlotta Szymanski FNP [address] [place] [id number] PCP - General Family Medicine 02/08/22 documented as of this encounter
--- OUTSIDE RECORDS SUMMARY | 2024-08-14 09:38 | XMS_ITS | Encounter Summary ---
Author Organization [employer] Address 75 [facility] 7t [place] [address] Care Team Providers Care Tandem Operator Name Role Phone Carlotta Szymanski ROBOTICS TECHNOLOGIST Primary Care Provider [phone] Reason for Visit * Reason Comments Med Refill Encounter Details Date Type Department Care Team ([facility] Contact Info) Description 07/03/2023 Refill [facility] [address] [place] [address] Aurelia Blackmon MD [address] [place] [address] Pemphigus vulgaris Social History Tobacco Use Types Packs/Day Years [...] Description 10/15/2024 9:30 AM EDT Office Visit [facility] [address] [place] [address] Aurelia Blackmon MD [address] [place] [address] documented as of this encounter Visit Diagnoses Diagnosis Pemphigus vulgaris Pemphigus documented in this encounter Additional Health Concerns Assessment Noted Time PHQ-9 Depression Total Score: 0 05/12/20 23 1:22 PM EST documented as of this encounter Care Teams Tandem Operator Relationship Specialty Start Date End Date Carlotta Szymanski FNP [address] [place] [phone] PCP - General Family Medicine 02/08/22 documented as of this encounter
--- OUTSIDE RECORDS SUMMARY | 2024-08-14 09:38 | XMS_ITS | Clinical Summary ---
Author Organization [facility] Address [address] [place] [address] Care Team Providers Care Duct Layer Helper Name Role Phone Aurelia Blackmon Primary Care Provider + [phone] Allergies No known active allergies Medications magic [...] failed prednisone and cellcept, refractory oral lesions Encounters Date Type Department Care Team Description 06/06/2024 9:00 AM EST Infusion [facility] Infusion [address] [address] Meredith Samayoa MD Waugh, Kelsey, CORNELIA Pemphigus vulgaris (Primary Dx) 05/23/2024 10:00 AM EST Infusion [address] [address] Meredith Samayoa MD Sandholm, Michele L, RN Pemphigus vulgaris (Primary Dx) from Last 3 Months Social History Tobacco Use Types Packs/Day Years [...] Info) Description 11/21/2024 9:00 AM EDT Infusion [facility] [address] [place] [address] Meredith Samayoa MD [address] [place] [address] 12/05/2024 9:00 AM EDT Infusion [facility] [address] [place] [address] Meredith Samayoa MD [address] [place] [address] Health Maintenance Due Date Last Done Comments Cologuard 1955 Colon Cancer Screening 1955 Colonoscopy 1955 FOBT / Fit Test 1956 Sigmoidoscopy 1956 Zoster Vaccines (1 of 2) 08/24/1975 RSV Vaccine (60+ years old a nd patients) (1 - Risk 60-74 years 1-dose series) 2016 COVID-19 Vaccine (3 - Modern a risk series) 12/07/2020 11/09/2020, 10/12/2020 Mammogram 12/16/2023 12/15/2021 Influenza Vaccine (#1) 2024 , 03/29/2017 Alcohol/Substance Use Screening 06/12/2024 Depression Screening and Follow-Up 06/12/2024 Health Care Proxy Review 06/12/2024 Social Drivers of Health Annual Screening 06/12/2024 DTaP,Tdap,and Td Vaccines (2 - Td or Tdap) 02/11/2031 02/11/2021 Pneumococcal Vaccine: 50+ Years Completed 11/10/2022 Hepatitis C Screening Completed 10/25/2023 Osteoporosis Screening Completed 12/19/2023 Hepatitis B Vaccines Aged Out No long er eligible based on patient's age to complete this topic Procedures * Due to [place] state law, this organization might not be sharing negative HIV tests. Procedure Name Priority Date/Time Associated Diagnosis Comments HEPATITIS C ANTIBODY W/REFLEX TO HCV RNA, QUANTITATIVE PCR Routine 10/25/2023 3:57 PM EDT Pemphigus vulgaris High risk medication use from Last 3 Months or Most Recently Relevant to Health Maintenance Results * Due to [place] state law, this organization might not be sharing negative HIV tests. * Hepatitis C Antibody w/Reflex to HCV RNA, Quantitative PCR (10/25/2023 3:57 PM EDT) Hepatitis C Antibody NON-REACT WILFREDO NON-REACT WILFREDO 10/26/2023 2:19 AM EDT [facility] Comment: HCV antibody was non-reactive. There is no laboratory evidence of HCV infection. In most cases, no further action is required. However, if recent HCV exposure is suspected, a test for HCV RNA (test code 08161) is suggested. For additional information please refer to http://education.Pocket Social/faq/TFQ38h9 (This link is being provided for informational/ educational purposes only.) Blood Structure of peripheral vein / Unknown 10/25/2023 3:57 PM EDT 10/25/2023 10:40 PM EDT Narrative [facility] - 10/28/2023 1:56 PM EDT FASTING:NO Meredith Samayoa MD LAB BLOOD ORDERABLES Final Result [facility] [address] [facility] 3rd Floor, [place] [address], [employer] [facility] [address] [place] [address] from Last 3 Months or Most Recently Relevant to Health Maintenance Insurance [facility] MEDICARE Care Teams Duct Layer Helper Relationship Specialty Start Date End Date Aurelia Blackmon [address] [place] [id number] PCP - General Internal Medicine 10/16/23
--- OUTSIDE RECORDS SUMMARY | 2024-08-14 09:38 | XMS_ITS | Encounter Summary ---
Author Organization [employer] Address [address] [facility] [address] [place] [address] Care Team Providers Care International Recruiter Name Role Phone Carlotta Szymanski PRIVATE DUTY RN Primary Care Provider [phone] Encounter Details Date Type Department Care Team ([facility] st Contact Info) Description 06/08/2023 Orders Only [facility] PEDS [address] [place] [address] Aurelia Blackmon MD [address] [place] [address] Social History Tobacco Use Types Packs/Day Years [...] Description 10/15/2024 9:30 AM EDT Office Visit [facility]S [address] [place] [address] Aurelia Blackmon MD [address] [place] [address] documented as of this encounter Visit Diagnoses Not on filedocumented in this encounter Additional Health Concerns Assessment Noted Time PHQ-9 Depression Total Score: 0 05/12/20 23 1:22 PM EST documented as of this encounter Care Teams International Recruiter Relationship Specialty Start Date End Date Carlotta Szymanski FNP [address] [place] [address] PCP - General Family Medicine 02/08/22 documented as of this encounter
--- OUTSIDE RECORDS SUMMARY | 2024-08-14 09:38 | XMS_ITS | Encounter Summary ---
Author Organization [facility] Address [address] [place] [address] Care Team Providers Care Cork Tipper Name Role Phone Aurelia Blackmon Primary Care Provider + [phone] Encounter Details Date Type Department Care Team (Late st Contact Info) Description 10/16/2023 Transcribe Orders [facility] Physician Referral Services [address] [place] [address] Aurelia Blackmon [address] [place] [address] Pemphigus vulgaris (Primary Dx) Social History Tobacco Use Types Packs/Day Years Used Date Smoking Tobacco: Never Assessed Comments Unknown Sex and Gender Information Value Date Recorded Sex Assigned at Female 06/05/2024 10:21 AM EST Legal Sex Female 11:06 AM EDT Gender Identity Female 06/05/2024 10:21 AM EST Sexual Orientation Straight 06/05/2024 10 :21 AM EST documented as of this encounter Plan of Treatment Upcoming Encounters Date Type Department Care Team (Late st Contact Info) Description 11/21/2024 9:00 AM EDT Infusion [facility] [address] [place] [address] Meredith Samayoa MD [address] [place] [address] 12/05/2024 9:00 AM EDT Infusion [facility] [address] [place] [address] Meredith Samayoa MD [address] [place] [address] documented as of this encounter Visit Diagnoses Diagnosis Pemphigus vulgaris- Primary Pemphigus documented in this encounter Care Teams Cork Tipper Relationship Specialty Start Date End Date Aurelia Blackmon [address] [place] [address] PCP - General Internal Medicine 10/16/23 documented as of this encounter
--- OUTSIDE RECORDS SUMMARY | 2024-08-14 09:38 | XMS_ITS | Encounter Summary ---
Author Organization [employer] Address [address] [facility] 7[address] [place] [address] Care Team Providers Care Detective Lieutenant Name Role Phone Carlotta Szymanski SAP BI ARCHITECT Primary Care Provider [phone] Reason for Visit * Reason Comments Med Refill Encounter Details Date Type Department Care Team ([facility] Contact Info) Description 07/03/2023 Refill [facility] MED [facility] PEDS [address] [place] [address] Aurelia Blackmon MD [address] [place] [address] Pemphigus vulgaris Social History Tobacco Use Types [...] 9:30 AM EDT Office Visit [facility] [address] [place] [address] Aurelia Blackmon MD [address] [place] [address] documented as of this encounter Visit Diagnoses Diagnosis Pemphigus vulgaris Pemphigus documented in this encounter Additional Health Concerns Assessment Noted Time PHQ-9 Depression Total Score: 0 05/12/20 23 1:22 PM EST documented as of this encounter Care Teams Detective Lieutenant Relationship Specialty Start Date End Date Carlotta Szymanski FNP [address] [place] [address] PCP - General Family Medicine 02/08/22 documented as of this encounter
[2024-08-14 10:01] LABS: Creatinine, mg/dL 47.19
[2024-08-14 10:39] LABS: Creatinine, 24Hr Urine 0.9 G/Day (1.0-2.0); Total Volume 24 Hour Urine 1925 mL
[2024-08-16 16:18] LABS: Calcium, 24 Hr Urine 293 mg/24 h; Calcium/Creatinine Ratio 310 mg/g creat (30-275); Creatinine 24Hr Urine 0.94 g/24 h (0.50-2.15)
== END 2024-08-14 08:52 | disposition home or self-care (01) ==
LOC: HO.LNP 08:51
PROVIDERS: Visit Provider Internal Medicine Endocrinology, Diabetes & Metabolism
DX: M81.0 Age-related osteoporosis without current pathological fracture (principal)
CPT/HCPCS: 82340; 82570

== ENCOUNTER 2024-08-28 10:10 | Outpatient (REF) | payer MEDICARE, MEDICAID, SELFPAY ==
[2024-08-28 11:51] LABS: Creatinine, mg/dL 49.03
[2024-08-28 12:03] LABS: Vitamin D 25-OH Total 39.5 ng/mL (>30)
[2024-08-28 14:37] LABS: Creatinine, 24Hr Urine 1.1 G/Day (1.0-2.0); Total Volume 24 Hour Urine 2200 mL
[2024-08-29 18:08] LABS: Calcium, 24 Hr Urine 264 mg/24 h; Calcium/Creatinine Ratio 240 mg/g creat (30-275)
[2024-08-29 21:23] LABS: Prot Elec - Alpha1 0.3 g/dL (0.2-0.3); Prot Elec - Alpha2 0.8 g/dL (0.5-0.9); Prot Elec - Beta 1 0.4 g/dL (0.4-0.6); Prot Elec - Beta 2 0.4 g/dL (0.2-0.5); Prot Elec - Gamma 1.1 g/dL (0.8-1.7)
== END 2024-08-28 10:11 | disposition home or self-care (01) ==
LOC: HO.LAB 10:10
PROVIDERS: PCP Registered Nurse; Visit Provider Internal Medicine Endocrinology, Diabetes & Metabolism
DX: M81.0 Age-related osteoporosis without current pathological fracture (principal)
CPT/HCPCS: 36415; 82306; 82340; 82570; 84100; 84165

== ENCOUNTER 2024-09-05 08:46 | Emergency (ER) | payer MEDICARE, MEDICAID, SELFPAY ==
--- NOTE | ~2024-09-05 | CT_ITS ---
EXAMINATION: CT ABDOMEN AND PELVIS WITHOUT CONTRAST CLINICAL INFORMATION: Pelvic pain and urinary symptoms,? Stone. COMPARISON: None available. TECHNIQUE: Multidetector volumetric imaging was performed from the superior aspect of the liver through the pubic symphysis. Sagittal and coronal reformatted images were obtained on the technologist's workstation. This CT examination was performed using dose optimization techniques as appropriate, variously including the following: *Automated exposure control *Adjustment of mA and/or kV according to patient size (this includes techniques or standardized protocols for targeted exams where dose is matched to indication/reason for exam; i.e. extremities or head) *Use of iterative reconstruction technique FINDINGS: LUNG BASES: Mildly elevated right hemidiaphragm. Lung bases demonstrate mild/minor atelectasis dependently. No effusions. Mild cardiac enlargement. No pericardial effusion. Normal GE junction. LIVER, GALLBLADDER, AND BILIARY TREE: The unenhanced liver is normal in size, shape, and attenuation. No focal hepatic lesion or biliary ductal dilatation is present. The gallbladder is unremarkable with no evidence of radiopaque gallstones, gallbladder wall thickening, or obvious pericholecystic inflammatory changes. PANCREAS: Unremarkable. SPLEEN: Unremarkable. ADRENAL GLANDS: Unremarkable. KIDNEYS AND URETERS: The kidneys are normal in size, shape, and attenuation. No hydronephrosis, hydroureter, or calculi seen. No perinephric stranding. BLADDER: Unremarkable. GASTROINTESTINAL TRACT: There is diffuse moderate colonic diverticulosis present. There is no evidence of acute diverticulitis. The small bowel is normal in caliber and course. The stomach is somewhat decompressed but otherwise normal. The duodenum appears normal. Normal appendix visualized. No rectal abnormalities. ABDOMINAL WALL: No significant hernia is appreciated. LYMPH NODES: Normal. VASCULAR: Unremarkable. PELVIC VISCERA: The uterus and adnexa are unremarkable. OSSEOUS STRUCTURES: No suspicious lytic or blastic bone lesion. Mild right convex lumbar scoliosis. CT/CT abdomen pelvis wo IV con IMPRESSION: 1. No acute findings in the abdomen or pelvis. No urological calculus or obstruction. 2. Ancillary findings as discussed. Electronically signed by: Kostas Booker MD 09/05/2024 10:58 AM EDT
[2024-09-05 08:49] VITALS: BP 113/59; PULSE 75; RESP 18; TEMP 37.4; O2SAT 96; BMI 27.7
[2024-09-05 09:21] LABS: MANUAL DIFF FLAG NO
[2024-09-05 09:22] LABS: Basophils Percent Auto 0.5 % (0-2); Eosinophils Absolute Auto 0.3 X10*3/uL (0.0-0.4); Hematocrit 37.5 % (37.0-47.0); Hemoglobin 12.2 g/dl (12.0-16.0); Imm Gran Abs Auto 0.02 X10*3/uL (0.00-0.03); Imm Gran Pct Auto 0.2 % (0.0-0.4); Lymphocytes Absolute Auto 2.6 X10*3/uL (1.2-4.9); Lymphocytes Percent Auto 32.4 % (20-40); Mean Corpuscular HGB Conc 32.5 g/dl (31.0-35.0); Mean Corpuscular Hemoglobin 25.7 pg (27.0-33.0); Mean Corpuscular Volume 79.1 fL (80.0-98.0); Mean Platelet Volume 9.5 fL (9.4-12.3); Monocytes Absolute Auto 0.7 X10*3/uL (0.1-1.2); Monocytes Percent Auto 8.3 % (2-11); Neutrophils Absolute Auto 4.4 x10*3/uL (2.0-8.3); Neutrophils Percent Auto 54.6 % (45-73); Platelet Count 257 X10*3/uL (160-400); Red Blood Count 4.74 X10*6/uL (4.20-5.50); Red Cell Distribution Width 13.3 % (11.0-16.0)
[2024-09-05 09:24] LABS: Appearance Urine Clear; Color Urine Yellow; Glucose Urine UA Negative (Negative); Leukocyte Esterase Urine Trace (Negative); Nitrite Urine Negative (Negative); UMIC TRIGGER UACC YES; Urine Blood Negative (Negative); Urine Ketones Negative (Negative); Urine Protein Negative (Neg-Trace)
[2024-09-05 09:26] LABS: Bacteria Urine None Seen (None Seen); Hyaline Casts Urine 0-2 /LPF (0-2); RBC Urine 0-2 /HPF (0-2); Squamous Epithelial Cell Urine 0-2 /HPF (0-2); WBC Urine 0-5 /HPF (0-5)
[2024-09-05 09:36] LABS: Alanine Aminotransferase 25 U/L (0-31); Albumin Level 3.8 g/dL (3.5-5.0); Alkaline Phosphatase 156 U/L (39-117); Anion Gap 12 (12-20); Aspartate Amino Transferase 25 U/L (5-31); Bilirubin Total 0.4 mg/dL (0.0-1.0); Blood Urea Nitrogen 9 mg/dL (9-16); Calcium 9.2 mg/dL (8.4-10.2); Carbon Dioxide 20 mmol/L (22-29); Chloride 113 mmol/L (96-108); Creatinine Clr Calc Pharmacy 78.8; Estimated Glomerular Filt Rate > 60; Glucose Random 122 mg/dL (60-115); Potassium 3.7 mmol/L (3.3-5.1); Sodium 141 mmol/L (135-145); Total Protein 6.7 g/dL (6.5-8.0)
--- NOTE | 2024-09-05 09:36 | ED.ABDPAIN ---
HPI - Abdominal Pain General Chief Complaint: Abdominal Pain Stated Complaint: back pain, pelvic pain, unable to use bathroom Time Seen by Provider: 09/05/24 09:22 Source: patient Mode of arrival: ambulatory Limitations: no limitations History of Present Illness ED Provider: DINORAH ARELLANO PA-C HPI narrative: 69 year old female with pmhx significant for hypothyroidism and HTN presents to the ED today for evaluation of lower back pain, abdominal pain, and urinary symptoms x2 days. She reports her pain initially began in her bilateral lower back. Pain is now radiating to bilateral lower abdomen. She reports some urinary hesitancy and voiding in small amounts with occasional dysuria. Denies any hematuria. Denies fever, chills, flank pain, chest pain, sob, nausea or vomiting. Denies injury/trauma/falls. Denies hx of spinal surgery. Denies hx of IVDU. Denies numbness/tingling/weakness of the lower extremities, saddle anesthesia, bowel or bladder incontinence or retention. Related Data Home Medications ?Medication ?Instructions ?Recorded ?Confirmed amlodipine 5 mg tablet 5 mg PO DAILY 05/04/21 05/04/21 levothyroxine 50 mcg capsule 50 mcg PO DAILY 05/04/21 05/04/21 cetirizine 10 mg tablet 10 mg PO DAILY 09/30/22 hydrocortisone 2.5 % topical cream appl topical BID 09/30/22 alendronate 70 mg tablet 70 mg PO QWEEK 05/29/24 Previous Rx's ?Medication ?Instructions ?Recorded food supplemt, lactose-reduced See Rx Instructions .Route 09/30/22 (Ensure High Protein oral liquid) .COMPLEX #5,688 mL omeprazole 40 mg capsule,delayed 40 mg PO DAILY #90 caps 09/30/22 release metronidazole 500 mg tablet 1,000 mg (2 x 500 mg) PO BID #56 10/13/22 tabs linaclotide 145 mcg capsule 145 mcg PO DAILY #30 caps 03/01/23 (Linzess) sucralfate 1 gram tablet 1 g PO BEDTIME PRN acid reflux #90 03/01/23 tabs linaclotide 290 mcg capsule 290 mcg PO QAM #30 caps 12/28/23 (Linzess) Allergies Allergy/AdvReac Type Severity Reaction Status Date / Time No Known Allergies Allergy Verified 09/05/24 08:50 [No Known Allergies*] Review of Systems Review of Systems Yes all other systems are reviewed and are negative [facility] Past Medical History Attestation statement: The following information was validated with the patient. Source: old records reviewed, obtained from family (daughter) and nursing notes reviewed Medical History Osteoporosis Acquired hypothyroidism Hypertension Goiter Surgical History History of esophagogastroduodenoscopy (EGD) Hx of colonoscopy Hx of right knee surgery Family History Family History Mother Diabetes Social History Social History Alcohol intake: current Alcohol intake frequency: holidays/special occasions only Patient Tobacco Use Status: Never used Tobacco Advance Directives: No Advance Directives Information Provided: Yes Do you have a plan to hurt others: No Plan Physical Exam ED Vital Signs: Vital Signs - 24 hr 09/05/24 08:49 Temperature 99.4 F Pulse Rate 75 Respiratory Rate 18 Blood Pressure 113/59 L Pulse Oximetry 96 Oxygen Delivery Method Room Air BMI result Body Mass Index 27.7 vitals stable, afebrile General: well appearing, in no acute distress. Skin: Warm, dry, intact. No rashes or lesions. Head: Normocephalic, atraumatic. EENT: Hearing is intact b/l. Conjunctiva clear. PERRLA. EOM intact. Moist mucous membranes.? Neck: Supple without LAD. FROM. Trachea midline.? Cardiac: Chest wall symmetric. RRR Lungs: Normal respiratory effort without accessory muscle use. CTA bilaterally. Abdomen: soft, non-tender, non-distended. No rebound tenderness or guarding. Positive BS x4. no cvat. Back: no midline spinous tenderness or deformity, mild right sided lumbar paraspinal muscle tenderness. no fluctuance or mass. Ext: Upper and lower extremities atraumatic, without tenderness, deformity, swelling or erythema Neuro: AOx3. Normal speech. Ambulating with steady gait. Course Course Course Narrative: CBC without leukocytosis or left shift. No anemia. H&H stable. Chemistry without acute electrolyte abnormality requiring intervention. No RO. Random glucose 122. Liver function around baseline. Urine without infection. Negative COVID, flu, RSV. ct a/p showing diffuse moderate colonic diverticulosis without evidence of diverticulitis. I appreciate moderate amount of stool throughout the colon. No evidence of hydronephrosis. No perinephric stranding. No ureteral calculi. Bladder unremarkable. no appreciable vertabral compression fracture. > discussed all work up results with patient and daughter. reports significant improvement with IVF and toradol. ?constipation v msk strain. advised colace/ miralax along with tylenol at home. f/u with PCP. Patient has remained stable throughout ED visit today. Discussed worrisome signs and symptoms and when to return to the ED. All questions answered at this time. Patient is agreeable with disposition and stable for discharge. Medical Decision Making Medical Decision Making [facility] Narrative: 69 year old female with pmhx significant for hypothyroidism and HTN presents to the ED today for evaluation of lower back pain, abdominal pain, and urinary symptoms x2 days. vitals are stable. she is well appearing and in NAD. On exam, abdomen is soft, non-tender, non-distended. No rebound tenderness or guarding. Positive BS x4. no cvat. bladder not palpable. no midline spinous tenderness or deformity, mild right sided lumbar paraspinal muscle tenderness. no fluctuance or mass. sensation/ strength intact throughout. ambulating with steady gait. no back pain red flags. Differential diagnosis includes anemia, electrolyte abnormality, dehydration, constipation, UTI, renal colic, nephrolithiasis, msk sprain/strain. Unlikely compression fracture, cauda equina, Guillain-Truchas, epidural abscess, cord compression. exam not consistent with ACS, AAA, arrhythmia, dissection. Plan for labs, UA, CT, IVF + pain control, re-evaluation. Differential Diagnosis Differential Diagnoses: The differential diagnosis associated with the presentation includes as above. Admission/Observation not indicated. Lab Data [facility] Lab Attestation statement: I reviewed the patient's lab results. as above. 09/05/24 09:17 09/05/24 09:17 Labs: Lab Results 09/05/24 Range/Units 09:17 WBC 8.0 (4.8-10.8) X10*3/uL RBC 4.74 (4.20-5.50) X10*6/uL Hgb 12.2 (12.0-16.0) g/dl Hct 37.5 (37.0-47.0) % MCV 79.1 L (80.0-98.0) fL MCH 25.7 L (27.0-33.0) pg MCHC 32.5 (31.0-35.0) g/dl RDW 13.3 (11.0-16.0) % Plt Count 257 (160-400) X10*3/uL MPV 9.5 (9.4-12.3) fL Immature Gran % (Auto) 0.2 (0.0-0.4) % Neut % (Auto) 54.6 (45-73) % Lymph % (Auto) 32.4 (20-40) % Laurel % (Auto) 8.3 (2-11) % Eos % (Auto) 4.0 (0-4) % Baso % (Auto) 0.5 (0-2) % Lymph # (Auto) 2.6 (1.2-4.9) X10*3/uL Laurel # (Auto) 0.7 (0.1-1.2) X10*3/uL Eos # (Auto) 0.3 (0.0-0.4) X10*3/uL Baso # (Auto) 0.0 (0.0-0.2) X10*3/uL Abs Immat Gran (auto) 0.02 (0.00-0.03) X10*3/uL Absolute Neuts (auto) 4.4 (2.0-8.3) x10*3/uL Absolute Nucleated RBC 0.000 (0.0-0.012) X10*3/uL Nucleated RBC % (auto) 0.0 (0.0-0.2) /100WBC Sodium 141 (135-145) mmol/L Potassium 3.7 (3.3-5.1) mmol/L Chloride 113 H (96-108) mmol/L Carbon Dioxide 20 L (22-29) mmol/L Anion Gap 12 (12-20) BUN 9 (9-16) mg/dL Creatinine 0.62 (0.5-1.4) mg/dL Estim Creat Clear Calc 78.8 Estimated GFR > 60 Random Glucose 122 H (60-115) mg/dL Calcium 9.2 (8.4-10.2) mg/dL Total Bilirubin 0.4 (0.0-1.0) mg/dL AST 25 (5-31) U/L ALT 25 (0-31) U/L Alkaline Phosphatase 156 H (39-117) U/L Total Protein 6.7 (6.5-8.0) g/dL Albumin 3.8 (3.5-5.0) g/dL Urine Color Yellow Urine Appearance Clear Urine pH 6.0 (5.0-9.0) Ur Specific [place] 1.010 (1.005-1.025) Urine Protein Negative (Neg-Trace) mg/dL Urine Glucose (UA) Negative (Negative) mg/dL Urine Ketones Negative (Negative) mg/dL Urine Blood Negative (Negative) Urine Nitrite Negative (Negative) Ur Leukocyte Esterase Trace H (Negative) Urine RBC 0-2 (0-2) /HPF Urine WBC 0-5 (0-5) /HPF Ur Squamous Epith Cells 0-2 (0-2) /HPF Urine Bacteria None Seen (None Seen) Hyaline Casts 0-2 (0-2) /LPF Influenza Type A (PCR) NEGATIVE (Negative) Influenza Type B (PCR) NEGATIVE (Negative) RSV RNA Qual (PCR) NEGATIVE (Negative) SARS-CoV-2 RNA (RT-PCR) NEGATIVE (Negative) Independent Interpretation I performed an independent interpretation of an: CT Scan Interpretation: ct s/p with scattered stool throughout colon, no obstruction, no ureteral stones Radiology Impression Discussion of test interpretation with radiology: I have reviewed the radiologist's reading. Radiologist Impression: Procedure(s): CT abdomen pelvis wo IV con Accession Number(s): [id number] cc: Dinorah Arellano; [facility]~ Report Number: [id number]: Total DLP = 570.00 mGy-cm EXAMINATION: CT ABDOMEN AND PELVIS WITHOUT CONTRAST CLINICAL INFORMATION: Pelvic pain and urinary symptoms,? Stone. COMPARISON: None available. TECHNIQUE: Multidetector volumetric imaging was performed from the superior aspect of the liver through the pubic symphysis. Sagittal and coronal reformatted images were obtained on the technologist's workstation. This CT examination was performed using dose optimization techniques as appropriate, variously including the following: *Automated exposure control *Adjustment of mA and/or kV according to patient size (this includes techniques or standardized protocols for targeted exams where dose is matched to indication/reason for exam; i.e. extremities or head) *Use of iterative reconstruction technique FINDINGS: LUNG BASES: Mildly elevated right hemidiaphragm. Lung bases demonstrate mild/minor atelectasis dependently. No effusions. Mild cardiac enlargement. No pericardial effusion. Normal GE junction. LIVER, GALLBLADDER, AND BILIARY TREE: The unenhanced liver is normal in size, shape, and attenuation. No focal hepatic lesion or biliary ductal dilatation is present. The gallbladder is unremarkable with no evidence of radiopaque gallstones, gallbladder wall thickening, or obvious pericholecystic inflammatory changes. PANCREAS: Unremarkable. SPLEEN: Unremarkable. ADRENAL GLANDS: Unremarkable. KIDNEYS AND URETERS: The kidneys are normal in size, shape, and attenuation. No hydronephrosis, hydroureter, or calculi seen. No perinephric stranding. BLADDER: Unremarkable. GASTROINTESTINAL TRACT: There is diffuse moderate colonic diverticulosis present. There is no evidence of acute diverticulitis. The small bowel is normal in caliber and course. The stomach is somewhat decompressed but otherwise normal. The duodenum appears normal. Normal appendix visualized. No rectal abnormalities. ABDOMINAL WALL: No significant hernia is appreciated. LYMPH NODES: Normal. VASCULAR: Unremarkable. PELVIC VISCERA: The uterus and adnexa are unremarkable. OSSEOUS STRUCTURES: No suspicious lytic or blastic bone lesion. Mild right convex lumbar scoliosis. CT/CT abdomen pelvis wo IV con IMPRESSION: 1. No acute findings in the abdomen or pelvis. No urological calculus or obstruction. 2. Ancillary findings as discussed. Electronically signed by: Kostas Booker MD 09/05/2024 10:58 AM EDT Independent Historian Clinical information obtained from an independent historian. History obtained from or confirmed by: Other (daughter) External Record Review External record reviewed: Inpatient record Prescription Management I considered prescription management with: Pain Medication Chronic Conditions Patient?s care impacted by: Hypertension Social Determinants Patient?s care significantly limited by Social Determinants of Health including: Other Social Determinant of Health Medications Administered Discontinued Medications Generic Name Dose Route Start Last Admin Trade Name Freq PRN Reason Stop Dose Admin Sodium Chloride 1,000 mls @ 999 mls/hr 09/05/24 10:00 09/05/24 10:44 Ns IV 09/05/24 11:00 999 mls/hr .Q1H1M VASHTI Administration Ketorolac Tromethamine 15 mg 09/05/24 09:57 09/05/24 10:43 Ketorolac Tromethamine 15 Mg/Ml Vial IVPUSH 09/05/24 09:58 15 mg ONCE ONE Administration Critical Care Time Critical Care Time Critical Care Time: No Discharge Plan Discharge Clinical Impression: Constipation Patient Disposition: Home, Self-Care Instructions: Constipation (ED) Additional Instructions: Your lab work up today is unremarkable. Your urine does not demonstrate infection. Your imaging shows that you are constipated. See home care intructions. There is no evidence of obstruction. I recommend using stool softeners such as colace 100 mg twice daily. In addition, take over the counter miralax 2-3 times daily until you begin having multiple large volume bowel movements. You may take tylenol arthritic strength at home as needed for pain. Follow up with your primary doctor. Return with new or worsening symptoms. In the case of an emergency call 911. Prescriptions: No Action Linzess 290 mcg capsule 290 mcg PO QAM Qty: 30 4RF levothyroxine 50 mcg capsule 50 mcg PO DAILY amlodipine 5 mg tablet 5 mg PO DAILY metronidazole 500 mg tablet 1,000 mg PO BID Qty: 56 0RF Linzess 145 mcg capsule 145 mcg PO DAILY Qty: 30 2RF sucralfate 1 gram tablet 1 g PO BEDTIME PRN (Reason: acid reflux) Qty: 90 1RF alendronate 70 mg tablet 70 mg PO QWEEK cetirizine 10 mg tablet 10 mg PO DAILY hydrocortisone 2.5 % cream topical BID omeprazole 40 mg capsule,delayed release(DR/EC) 40 mg PO DAILY Qty: 90 3RF Ensure High Protein Liquid See Rx Instructions .ROUTE .COMPLEX Qty: 5688 2RF Rx Instructions: one bottle po 3 times a day; Referrals: Carlotta Szymanski, [employer]ISTANT [Primary Care Provider] - Print Language: Vietnamese
[2024-09-05 10:03] LABS: Influenza A PCR NEGATIVE (Negative); Influenza B PCR NEGATIVE (Negative); Resp Syncy Virus RNA Qual PCR NEGATIVE (Negative); SARS COV2 PCR INHOUSE NEGATIVE (Negative)
[2024-09-05] MEDS: Ketorolac Tromethamine 15 MG/ML VIAL IVPUSH (10:43)
[2024-09-05] MEDS: 0.9 % Sodium Chloride 1,000 ML 999 ML IV (10:44)
[2024-09-05 12:29] VITALS: BP 113/59; PULSE 75; RESP 18; TEMP 37.4; O2SAT 96
== END 2024-09-05 12:29 | disposition home or self-care (01) ==
PROVIDERS: Emergency Provider Emergency Medicine; PCP Registered Nurse
DX: K59.00 Constipation, unspecified (principal); M54.50 Low back pain, unspecified; I10 Essential (primary) hypertension; Z03.818 Encounter for observation for suspected exposure to other biological agents ruled out; Z79.899 Other long term (current) drug therapy
CPT/HCPCS: 0241U; 74176; 80053; 81001; 85025; 96374; 99284; J1885

== ENCOUNTER → 2024-09-05 09:56 | Outpatient (BNV) | payer MEDICARE, MEDICAID, SELFPAY | PROVIDERS: Emergency Provider Emergency Medicine; PCP Registered Nurse; Visit Provider Radiology Diagnostic Radiology | DX: R10.2 Pelvic and perineal pain (principal) | CPT/HCPCS: 74176 ==

== ENCOUNTER 2024-10-01 08:03 | Outpatient (AMB) | payer MEDICARE, MEDICAID, SELFPAY ==
--- NOTE | 2024-10-01 08:04 | A.OFFVIS_ITS ---
Vital Signs 10/01/24 08:10 Height 5 ft 2.11 in Weight 150 lb 9.211 oz BMI 27.4 BP 112/72 Blood Pressure Location Rt brachial Position Sitting Pulse 71 Pulse Source Pulse Oximeter Pulse Oximetry (%) 97 Oxygen Delivery Method Room Air Intake Visit Reasons: f/u osteoporosis Intake Note: Patient present today for Osteoporosis follow up. Advertising Director Required: Yes Advertising Director Language: Housekeeper Hospital Services: Advertising Director Offered & Declined Accompanied by: Daughter Allergies No Known Allergies [No Known Allergies*] Allergy (Verified 10/01/24 08:11) Medication List - Last Reconciled 10/01/24 by Tonny Weber MD alendronate 70 mg PO QWEEK amlodipine 5 mg PO DAILY cetirizine 10 mg PO DAILY cholecalciferol (vitamin D3) 50 mcg PO DAILY food supplemt, lactose-reduced (Ensure High Protein oral liquid) one bottle po 3 times a day; hydrocortisone 2.5% appl topical BID levothyroxine 50 mcg PO DAILY linaclotide (Linzess) 290 mcg PO QAM linaclotide (Linzess) 145 mcg PO DAILY omeprazole 40 mg PO DAILY sucralfate 1 g PO BEDTIME PRN HPI Comments Details: 69 YO Female with hx of Pemphigus vulgaris vulgaris is seen in consultation at the request of PCP for Osteoporosis. First diagnosed in this yr . Received steroids for 12 mos Received treatment in the past with alendronate , from 01/2024 to 05/2024 . Not Tolerated treatment with bone pain . No history of pathologic fracture or ONJ. Has several servings of dietary calcium per day in the form of yogurt. milk . Not Takes Calcium supplement . Not Takes Took PPI, -anticoagulant,- antiepileptic + glucocorticoid medication as above . Does weight bearing exercise 2 days per week in the form of walking . 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 UTD on dental cleanings and sees dentist every 6 months. No planned upcoming dental work or extractions. DXA dated 12/19/2023:FINDINGS: LEFT FEMUR, NECK: Current: BMD 0.727 g/cm2, Z-score -0.8, T-score -2.2, osteopenia. Baseline: BMD 0.777 g/cm2. LEFT FEMUR, TOTAL: Current: BMD 0.817 g/cm2, Z-score -0.3, T-score -1.5, osteopenia, 7.8% decrease from baseline (<5% change is not significant). Baseline: BMD 0.886 g/cm2. AP SPINE L1-L4: Current: BMD 0.779 g/cm2, Z-score -1.9, T-score -3.3, osteoporosis, 8.8% decrease from baseline (<5% change is not significant). Baseline: BMD 0.854 g/cm2. IDENTIFIED RISK FACTORS: Menopause, glucocorticoids, secondary osteoporosis (hyperthyroidism). HISTORY OF FRACTURE: None listed. MEDICATIONS: Calcium supplements or multivitamin, vitamin D. MM/XR DEXA axial skeleton IMPRESSION: 1. DIAGNOSIS: Osteoporosis based on the lowest T-score value o Labs: Secondary workup is negative The patient is a 69-year-old female presenting with osteoporosis management. She previously used alendronate but experienced intolerance. Her bone density is markedly low, increasing her risk for fracture. There are no reports of cancerous treatments that involve the bones, heart attacks, or strokes within the past year. Insurance limitations may impact treatment access. The patient's urinary calcium level was high; hence, dietary intake of calcium was recommended in lieu of supplements. She adheres to vitamin D supplementation regularly. Lifestyle modifications include exercising at the gym five days weekly and part-time work for social activity. She maintains these routines well. - Engages in gym exercises five days a week with good tolerance. - Activities include walking and general exercise routines. [facility] Medical History Osteoporosis Acquired hypothyroidism Hypertension Goiter Surgical History History of esophagogastroduodenoscopy (EGD) Hx of colonoscopy Hx of right knee surgery Family History Mother Diabetes Social History Alcohol intake: current Alcohol intake frequency: holidays/special occasions only Patient Tobacco Use Status: Never used Tobacco Physical Exam Vital Signs: BMI result Body Mass Index 27.4 Assessment & Plan Assessment & Plan (1) Osteoporosis: Code(s): M81.0 - Age-related osteoporosis without current pathological fracture Category: Medical Plan: This is a 69-year-old female with a history of osteoporosis. Rule out secondary causes. Vitamin-D level was low normal but not correctedl. She was previously intolerant of alendronate Plan is to consider the use of anabolic such as Evenity, Tymlos or Forteo considering the very low bone density and high risk of fracture 1. Osteoporosis Osteoporosis management focused on switching to a potent bone-building treatment like Evenity pending insurance. If denied, a self-administration option like Forteo or Tymlos is an alternative. Recommendations include dietary calcium and vitamin D maintenance and consistent exercise. 2. Hypercalciuria Dietary calcium intake is the approach due to high urine calcium, necessitating a focus on dietary monitoring and adherence. The patient had an opportunity to ask questions regarding treatment plan. The p atient expressed understanding and agreement with the above treatment plan. - Continue exercising regularly, five times a week. - Maintain vitamin D supplements daily. - Obtain calcium through dietary sources, avoiding supplements. - Follow fall prevention measures at home. - Watch for any signs of new bone pain or fractures. - Await nurse?s call for updates on medication coverage. - Return in four months for a follow-up assessment. - Contact primary care for hand pain evaluation. Patient was informed and verbally consented to the use of an ambient scribe for clinic note documentation during this visit. Medications: New romosozumab-aqqg (Evenity) 210 mg (2.34 mL) subcut .q month 2.34 mL 11RF Coding Level of Care Code Est Pt Level 3 (68936) Diagnoses Osteoporosis M81.0
[2024-10-01 08:10] VITALS: BP 112/72; PULSE 71; O2SAT 97; BMI 27.4
--- OUTSIDE RECORDS SUMMARY | 2024-10-01 08:12 | XMS_ITS | Encounter Summary ---
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 OR ADVOCATE AND Primary Care Provider [phone] Reason for Visit * Reason Onset Date Comments Med Refill 05/07/2024 Encounter Details Date Type Department Care Team ([facility] st Contact Info) Description 05/07/2024 Refill [facility] [address] [place] [address] Aurelia Blackmon MD [address] [place] [address] Pemphigus vulgaris; Dry skin Social History Tobacco [...] Description 10/15/2024 9:30 AM EDT Office Visit [facility] [address] [place] [address] Aurelia Blackmon MD [address] [place] [address] documented as of this encounter Visit Diagnoses Diagnosis Pemphigus vulgaris Pemphigus Dry skin Other symptoms involving skin and integumentary tissues documented in this encounter Additional Health Concerns Assessment Noted Time PHQ-9 Depression Total Score: 0 05/12/20 23 1:22 PM EST documented as of this encounter Care Teams Audio/Video Engineer Relationship Specialty Start Date End Date Carlotta Szymanski FNP [address] [place] [id number] PCP - General Family Medicine 02/08/22 documented as of this encounter
--- OUTSIDE RECORDS SUMMARY | 2024-10-01 08:13 | XMS_ITS | Encounter Summary ---
Author Organization [employer] Address [address] [facility] [address] [place] [address] Care Team Providers Care Watch Band Assembler Name Role Phone [place] [facility] Primary Care Provider [phone] Reason for Visit * Reason Onset Date Comments Appointment Request 02/06/2024 Encounter Details Date Type Department Care Team ([facility] st Contact Info) Description 02/06/2024 Telephone [facility] [address] [place] [address] [place] [facility] [address] [place] [address] Appointment Request Social History Tobacco Use Types [...] call for appt. Please contact pt at [phone]. documented in this encounter Plan of Treatment Upcoming Encounters Date Type Department Care Team ([facility] st Contact Info) Description 10/15/2024 9:30 AM EDT Office Visit [facility] [address] [place] [address] Aurelia Blackmon MD [address] [place] [address] documented as of this encounter Visit Diagnoses Not on filedocumented in this encounter Additional Health Concerns Assessment Noted Time PHQ-9 Depression Total Score: 0 05/12/20 23 1:22 PM EST documented as of this encounter Care Teams Watch Band Assembler Relationship Specialty Start Date End Date Carlotta Szymanski FNP [address] [place] [id number] PCP - General Family Medicine 02/08/22 documented as of this encounter
--- OUTSIDE RECORDS SUMMARY | 2024-10-01 08:13 | XMS_ITS | Clinical Summary ---
Author Organization [facility] it Address [address] [place] [address] Care Team Providers Care Alarm Security Or Surveillance Monitor Name Role Phone Unavailable Primary Care Provider [...] - 2023-2 5 season) 2024 Influenza Vaccine (Season Ended) 2025 RSV Immunization Adult Patie nts (1 - 1-dose 75+ series) 08/24/2031 HIB [...] age to complete this topic Meningococcal B Vaccine Aged Out No l onger eligible based on patient's age to complete this topic RSV Immunization Patients Un nani 20 months Aged Out No longer eligible b ased on patient's age to complete this topic Varicella Vaccines Aged Out No longer eligible based on patient's age to complete this topic
--- OUTSIDE RECORDS SUMMARY | 2024-10-01 08:13 | XMS_ITS | Clinical Summary ---
Author Organization [employer] Address [address] [facility] [address] [place] [address] Care Team Providers Care Matrix Repairer Name Role Phone Carlotta Szymanski ARTIST CONSULTANT Primary Care Provider Allergies No known active allergies Medications cetirizine [...] Do not crush or chew. 30 capsule 024 Active XXR-Nwsx-LaVrbm- MgHydr-Simeth (First-Mouthwash BLM) suspensionIndica tions:Pemphigus vulgaris USE 10 ML IN THE MOUTH OR THROAT IF NEEDED IN THE MORNING, AT NOON, IN THE EVENING, AND AT BEDTIME FOR MUCOSITIS. 1 PART OF DIPHENHYDRAMINE HCL 12.5 MG/5 ML, 1 PART OF MAALOX, 1 PART OF 2% VISCOUS LIDOCAINE. QUANTITY 120 ML. SWISH, GARGLE AND SPIT 10 ML EVERY 4 TO 6 HOURS. 237 mL Active diphenHYDRAMINE- AlumMg Hydrox-Lidocaine viscous (MAGIC MouthWASH) suspensionIndica tions:Pemphigus vulgaris Use 15 mL in the mouth or throat if needed in the morning, at noon, in the evening, and at bedtime for mucositis. 180 mL Active pravastatin (Pravachol) 20 MG tablet TAKE 1 TABLET BY MOUTH EVERY DAY 90 tablet 024 Active amLODIPine (Norvasc) 10 MG tabletIndication s:Primary hypertension TAKE 1 TABLET BY MOUTH EVERY DAY 90 tablet 024 Active triamcinolone (Kenalog) 0.1 % creamIndications :Dry skin Apply topically if needed in the morning and at bedtime (pain and swelling). 80 g Active amitriptyline (Elavil) 10 MG tabletIndication s:Insomnia, unspecified type Take 1 tablet (10 mg) by mouth at bedtime. 30 tablet 025 2025 Active cholecalciferol (Vitamin D-3) 50 MCG (1999) capsuleIndicatio ns:Other osteoporosis without current pathological fracture Take 1 capsule (50 mcg) by mouth Once per day. 90 capsule 025 2025 Active calcium carbonate (Calcium 600) 600 MG tabletIndication s:Other osteoporosis without current pathological fracture Take 1 tablet (600 mg) by mouth with breakfast and with evening meal. 60 tablet 025 2025 Active levothyroxine (Synthroid, Levoxyl) 25 MCG tabletIndication s:Primary hypothyroidism TAKE 1 TABLET(25 MCG) BY MOUTH BEFORE BREAKFAST 30 tablet 11 025 Active betamethasone, augmented, (Diprolene) 0.05 % gelIndications:P nickigus vulgaris APPLY TOPICALLY TO ULCER OF THE LEFT CHEEK TWICE DAILY 15 g 025 Active betamethasone, augmented, (Diprolene) 0.05 % gelIndications:P emphigus vulgaris APPLY TOPICALLY TO ULCER OF THE LEFT CHEEK TWICE DAILY 15 g 024 2024 Discontinued Active Problems Problem Noted Date Diagnosed Date Immunocompromised patient 06/19/2024 Other osteoporosis without current pathological fracture 01/22/2024 Healthcare maintenance 02/22/2023 Overview (02/22/2023): Mammo: December 2021 Pap: December 2021 at [facility] C-scope: Colonoscopy and endoscopy at [facility] 2022 BMD: 2021, need records Mixed hyperlipidemia [...] high in fiber. Review available resources on https://www.heart.org/en/health-topics/cholesterol/tvicjsmwaho-bpnsr-elz-resourc es to learn more about lifestyle management. [...] Encounters Date Type Department Care Team Description 09/25/2024 Refill [facility] MED & PEDS [address] [place] [address] Aurelia Blackmon MD Pemphigus vulgaris 09/05/2024 Orders Only GENERIC EXTERNAL DATA DEPARTMENT Provider, Generic External Data 09/05/2024 Telephone [facility] MEDICINE [address] [place] [address] [facility] Nurse Triage 08/28/2024 Orders Only GENERIC EXTERNAL DATA DEPARTMENT Provider, Generic External Data 07/22/2024 Refill [facility] MED[facility]INE [address] [facility] [place] [address] [facility] Primary hypothyroidism 07/10/2024 Travel 07/08/2024 Telephone [facility] MEDICINE [address] [place] [address] [facility] 07/04/2024 Telephone [facility] MED & PEDS [address] [place], [place] [phone] [facility] recall appt (Pt needs appt) from Last 3 Months Immunizations Name Administration [...] 9:30 AM EDT Office Visit [facility] MED & PEDS [address] [place] [address] Aurelia Blackmon MD [address] [place] [address] Health Maintenance Due Date Last Done Comments [...] Procedure Name Priority Date/Time Associated Diagnosis Comments CT ABDOMEN PELVIS WO CONTRAST Routine 09/05/2024 10:03 AM EDT COMPREHENSIVE METABOLIC PANEL Routine 09/05/2024 9:17 AM EDT URINALYSIS, COMPLETE, WITH REFLEX TO CULTURE Routine 09/05/2024 9:17 AM EDT CBC WITH AUTO DIFFERENTIAL Routine 09/05/2024 9:17 AM EDT SARS COV2/INFLUENZA A/B AND RSV RNA QL NAAT Routine 09/05/2024 9:17 AM EDT PROTEIN, TOTAL AND PROTEIN ELECTROPHORESIS Routine 08/28/2024 10:24 AM EDT VITAMIN D,25-OH,TOTAL,IA Routine 08/28/2024 10:24 AM EDT PHOSPHATE ( PHOSPHORUS) Routine 08/28/2024 10:24 AM EDT CALCIUM, 24 HOUR URINE (W/ CREATININE) Routine 08/28/2024 5:00 AM EDT CREATININE, 24 HR GROUP Routine 08/29/19 25 5:00 AM EDT LIPID PANEL, STANDARD Routine 07/04/2023 8:42 AM EST MAMMOGRAM GENERIC Routine 12/15/2021 2:4 0 PM EDT ZZZ HISTORICAL HPV MRNA E6/E7 Routine 03/29/2017 3:50 PM EDT from Last 3 Months or Most Recently Relevant to Health Maintenance Results * CT Abdomen Pelvis w/o Contrast (09/05/2024 10:03 AM EDT) Anatomical Region Laterality Modality Body, Pelvis, Abdomen Computed T omography 09/05/2024 10:0 3 AM EDT Narrative 09/05/2024 11:00 AM EDT ? [facility] ?[address] ?[place] [address] ? CT Scan Report ? Signed ? Patient: Wilner De Gu,Ruthie ?MR#: ?? [id number] ? : 1955 ?Acct:[id number] ? Age/Sex: 69 / F ?ADM Date: 09/05/24 ? Loc: HO.ED ? Attending Dr: ? Ordering Physician: Dinorah Arellano ?? Date of Service: 09/05/24 ?? Procedure(s): CT abdomen pelvis wo IV con ?? Accession Number(s): [id number] ? cc: Dinorah Arellano; Carlotta Szymanski ARTIST CONSULTANT ? Report Number: ?? [id number]: Total DLP = ??570.00 mGy-cm ?? EXAMINATION: ?? CT ABDOMEN AND PELVIS WITHOUT CONTRAST ? CLINICAL INFORMATION: ?? Pelvic pain and urinary symptoms,? Stone. ? COMPARISON: ?? None available. ? TECHNIQUE: ?? Multidetector volumetric imaging was performed from the superior aspect ?? of the liver through the pubic symphysis. Sagittal and coronal ?? reformatted images were obtained on the technologist's workstation. ? This CT examination was performed using dose optimization techniques as ?? appropriate, variously including the following: ?? *Automated exposure control ?? *Adjustment of mA and/or kV according to patient size (this includes ?? techniques or standardized protocols for targeted exams where dose is ?? matched to indication/reason for exam; i.e. extremities or head) ?? *Use of iterative reconstruction technique ? FINDINGS: ?? LUNG BASES: ?? Mildly elevated right hemidiaphragm. ?? Lung bases demonstrate mild/minor atelectasis dependently. No effusions. ?? Mild cardiac enlargement. No pericardial effusion. ?? Normal GE junction. ? LIVER, GALLBLADDER, AND BILIARY TREE: The unenhanced liver is normal in ?? size, shape, and attenuation. No focal hepatic lesion or biliary ductal ?? dilatation is present. The gallbladder is unremarkable with no evidence ?? of radiopaque gallstones, gallbladder wall thickening, or obvious ?? pericholecystic inflammatory changes. ? PANCREAS: Unremarkable. ? SPLEEN: Unremarkable. ? ADRENAL GLANDS: Unremarkable. ? KIDNEYS AND URETERS: The kidneys are normal in size, shape, and ?? attenuation. No hydronephrosis, hydroureter, or calculi seen. No ?? perinephric stranding. ? BLADDER: Unremarkable. ? GASTROINTESTINAL TRACT: ?? There is diffuse moderate colonic diverticulosis present. There is no ?? evidence of acute diverticulitis. ?? The small bowel is normal in caliber and course. ?? The stomach is somewhat decompressed but otherwise normal. ?? The duodenum appears normal. ?? Normal appendix visualized. ?? No rectal abnormalities. ? ABDOMINAL WALL: No significant hernia is appreciated. ? LYMPH NODES: Normal. ? VASCULAR: Unremarkable. ? PELVIC VISCERA: The uterus and adnexa are unremarkable. ? OSSEOUS STRUCTURES: No suspicious lytic or blastic bone lesion. ?? Mild right convex lumbar scoliosis. ? CT/CT abdomen pelvis wo IV con ?? IMPRESSION: ?? 1. No acute findings in the abdomen or pelvis. No urological calculus ?? or obstruction. ?? 2. Ancillary findings as discussed. ? Electronically signed by: ??Kostas Booker MD ??09/05/2024 10:58 AM EDT RP ? Dictated By: ?Kostas Booker MD ? Signed By: ?<Electronically signed by Kostas Booker MD in OV> ?09/05/24 1058 ? DD/ 1003 ? TD/TT: 09/05/24 1014 ? Fish Packer: ? Procedure Note Floyd Cantu - 09/05/[address] [address] [address] Scan Report Signed Patient: Dnio ZieglerJony#: [id number] : 7Acct:[id number] Age/Sex: 69 / FADM Date: 09/05/24 Loc: HO.ED Attending Dr: Ordering Physician: Dinorah Arellano Date of Service: 09/05/24 Procedure(s): CT abdomen pelvis wo IV con Accession Number(s): [id number] cc: Dinorah Arellano; [facility] Report Number: [id number]: Total DLP = 570.00 mGy-cm EXAMINATION: CT ABDOMEN AND PELVIS WITHOUT CONTRAST CLINICAL INFORMATION: Pelvic pain and urinary symptoms,? Stone. COMPARISON: None available. TECHNIQUE: Multidetector volumetric imaging was performed from the superior aspect of the liver through the pubic symphysis. Sagittal and coronal reformatted images were obtained on the technologist's workstation. This CT examination was performed using dose optimization techniques as appropriate, variously including the following: *Automated exposure control *Adjustment of mA and/or kV according to patient size (this includes techniques or standardized protocols for targeted exams where dose is matched to indication/reason for exam; i.e. extremities or head) *Use of iterative reconstruction technique FINDINGS: LUNG BASES: Mildly elevated right hemidiaphragm. Lung bases demonstrate mild/minor atelectasis dependently. No effusions. Mild cardiac enlargement. No pericardial effusion. Normal GE junction. LIVER, GALLBLADDER, AND BILIARY TREE: The unenhanced liver is normal in size, shape, and attenuation. No focal hepatic lesion or biliary ductal dilatation is present. The gallbladder is unremarkable with no evidence of radiopaque gallstones, gallbladder wall thickening, or obvious pericholecystic inflammatory changes. PANCREAS: Unremarkable. SPLEEN: Unremarkable. ADRENAL GLANDS: Unremarkable. KIDNEYS AND URETERS: The kidneys are normal in size, shape, and attenuation. No hydronephrosis, hydroureter, or calculi seen. No perinephric stranding. BLADDER: Unremarkable. GASTROINTESTINAL TRACT: There is diffuse moderate colonic diverticulosis present. There is no evidence of acute diverticulitis. The small bowel is normal in caliber and course. The stomach is somewhat decompressed but otherwise normal. The duodenum appears normal. Normal appendix visualized. No rectal abnormalities. ABDOMINAL WALL: No significant hernia is appreciated. LYMPH NODES: Normal. VASCULAR: Unremarkable. PELVIC VISCERA: The uterus and adnexa are unremarkable. OSSEOUS STRUCTURES: No suspicious lytic or blastic bone lesion. Mild right convex lumbar scoliosis. CT/CT abdomen pelvis wo IV con IMPRESSION: 1. No acute findings in the abdomen or pelvis. No urological calculus or obstruction. 2. Ancillary findings as discussed. Electronically signed by: Kostas Booker MD 09/05/2024 10:58 AM EDT Dictated By: Kostas Booker MD Signed By: <Electronically signed by Kostas Booker MD in OV> 09/05/24 1058 DD/ 1003 TD/TT: 09/05/24 1014 Fish Packer: [facility] External Provider IMG CT PROCEDURES Final Result * (ABNORMAL) Urinalysis, Complete, with Reflex to Culture (09/05/2024 9:17 AM EDT) Color Urine Yellow [facility] Appearance Urine Clear [facility] PH 6.0 5.0 - 9.0 [facility] Glucose Urine UA Negative Negative mg/dL [facility] Urine Blood Negative Negative [facility] Specific [place] - Urine 1.010 1.005 - 1.025 [facility] Urine Protein Negative Neg-Trace mg/dL [facility] Urine Ketones Negative Negative mg/dL [facility] Nitrite Urine Negative Negative [facility] Leukocyte Esterase Urine Trace(A) Negative [facility] RBC Urine 0-2 0 - 2 /HPF [facility] Urine WBC 0-5 0 - 5 /HPF [facility] Urine Squamous Epithelial Cell 0-2 0 - 2 /HPF [facility] Urine Bacteria None Seen None Seen [facility] Hyaline Casts, Urine 0-2 0 - 2 /LPF [facility] 09/05/2024 9:17 AM EDT 09/05/2024 9:20 AM EDT Narrative [facility] - 09/05/2024 9:38 AM EDT [id number], Clean Catch Generic External Data Provider LAB URINE ORDERAB LES Final Result [facility] [address] [place] [phone] [phone] * SARS-CoV-2 RNA, Influenza A/B, and RSV RNA, Ql NAAT (09/05/2024 9:17 AM EDT) Pathologist [facility] Influenza A PCR NEGATIVE Negative [facility] Influenza B PCR NEGATIVE Negative [facility] Resp Syncy Virus RNA Qual PCR NEGATIVE Negative [facility] SARS COV2 PCR NEGATIVE Negative [facility] Comment:All test results mus t be correlated with clinical findings.Negative results do not preclude SARS-CoV2, influenza Avirus, influenza B virus and/or RSV infectionand should not be used as the sole basis for treatment orother patient management decisions. Negative results must becombined with clinical observations, patient history, andepidemiological information.This test has not been evaluated for monitoring treatment ofinfection.This test has been authorized by the FDA under an EmergencyUse Authorization (EUA) for use by authorized laboratories.Testing performed on the [employer] GeneXpert utilizingreal-time RT-PCR.All SARS CoV2 and positive influenza A/B results arereported to [facility]. 09/05/2024 9:17 AM EDT 09/05/2024 9:20 AM EDT us Generic External Data Provider LAB MICROBIOLOGY - GENERAL ORDERABLES Final Result [facility] [address] [place] [phone] * (ABNORMAL) CBC auto differential (09/05/2024 9:17 AM EDT) Pathologist [facility] White Blood Count 8.0 4.8 - 10.8 X10*3/uL [facility] Red Blood Count 4.74 4.20 - 5.50 X10*6/uL [facility] Hemoglobin 12.2 12.0 - 16.0 g/dl [facility] Hematocrit 37.5 37.0 - 47.0 % [facility] Mean Corpuscular Volume 79.1(L) 80.0 - 98.0 fL [facility] Mean Corpuscular Hemoglobin 25.7(L) 27.0 - 33.0 pg [facility] Mean Corpuscular HGB Conc 32.5 31.0 - 35.0 g/dl [facility] Red Cell Distribution Width 13.3 11.0 - 16.0 % [facility] Platelet Count 257 160 - 400 X10*3/uL [facility] Mean Platelet Volume 9.5 9.4 - 12.3 fL [facility] Neutrophils Percent Auto 54.6 45 - 73 % [facility] Imm Gran Pct Auto 0.2 0.0 - 0.4 % [facility] Lymphocytes Percent Auto 32.4 20 - 40 % [facility] Monocytes Percent Auto 8.3 2 - 11 % [facility] Eosinophils Percent Auto 4.0 0 - 4 % [facility] Basophils Percent Auto 0.5 0 - 2 % [facility] NRBC Pct Auto 0.0 0.0 - 0.2 /100WBC [facility] Neutrophils Absolute Auto 4.4 2.0 - 8.3 x10*3/uL [facility] Imm Gran Abs Auto 0.02 0.00 - 0.03 X10*3/uL [facility] Lymphocytes Absolute Auto 2.6 1.2 - 4.9 X10*3/uL [facility] Monocytes Absolute Auto 0.7 0.1 - 1.2 X10*3/uL [facility] Eosinophils Absolute Auto 0.3 0.0 - 0.4 X10*3/uL [facility] Basophils Absolute Auto 0.0 0.0 - 0.2 X10*3/uL [facility] NRBC Abs Auto 0.000 0.0 - 0.012 X10*3/uL [facility] 09/05/2024 9:17 AM EDT 09/05/2024 9:20 AM EDT us Generic External Data Provider LAB BLOOD ORDERAB LES Final Result [facility] [address] [place] [phone] * (ABNORMAL) Comprehensive Metabolic Panel (09/05/2024 9:17 AM EDT) Sodium 141 135 - 145 mmol/L [facility] Potassium 3.7 3.3 - 5.1 mmol/L [facility] Chloride 113(H) 96 - 108 mmol/L [facility] Carbon Dioxide 20(L) 22 - 29 mmol/L [facility] Anion Gap 12 12 - 20 [facility] Urea Nitrogen (BUN) 9 9 - 16 mg/dL [facility] Creatinine, Serum 0.62 0.5 - 1.4 mg/dL [facility] Creatinine Clr Calc Pharmacy 78.8 [facility] Comment:Provided height and weight: 157.48 cm,68.6 kg.eGFR (calculated from the MDRD study equation) and eCrCl(calculated from the Cockcroft-Gault equation) are based ondifferent parameters and may not yield comparable results.If eCrCl result is absurd, please check patient'sheight/weight. Estimated Glomerular Filt Rate >60 [facility] Comment:Chronic Kidney Disea se: Estimated GFR < 60 mL/min/1.12s8Misjhh Kidney Disease: Estimated GFR < 15 mL/min/1.73m2 Glucose 122(H) 60 - 115 mg/dL [facility] Calcium 9.2 8.4 - 10.2 mg/dL [facility] Bilirubin, Total 0.4 0.0 - 1.0 mg/dL [facility] Aspartate Amino Transferase 25 5 - 31 U/L [facility] Alanine Aminotransferase 25 0 - 31 U/L [facility] Total Protein 6.7 6.5 - 8.0 g/dL [facility] Albumin Level 3.8 3.5 - 5.0 g/dL [facility] Alkaline Phosphatase 156(H) 39 - 117 U/L [facility] 09/05/2024 9:17 AM EDT 09/05/2024 9:20 AM EDT us Generic External Data Provider LAB BLOOD ORDERAB LES Final Result [facility] [address] [place] [phone] * Vitamin D, 25-Hydroxy, Total, Immunoassay (08/28/2024 10:24 AM EDT) Vitamin D 25-OH Total 39.5 >30 ng/mL [facility] Comment: Health Based Reference Values*< 20 ??ng/mL ??Ubyzzzejw86-18 ng/mL ??Insufficient> 30 ??ng/mL ??Sufficient*Sharona RICO. N Engl J Med. 2007;357:266-280There is no well-established upper level of normal vitamin Dlevels. Some laboratories use 50 ng/mL as an upper limit ofnormal. However, toxicity is patient-dependent and may occurat any level. Careful correlation with the patient'spresentation is necessary and, if there is concern forvitamin D toxicity, treatment should be consideredirrespective of the serum level.Care must be taken in interpreting Vitamin D results fromdifferent laboratories and methodologies. ??Published datademonstrated that results from patients undergoinghemodialysis may show a negative bias when tested withvarious automated 25-OH vitamin D assays when compared toLC- MS/MS.When testing samples from patients whose predominant form ofVitamin D is Vitamin D2, such as patients receiving VitaminD2 supplementation, results that are subtherapeutic shouldbe confirmed with another method such as LC-MS/MS. 08/28/2024 10:2 4 AM EDT 08/28/2024 10:24 AM EDT us Generic External Data Provider LAB BLOOD ORDERAB LES Final Result [facility] [address] [place] [phone] * Protein, Total and Protein??Electrophoresis (08/28/2024 10:24 AM EDT) Prot Elec - Total Protein 7.0 6.1 - 8.1 g/dL [facility] Prot Elec - Albumin 4.0 3.8 - 4.8 g/dL [facility] Prot Elec - Alpha1 0.3 0.2 - 0.3 g/dL [facility] Prot Elec - Alpha2 0.8 0.5 - 0.9 g/dL [facility] Prot Elec - Beta 1 0.4 0.4 - 0.6 g/dL [facility] Prot Elec - Beta 2 0.4 0.2 - 0.5 g/dL [facility] Prot Elec - Gamma 1.1 0.8 - 1.7 g/dL [facility] PES - Abn Protein Band 1 TNP [facility] PES-Abn Protein Band 2 TNP [facility] PES-Abn Protein Band 3 [facility] Prot Elec - Interpretation SEE NOTE [facility] Comment:Normal Serum Protein Electrophoresis Pattern.No abnormal protein bands (M-protein) detected.THIS TEST WAS PERFORMED AT:[facility] [place] [id number] KIM MD 08/28/2024 10:2 4 AM EDT 08/28/2024 10:24 AM EDT Generic External Data Provider LAB BLOOD ORDERAB LES Final Result Performing Organization Address [facility] Co de Phone Number [facility] [address] [place] [phone] * Phosphate (As Phosphorus) (08/28/2024 10:24 AM EDT) Phosphorus 4.0 2.7 - 4.5 mg/dL [facility] 08/28/2024 10:2 4 AM EDT 08/28/2024 10:24 AM EDT Generic External Data Provider LAB BLOOD ORDERAB LES Final Result Performing Organization Address [facility] Co de Phone Number [facility] [address] [place] [phone] * CREATININE, 24 HR GROUP (08/28/2024 5:00 AM EDT) Creatinine, 24 Hour Urine 1.1 1.0 - 2.0 G/Day [facility] Creatinine, Urine 49.03 [facility] Urine Total Volume 24 Hour 2,200 mL [facility] 08/28/2024 5:00 AM EDT 08/28/2024 11:08 AM EDT [facility] - 08/28/2024 2:37 PM EDT [id number] Generic External Data Provider LAB URINE ORDERAB LES Final Result Performing Organization Address [facility] Co de Phone Number [facility] [address] [place] [phone] * (ABNORMAL) Calcium, 24 Hour Urine W/ Creatinine (08/28/2024 5:00 AM EDT) Calcium, 24 Hour Urine 264(A) mg/24 h [facility] Comment:Reference Range 35-2 50 Low calcium diet 35-200 Calcium/Creatini ne Ratio 240 30 - 275 mg/g creat [facility] Creatinine, 24 Hour Urine 1.10 0.50 - 2.15 g/24 h [facility] Comment:THIS TEST WAS PERFOR MED AT:[employer] [address] [id number] KIM MD 08/28/2024 5:00 AM EDT 08/28/2024 11:08 AM EDT [facility] - 08/29/2024 6:08 PM EDT [id number] us Generic External Data Provider LAB URINE ORDERAB LES Final Result Performing Organization Address [facility]/ZIP Co de Phone Number [facility] [address] [place] [phone] * (ABNORMAL) Lipid Panel, Standard (07/04/2023 8:42 AM EST) Triglycerides 60 <150 mg/dL [facility] Comment:Desirable Triglyceri de: less than 150 mg/dLBorderline High Triglyceride 150-199 mg/dLHigh Triglyceride: 200-499 mg/dLVery High Triglyceride: greater than or equal to 5OO mg/dL Cholesterol 178 <200 mg/dL [facility] Comment:Desirable Cholestero l: less than 200 mg/dLBorderline High Cholesterol: 200-239 mg/dLHigh Cholesterol: greater than 239 mg/dL LDL Cholesterol Calculated 101(H) <100 mg/dL [facility] Comment:Desirable LDL: less than 100 mg/dLNear Optimal/Above Optimal LDL: 110- 129 mg/dLBorderline High LDL: 130-159 mg/dLHigh LDL: 160-189 mg/dLVery High LDL: greater than or equal to 190 mg/dL HDL Cholesterol 65 >40 mg/dL [facility] Comment:Desirable HDL: great er than 40 mg/dL Note: This HDL assay may give artificially low results in patients with liver disease. 07/04/2023 8:42 AM EST 07/04/2023 11:24 AM EST [facility] LAB BLOOD ORDERABLES Final Re sult [facility] [address] [place] [phone] * Mammography Report 1 (12/15/2021 2:40 PM EDT) Anatomical Region Laterality Modality Breast Bilateral Mammography 12/15/2021 2:4 0 PM EDT Narrative 12/16/2021 8:05 AM EDT Refer to the Notes tab for result details Legacy Procedure: Mammography Report 1 Procedure Note ProviderKarlos MD - 09/04/2022 Refer to the Notes tab for result details Legacy Procedure: Mammography Report 1 Lenora Fabian ARTIST CONSULTANT IMG BI PROCEDURES Final Result * HPV mRNA E6/E7 (03/29/2017 3:50 PM EDT) HPV mRNA E6/E7 Not Detected NOT DETECTED [facility] Comment: This test was performed using the APTIMA(R) HPV Assay ([employer] This assay detects E6/E7 viral messenger RNA (mRNA) from 14 high-risk HPV types (16,18,31,33,35,39,45,51, 52,56,58,59,66,68). For additional information please refer to: http://education.EqsQuest/faq/WVP599w7 (This link is being provided for informational/ educational purposes only.) Test Performed by [employer], [employer] [facility], [address] [place] [address] Ronak Farah M.D., Ph.D., Director of Laboratories , [place] [id number] Please note: ??Effective 02/22/2016, HPV testing will be performed using [employer]'s APTIMA test which targets mRNA. Detecting mRNA instead of DNA, as in older methods, offers significant improvements in specificity. 03/29/2017 3:50 PM EDT Shital Casas CNM HISTORICAL/NON ORDERABLE LABS Final Result [facility] [address] from Last 3 Months or Most Recently Relevant to Health Maintenance Insurance [facility] STANDARD MEDICARE Care Teams Matrix Repairer Relationship Specialty Start Date End Date Carlotta Szymanski FNP [address] [place] [address] PCP - General Family Medicine 02/08/22
--- OUTSIDE RECORDS SUMMARY | 2024-10-01 08:13 | XMS_ITS | Encounter Summary ---
Author Organization [employer] Address 75 [facility] 7t [place] [address] Care Team Providers Care Checker Name Role Phone Carlotta Szymanski HOGSHEAD COOPER Primary Care Provider [phone] Reason for Visit * Reason Comments Med Refill Encounter Details Date Type Department Care Team ([facility] Contact Info) Description 09/25/2024 Refill [facility] CHC MED & PEDS [address] [place] [address] Aurelia Blackmon MD [address] [place] [address] Pemphigus vulgaris Social History Tobacco Use Types [...] housing situation today? I have linda meryl 06/11/[address] you li [...] 9:30 AM EDT Office Visit [facility] MED & PEDS [address] [place] [address] Aurelia Blackmon MD [address] [place] [address] documented as of this encounter Visit Diagnoses Diagnosis Pemphigus vulgaris Pemphigus documented in this encounter Additional Health Concerns Assessment Noted Time PHQ-9 Depression Total Score: 0 06/19/19 25 10:13 AM EST documented as of this encounter Care Teams Checker Relationship Specialty Start Date End Date Carlotta Szymanski FNP [address] [place] [address] PCP - General Family Medicine 02/08/22 documented as of this encounter
--- OUTSIDE RECORDS SUMMARY | 2024-10-01 08:13 | XMS_ITS | Encounter Summary ---
Author Organization [employer] Address [address] [facility] [address] 7t [place] [address] Care Team Providers Care Clinical Physician Assistant Name Role Phone [facility] Primary Care Provider Reason for Visit * Reason Comments Med Refill Encounter Details Date Type Department Care Team ([facility] st Contact Info) Description 12/02/2023 Refill [facility] MEDICINE [address] [place], [place] [phone] [facility] [address] [place] [address] Social History Tobacco Use Types Packs/Day Years [...] Description 10/15/2024 9:30 AM EDT Office Visit [facility] CHC MED & PEDS [address] [place] [address] Aurelia Blackmon MD 505 [place] [address] documented as of this encounter Visit Diagnoses Not on filedocumented in this encounter Additional Health Concerns Assessment Noted Time PHQ-9 Depression Total Score: 0 05/12/20 23 1:22 PM EST documented as of this encounter Care Teams Clinical Physician Assistant Relationship Specialty Start Date End Date Carlotta Szymanski FNP [address] [place] [address] PCP - General Family Medicine 02/08/22 documented as of this encounter
--- OUTSIDE RECORDS SUMMARY | 2024-10-01 08:14 | XMS_ITS | Encounter Summary ---
Author Organization [employer] Address 75 [facility] 7t [place] [address] Care Team Providers Care System Sales Consultant Name Role Phone Carlotta Szymanski RN MATERNAL CHILD Primary Care Provider [phone] Reason for Visit * Reason Comments Med Refill Encounter Details Date Type Department Care Team ([facility] Contact Info) Description 03/23/2024 Refill [facility] CHC MED & PEDS [address] [place] [address] Aurelia Blackmon MD [address] [place] [address] Gastroesophageal reflux disease without esophagitis Social History [...] [facility] MED & PEDS [address] [place] [address] Aurelia Blackmon MD [address] [place] [address] documented as of this encounter Visit Diagnoses Diagnosis Gastroesophageal reflux disease without esophagitis Esophageal reflux documented in this encounter Additional Health Concerns Assessment Noted Time PHQ-9 Depression Total Score: 0 05/12/20 23 1:22 PM EST documented as of this encounter Care Teams System Sales Consultant Relationship Specialty Start Date End Date Carlotta Szymanski FNP [address] [place] [address] PCP - General Family Medicine 02/08/22 documented as of this encounter
--- OUTSIDE RECORDS SUMMARY | 2024-10-01 08:14 | XMS_ITS | Encounter Summary ---
Author Organization [employer] Address 75 [facility] 7 [place] [address] Care Team Providers Care Cylinder Valve Repairer Name Role Phone Carlotta Szymanski GOLF COURSE LABORER Primary Care Provider [phone] Encounter Details Date Type Department Care Team ([facility] Contact Info) Description 03/08/2023 Orders Only [facility] MED & PEDS [address] [place] [address] Aurelia Blackmon MD 505 [place] [address] Pemphigus vulgaris (Primary Dx) Social History Tobacco [...] Upcoming Encounters Date Type Department Care Team ([facility] Contact Info) Description 10/15/2024 9:30 AM EDT Office Visit [facility] MED & PEDS [address] [place] [address] Aurelia Blackmon MD [address] [place] [address] documented as of this encounter Visit Diagnoses Diagnosis Pemphigus vulgaris- Primary Pemphigus documented in this encounter Additional Health Concerns Assessment Noted Time PHQ-9 Depression Total Score: 0 11/11/19 23 1:09 PM EDT documented as of this encounter Care Teams Cylinder Valve Repairer Relationship Specialty Start Date End Date Carlotta Szymanski FNP [address] [place] [address] PCP - General Family Medicine 02/08/22 documented as of this encounter
--- OUTSIDE RECORDS SUMMARY | 2024-10-01 08:14 | XMS_ITS | Encounter Summary ---
Author Organization [facility] Address [address] [place] [address] Care Team Providers Care Grain Thresher Name Role Phone Aurelia Blackmon Primary Care Provider [phone] Encounter Details Date Type Department Care Team (Late st Contact Info) Description 10/16/2023 Transcribe Orders [facility] Physician Referral Services [address] [place] [address] Aurelia Blackmon [address] [place] [address] Pemphigus vulgaris (Primary Dx) Social History Tobacco [...] Info) Description 11/21/2024 9:00 AM EDT Infusion [facility] Building [facility] [address] [place] [address] Meredith Samayoa MD [address] [place] [address] 12/05/2024 9:00 AM EDT Infusion [facility] In[facility] [address] [place] [address] Meredith Samayoa MD [address] [place] [address] documented as of this encounter Visit Diagnoses Diagnosis Pemphigus vulgaris (HCC)- Primary Pemphigus documented in this encounter Care Teams Grain Thresher Relationship Specialty Start Date End Date Aurelia Blackmon [address] [place] [address] PCP - General Internal Medicine 10/16/23 documented as of this encounter
--- OUTSIDE RECORDS SUMMARY | 2024-10-01 08:14 | XMS_ITS | Encounter Summary ---
Author Organization [employer] Address 75 [facility] 7t [place] [address] Care Team Providers Care Event Promotions Coordinator Name Role Phone [place] [facility] Primary Care Provider [phone] Reason for Visit * Reason Onset Date Comments ER Follow-up 09/20/2022 Encounter Details Date Type Department Care Team ([facility] st Contact Info) Description 09/20/2022 Telephone [facility] MEDICINE [address] [place] [address] [facility] 230 [place], [place] [phone] ER Follow-up Social History Tobacco Use Types [...] to report ED [place] [facility] [place] [facility]. Diagnosed with pain. Patient advised will forward to team nurse for follow up. documented in this encounter Plan of Treatment Upcoming Encounters Date Type Department Care Team (Late st Contact Info) Description 10/15/2024 9:30 AM EDT Office Visit [facility] MED & PEDS [address] [place], [place] [phone] Aurelia Blackmon MD 505 [place], [place] [phone] documented as of this encounter Visit Diagnoses Not on filedocumented in this encounter Care Teams Event Promotions Coordinator Relationship Specialty Start Date End Date Carlotta Szymanski FNP [address] [place] [address] PCP - General Family Medicine 02/08/22 documented as of this encounter
--- OUTSIDE RECORDS SUMMARY | 2024-10-01 08:14 | XMS_ITS | Encounter Summary ---
Author Organization [employer] Address [address] [facility] [address] 7t [place] [address] Care Team Providers Care Press Operator Apprentice Name Role Phone Carlotta Szymanski ATTENDANT COIN OPERATED LAUNDRY Primary Care Provider [phone] Reason for Visit * Reason Comments Med Refill Encounter Details Date Type Department Care Team ([facility] st Contact Info) Description 03/23/2024 Refill [facility] CHC MED & PEDS [address] [place] [address] Tata Bullard MD 230 [place] [address] Primary hypertension Social History Tobacco Use Types [...] 10/15/2024 9:30 AM EDT Office Visit [facility] MED [facility]EDS 505 [place] [address] Aurelia Blackmon MD 505 [place] [address] documented as of this encounter Visit Diagnoses Diagnosis Primary hypertension Unspecified essential hypertension documented in this encounter Additional Health Concerns Assessment Noted Time PHQ-9 Depression Total Score: 0 05/12/20 23 1:22 PM EST documented as of this encounter Care Teams Press Operator Apprentice Relationship Specialty Start Date End Date Carlotta Szymanski FNP [address] [place] [address] PCP - General Family Medicine 02/08/22 documented as of this encounter
--- OUTSIDE RECORDS SUMMARY | 2024-10-01 08:14 | XMS_ITS | Encounter Summary ---
Author Organization [employer] Address 75 [facility] 7t [place] [address] Care Team Providers Care Mortgage Loan Officer Originator Name Role Phone Carlotta Szymanski FLORAL MERCHANDISER Primary Care Provider [phone] Encounter Details Date Type Department Care Team ([facility] st Contact Info) Description 06/08/2023 Orders Only [facility] CHC MED & PEDS [address] [place] [address] Aurelia Blackmon MD [address] [place] [address] Social History Tobacco Use Types Packs/Day Years [...] Description 10/15/2024 9:30 AM EDT Office Visit [facility] CHC MED & PEDS [address] [place] [address] Aurelia Blackmon MD [address] [place] [address] documented as of this encounter Visit Diagnoses Not on filedocumented in this encounter Additional Health Concerns Assessment Noted Time PHQ-9 Depression Total Score: 0 05/12/20 23 1:22 PM EST documented as of this encounter Care Teams Mortgage Loan Officer Originator Relationship Specialty Start Date End Date Carlotta Szymanski FNP [address] [place] [address] PCP - General Family Medicine 02/08/22 documented as of this encounter
--- OUTSIDE RECORDS SUMMARY | 2024-10-01 08:14 | XMS_ITS | Encounter Summary ---
Author Organization [employer] Address 75 [facility] 7t [place] [address] Care Team Providers Care Foster Care Therapist Name Role Phone Carlotta Szymanski BONE COOKING OPERATOR Primary Care Provider [phone] Reason for Visit * Reason Comments Med Refill Encounter Details Date Type Department Care Team ([facility] Contact Info) Description 07/03/2023 Refill [facility] CHC MED & PEDS [address] [place] [address] Aurelia Blackmon MD [address] [place] [address] Pemphigus vulgaris Social History Tobacco Use Types [...] Description 10/15/2024 9:30 AM EDT Office Visit [facility] MED & PEDS [address] [place] [address] Aurelia Blackmon MD [address] [place] [address] documented as of this encounter Visit Diagnoses Diagnosis Pemphigus vulgaris Pemphigus documented in this encounter Additional Health Concerns Assessment Noted Time PHQ-9 Depression Total Score: 0 05/12/20 23 1:22 PM EST documented as of this encounter Care Teams Foster Care Therapist Relationship Specialty Start Date End Date Carlotta Szymanski FNP [address] [place] [address] PCP - General Family Medicine 02/08/22 documented as of this encounter
--- OUTSIDE RECORDS SUMMARY | 2024-10-01 08:14 | XMS_ITS | Encounter Summary ---
Author Organization [employer] Address [address] [place] [address] Care Team Providers Care Whey Department Operator Name Role Phone Carlotta Szymanski OCCUPATIONAL THERAPY PROFESSOR Primary Care Provider [phone] Encounter Details Date Type Department Care Team ([facility] Contact Info) Description 07/29/2022 Telephone [facility] MEDICINE [address] [place] [address] Carlotta Szymanski FNP [address] [place] [address] Social History Tobacco Use Types Packs/Day Years [...] Encounters Date Type Department Care Team (Late Contact Info) Description 10/15/2024 9:30 AM EDT Office Visit [facility] CHC MED & PEDS [address] [place], [place] [phone] Aurelia Blackmon MD [address] [place], [place] [phone] documented as of this encounter Visit Diagnoses Not on filedocumented in this encounter Care Teams Whey Department Operator Relationship Specialty Start Date End Date Carlotta Szymanski FNP [address] [place] [address] PCP - General Family Medicine 02/08/22 documented as of this encounter
--- OUTSIDE RECORDS SUMMARY | 2024-10-01 08:14 | XMS_ITS | Referral Summary ---
Author Organization [facility] Address [address] [place] [address] Care Team Providers Care Threading Machine Operator Name Role Phone Aurelia Blackmon Primary Care Provider [phone] Allergies No known active allergies Medications magic [...] predniSONE (DELTASONE) 5 mg tabletIndication s:Pemphigus vulgaris (HCC) Take 20mg / 10 mg alternating every [...] mycophenolate (CELLCEPT) 500 mg tabletIndication s:Pemphigus vulgaris (HCC) Take 1 tablet (500 mg total) by [...] Info) Description 11/21/2024 9:00 AM EDT Infusion [facility] Building Infusion Clinic [address] [place] [address] Meredith Samayoa MD [address] [place] [address] 12/05/2024 9:00 AM EDT Infusion [facility] Building Infusion [facility] [address] [place] [address] Meredith Samayoa MD [address] [place] [address] Procedures * Due to [place] [email or web address] law, this organization might not be sharing negative HIV tests. Procedure Name Priority Date/Time Associated Diagnosis Comments HEPATITIS C ANTIBODY W/REFLEX TO HCV RNA, QUANTITATIVE PCR Routine 10/25/2023 3:57 PM EDT Pemphigus vulgaris High risk medication use from Last 3 Months or Most Recently Relevant to Health Maintenance Results * Due to [place] [email or web address] law, this organization might not be sharing negative HIV tests. * Hepatitis C Antibody w/Reflex to HCV RNA, Quantitative PCR (10/25/2023 3:57 PM EDT) Hepatitis C Antibody NON-REACT WILFREDO NON-REACT WILFREDO 10/26/2023 2:19 AM EDT [employer] [facility] Comment: HCV antibody was non-reactive. There is no laboratory evidence of HCV infection. In most cases, no further action is required. However, if recent HCV exposure is suspected, a test for HCV RNA (test code 60084) is suggested. For additional information please refer to http://education.CryoLife/faq/OJA86e4 (This link is being provided for informational/ educational purposes only.) Blood Structure of peripheral vein / Unknown 10/25/2023 3:57 PM EDT 10/25/2023 10:40 PM EDT Narrative [facility] - 10/28/2023 1:56 PM EDT FASTING:NO us Meredith Samayoa MD LAB BLOOD ORDERABLES Final Result [facility] [address] [facility] 3rd Floor, [place] [address], [place] [phone] [facility] [address] [place] [address] from Last 3 Months or Most Recently Relevant to Health Maintenance Insurance [facility] MEDICARE Care Teams Threading Machine Operator Relationship Specialty Start Date End Date Aurelia Blackmon [address] [place] [address] PCP - General Internal Medicine 10/16/23
--- OUTSIDE RECORDS SUMMARY | 2024-10-01 08:14 | XMS_ITS | Encounter Summary ---
Author Organization [employer] Address 75 [facility] 7t [place] [address] Care Team Providers Care Returned Case Inspector Name Role Phone Carlotta Szymanski RADIO OPERATOR GROUND Primary Care Provider [phone] Encounter Details Date Type Department Care Team ([facility] st Contact Info) Description 01/22/2024 Orders Only [facility] CHC MED & PEDS [address] [place] [address] Aurelia Blackmon MD 505 [place] [address] Other osteoporosis without current pathological fracture (Primary [...] Office Visit [facility] MED & PEDS [address] [place] [address] Aurelia Blackmon MD [address] [place] [address] documented as of this encounter Visit Diagnoses Diagnosis Other osteoporosis without current pathological fracture- Primary documented in this encounter Additional Health Concerns Assessment Noted Time PHQ-9 Depression Total Score: 0 05/12/20 23 1:22 PM EST documented as of this encounter Care Teams Returned Case Inspector Relationship Specialty Start Date End Date Carlotta Szymanski FNP [address] [place] [address] PCP - General Family Medicine 02/08/22 documented as of this encounter
--- OUTSIDE RECORDS SUMMARY | 2024-10-01 08:14 | XMS_ITS | Encounter Summary ---
Author Organization [facility] [employer] [facility] [employer] Address 75 [facility] 7t [place] [address] Care Team Providers Care Survey Interviewer Name Role Phone Carlotta Szymanski SUPPLY CHAIN VICE PRESIDENT Primary Care Provider [phone] Reason for Visit * Reason Comments Med Refill Encounter Details Date Type Department Care Team ([facility] Contact Info) Description 07/03/2023 Refill [facility] CHC MED & PEDS [address] [place] [address] Aurelia Blackmon MD [address] [place] [address] Pemphigus vulgaris Social History Tobacco Use Types [...] Description 10/15/2024 9:30 AM EDT Office Visit [facility] MED & PEDS [address] [place] [address] Aurelia Blackmon MD [address] [place] [address] documented as of this encounter Visit Diagnoses Diagnosis Pemphigus vulgaris Pemphigus documented in this encounter Additional Health Concerns Assessment Noted Time PHQ-9 Depression Total Score: 0 05/12/20 23 1:22 PM EST documented as of this encounter Care Teams Survey Interviewer Relationship Specialty Start Date End Date Carlotta Szymanski FNP [address] [place] [address] PCP - General Family Medicine 02/08/22 documented as of this encounter
--- OUTSIDE RECORDS SUMMARY | 2024-10-01 08:14 | XMS_ITS | Encounter Summary ---
Author Organization [employer] Address 75 [facility] 7t [place] [address] Care Team Providers Care White Sugar Supervisor Name Role Phone Carlotta Szymanski TELEPHONE MAINTENANCE MECHANIC Primary Care Provider [phone] Encounter Details Date Type Department Care Team ([facility] st Contact Info) Description 07/26/2023 Orders Only [facility] CHC MED & PEDS [address] [place] [address] Aurelia Blackmon MD [address] [place] [address] Pemphigus vulgaris (Primary Dx) Social History Tobacco [...] Description 10/15/2024 9:30 AM EDT Office Visit [facility] CHC MED & PEDS [address] [place] [address] Aurelia Blackmon MD [address] [place] [address] documented as of this encounter Visit Diagnoses Diagnosis Pemphigus vulgaris- Primary Pemphigus documented in this encounter Additional Health Concerns Assessment Noted Time PHQ-9 Depression Total Score: 0 05/12/20 23 1:22 PM EST documented as of this encounter Care Teams White Sugar Supervisor Relationship Specialty Start Date End Date Carlotta Szymanski FNP [address] [place] [address] PCP - General Family Medicine 02/08/22 documented as of this encounter
--- OUTSIDE RECORDS SUMMARY | 2024-10-01 08:15 | XMS_ITS | Clinical Summary ---
Author Organization [facility] Address [address] [place] [address] Care Team Providers Care Senior Operations Analyst Name Role Phone Aurelia Blackmon Primary Care Provider + [phone] Allergies No known active allergies Medications magic [...] Info) Description 11/21/2024 9:00 AM EDT Infusion [facility] [address] [place] [address] Meredith Samayoa MD [address] [place] [address] 12/05/2024 9:00 AM EDT Infusion [facility] [address] [place] [address] Meredith Samayoa MD [address] [place] [address] Health Maintenance Due Date Last Done Comments Cologuard 1955 Colon Cancer Screening 1955 Colonoscopy 1955 FOBT / Fit Test 1956 Sigmoidoscopy 1956 Medicare AWV 1957 Zoster Vaccines (1 of 2) 08/24/1975 RSV Vaccine (60+ years old a nd patients) (1 - Risk 60-74 years 1-dose series) 2016 COVID-19 Vaccine (3 - Modern a risk series) 12/07/2020 11/09/2020, 10/12/2020 Mammogram 12/16/2023 12/15/2021 Alcohol/Substance Use Screening 06/12/2024 Depression Screening and Follow-Up 06/12/2024 Health Care Proxy Review 06/12/2024 Social Drivers of Health Annual Screening 06/12/2024 Influenza Vaccine (Season Ended) 2025 05/12/2023, 03/29/2017 DTaP,Tdap,and Td Vaccines (2 - Td or Tdap) 02/11/2031 02/11/2021 Pneumococcal Vaccine: 50+ Years Completed 11/10/2022 Hepatitis C Screening Completed 10/25/2023 Osteoporosis Screening Completed 12/19/2023 Hepatitis B Vaccines Aged Out No long er eligible based on patient's age to complete this topic Procedures * Due to [place] [employer] Medical law, this organization might not be sharing negative HIV tests. Procedure Name Priority Date/Time Associated Diagnosis Comments HEPATITIS C ANTIBODY W/REFLEX TO HCV RNA, QUANTITATIVE PCR Routine 10/25/2023 3:57 PM EDT Pemphigus vulgaris High risk medication use from Last 3 Months or Most Recently Relevant to Health Maintenance Results * Due to [place] [employer] Medical law, this organization might not be sharing negative HIV tests. * Hepatitis C Antibody w/Reflex to HCV RNA, Quantitative PCR (10/25/2023 3:57 PM EDT) Hepatitis C Antibody NON-REACT WILFREDO NON-REACT WILFREDO 10/26/2023 2:19 AM EDT [facility] Comment: HCV antibody was non-reactive. There is no laboratory evidence of HCV infection. In most cases, no further action is required. However, if recent HCV exposure is suspected, a test for HCV RNA (test code 91201) is suggested. For additional information please refer to http://education.DotGT/faq/CPH65k1 (This link is being provided for informational/ educational purposes only.) Blood Structure of peripheral vein / Unknown 10/25/2023 3:57 PM EDT 10/25/2023 10:40 PM EDT Narrative [facility] - 10/28/2023 1:56 PM EDT FASTING:NO Meredith Samayoa MD LAB BLOOD ORDERABLES Final Result [facility] [address] [facility] 3rd Floor, [place] [address], [facility] [address] [place] [address] from Last 3 Months or Most Recently Relevant to Health Maintenance Insurance [facility] MEDICARE Care Teams Senior Operations Analyst Relationship Specialty Start Date End Date Aurelia Blackmon [address] [place] [address] [phone] PCP - General Internal Medicine 10/16/23
--- OUTSIDE RECORDS SUMMARY | 2024-10-01 08:15 | XMS_ITS | Encounter Summary ---
Author Organization [employer] Address 75 [facility] 7 [place] [address] Care Team Providers Care Designer/Writer Name Role Phone Carlotta Szymanski PAINTER BARREL Primary Care Provider [phone] Reason for Visit * Reason Comments Med Refill Encounter Details Date Type Department Care Team ([facility] Contact Info) Description 04/03/2023 Refill [facility] CH[facility] MED & PEDS [address] [place] [address] Aurelia Blackmon MD 505 [place] [address] Social History Tobacco Use Types Packs/Day Years [...] with others, in a hotel, in a penitentiary, living outside on the street, on a [...] Description 10/15/2024 9:30 AM EDT Office Visit [facility] CH[facility] MED & PEDS [address] [place] [address] Aurelia Blackmon MD [address] [place] [address] documented as of this encounter Visit Diagnoses Not on filedocumented in this encounter Additional Health Concerns Assessment Noted Time PHQ-9 Depression Total Score: 0 11/11/19 23 1:09 PM EDT documented as of this encounter Care Teams Designer/Writer Relationship Specialty Start Date End Date Carlotta Szymanski FNP [address] [place] [address] PCP - General Family Medicine 02/08/22 documented as of this encounter
--- OUTSIDE RECORDS SUMMARY | 2024-10-01 08:15 | XMS_ITS | Encounter Summary ---
Author Organization [employer] Address 75 [facility] 7t [place] [address] Care Team Providers Care Solderer Electronic Name Role Phone [place] [facility] Primary Care Provider [phone] Reason for Visit * Reason Onset Date Comments Reschedule 05/01/2023 Encounter Details Date Type Department Care Team ([facility] st Contact Info) Description 05/01/2023 Telephone [facility] MEDICINE [address] [place], [place] [phone] [place] [facility] [address] [place] [address] Reschedule Social History Tobacco Use Types Packs/Day [...] 04/25 derm appointment. Please contact pt at [phone] (Hungarian) documented in this encounter Plan of Treatment Upcoming Encounters Date Type Department Care Team (Late st Contact Info) Description 10/15/2024 9:30 AM EDT Office Visit [facility] CHC MED & PEDS [address] [place] [address] Aurelia Blackmon MD 505 [place] [address] documented as of this encounter Visit Diagnoses Not on filedocumented in this encounter Additional Health Concerns Assessment Noted Time PHQ-9 Depression Total Score: 0 11/11/19 1:09 PM EDT documented as of this encounter Care Teams Solderer Electronic Relationship Specialty Start Date End Date Carlotta Szymanski FNP [address] [place] [address] PCP - General Family Medicine 02/08/22 documented as of this encounter
--- OUTSIDE RECORDS SUMMARY | 2024-10-01 08:15 | XMS_ITS | Encounter Summary ---
Author Organization [employer] Address 75 [facility] 7t [place] [address] Care Team Providers Care Soap Slabber Name Role Phone [facility] Primary Care Provider [phone] Reason for Visit * Reason Onset Date Comments Medication Question 05/16/2023 Encounter Details Date Type Department Care Team ([facility] st Contact Info) Description 05/16/2023 Telephone [facility] MEDICINE [address] [place] [address] [facility] 230 [place], [place] [phone] Medication Question Social History Tobacco Use Types [...] Description 10/15/2024 9:30 AM EDT Office Visit [facility] MED & PEDS [address] [place] [address] Aurelia Blackmon MD 505 [place] [address] documented as of this encounter Visit Diagnoses Not on filedocumented in this encounter Additional Health Concerns Assessment Noted Time PHQ-9 Depression Total Score: 0 05/12/20 23 1:22 PM EST documented as of this encounter Care Teams Soap Slabber Relationship Specialty Start Date End Date Carlotta Szymanski FNP [address] [place] [address] PCP - General Family Medicine 02/08/22 documented as of this encounter
== END 2024-10-01 08:32 | disposition home or self-care (01) ==
LOC: HO.ENCR 08:03
PROVIDERS: PCP Internal Medicine; Visit Provider Internal Medicine Endocrinology, Diabetes & Metabolism
DX: M81.0 Age-related osteoporosis without current pathological fracture (principal)
CPT/HCPCS: 99213

== ENCOUNTER → 2024-10-01 08:03 | Outpatient (BNVA) | payer MEDICARE, MEDICAID, SELFPAY | PROVIDERS: PCP Internal Medicine; Visit Provider Internal Medicine Endocrinology, Diabetes & Metabolism | DX: M81.0 Age-related osteoporosis without current pathological fracture (principal); Z78.0 Asymptomatic menopausal state | CPT/HCPCS: 99212 ==

== ENCOUNTER 2024-10-09 15:10 | Outpatient (AMB) | payer MEDICARE, MEDICAID, SELFPAY ==
--- NOTE | 2024-10-09 15:32 | AM.OFFVISNUR ---
Intake Visit Reasons: Evenity #1 Allergies No Known Allergies [No Known Allergies*] Allergy (Verified 10/01/24 08:11) Nursing Note Foundry Worker declined, daughter Sarah, interpreted visit. Consent form signed by patient. Pt advised to continue taking Vit D supplementation throughout evenity injections. Patient advised to alert her dentist she is on this medication. Patient aware to watch for site reactions at injection site such as redness, warmth or swelling. Pt aware to call the office if any of these were to occur or other side effects such as headache or joint pain. Pt observed for 15 minutes following injection without any adverse reactions. Patient scheduled for next appointment. Office Meds romosozumab-aqqg 210 mg/2.34 mL(105 mg/1.17 mL x2)subcutaneous syringe Performing Provider: Tonny Weber MD Performing Location: [facility] [place] Endocrinology Administered by: Jess Pickard RN on 10/09/24 15:15 Dose Route Admin Location Dispensed Lot Number Expiration Date KSC Pasteuriser Operator 210 mg subcut bilateral upper arms 2.34 mL [id number] 10/09/26 28305-223-05 [employer]GEN Assessment & Plan Assessment & Plan Orders: Orders AMB Romosozumab Injection Patient Supplied Today M81.0 - Age-related osteoporosis without current pathological fracture Medications: New romosozumab-aqqg 210 mg (2.34 mL) subcut ONCE 2.34 mL 0RF M81.0 - Age-related osteoporosis without current pathological fracture Coding
--- OUTSIDE RECORDS SUMMARY | 2024-10-09 16:14 | XMS_ITS | Clinical Summary ---
Author Organization [facility] ity Address [address] [place] [address] Care Team Providers Care Paint Mixer Machine Name Role Phone Unavailable Primary Care Provider [...]
--- OUTSIDE RECORDS SUMMARY | 2024-10-09 16:14 | XMS_ITS | Encounter Summary ---
Author Organization [employer] Address 75 [facility] 7t [place] [address] Care Team Providers Care Aircraft Pneudraulics Repairer Name Role Phone [place] [facility] Primary Care Provider [phone] Reason for Visit * Reason Onset Date Comments ER Follow-up 09/20/2022 Encounter Details Date Type Department Care Team (Late st Contact Info) Description 09/20/2022 Telephone [facility] MEDICINE 230 [place] [address] [facility] 230 [place], [place] [phone] ER Follow-up Social History Tobacco Use Types [...] to report ED visit on 09/20/[address] [facility]. Diagnosed with pain. Patient advised will forward to team nurse for follow up. documented in this encounter Plan of Treatment Upcoming Encounters Date Type Department Care Team (Late st Contact Info) Description 10/15/2024 9:30 AM EDT Office Visit [facility] MED & PEDS [address] [place], [place] [phone] Aurelia Blackmon MD 505 [place], [place] [phone] documented as of this encounter Visit Diagnoses Not on filedocumented in this encounter Care Teams Aircraft Pneudraulics Repairer Relationship Specialty Start Date End Date Carlotta Szymanski FNP [address] [place] [address] PCP - General Family Medicine 02/08/22 documented as of this encounter
--- OUTSIDE RECORDS SUMMARY | 2024-10-09 16:14 | XMS_ITS | Encounter Summary ---
Author Organization [employer] Address [address] [place] [address] Care Team Providers Care Arc Welder Name Role Phone Carlotta Szymanski MANAGER QUALITY COMPLIANCE Primary Care Provider Encounter Details Date Type Department Care Team ([facility] Contact Info) Description 07/29/2022 Telephone [facility] MEDICINE 230 [place], [place] [phone] Carlotta Szymanski FNP [address] [place] [address] Social History Tobacco Use Types Packs/Day Years [...] Description 10/15/2024 9:30 AM EDT Office Visit [facility] CHC MED & PEDS [address] [place], [place] [phone] Aurelia Blackmon MD 505 [place], [place] [phone] documented as of this encounter Visit Diagnoses Not on filedocumented in this encounter Care Teams Arc Welder Relationship Specialty Start Date End Date Carlotta Szymanski FNP [address] [place] [address] PCP - General Family Medicine 02/08/22 documented as of this encounter
--- OUTSIDE RECORDS SUMMARY | 2024-10-09 16:14 | XMS_ITS | Encounter Summary ---
Author Organization [facility] Address [address] [place] [address] Care Team Providers Care Superintendent Division Name Role Phone Aurelia Blackmon Primary Care Provider [phone] Encounter Details Date Type Department Care Team (Late st Contact Info) Description 10/16/2023 Transcribe Orders [facility]erral [facility] [address] [place] [address] Aurelia Blackmon [address] [place] [address] Pemphigus vulgaris (Primary Dx) Social History Tobacco [...] Care Team (Late st Contact Info) Description 11/12/2024 10:00 AM EDT Office Visit [facility] 4th Floor [address] [facility], [place] [phone] Flash Drier Operator: Meredith Gonzalez MD [address] [place] [address] 11/21/2024 9:00 AM EDT Infusion [facility] Infusion Clinic [address] [place] [address] Meredith Samayoa MD [address] [place] [address] 12/05/2024 9:00 AM EDT Infusion [facility] Infusion Clinic [address] [place] [address] Meredith Samayoa MD [address] [place] [address] documented as of this encounter Visit Diagnoses Diagnosis Pemphigus vulgaris (HCC)- Primary Pemphigus documented in this encounter Care Teams Superintendent Division Relationship Specialty Start Date End Date Aurelia Blackmon [address] [place] [address] PCP - General Internal Medicine 10/16/23 documented as of this encounter
--- OUTSIDE RECORDS SUMMARY | 2024-10-09 16:14 | XMS_ITS | Encounter Summary ---
Author Organization [employer] Address 75 [facility] 7t [place] [address] Care Team Providers Care Photo Finish Photographer Name Role Phone Carlotta Szymanski ANY COMMODITY BUYER Primary Care Provider [phone] Reason for Visit * Reason Comments Med Refill Encounter Details Date Type Department Care Team ([facility] Contact Info) Description 07/03/2023 Refill [facility] CHC MED & PEDS [address] [place] [address] Aurelia Blackmon MD [address] [place] [address] Pemphigus vulgaris Social History Tobacco Use Types [...] 9:30 AM EDT Office Visit [facility] MED & PEDS [address] [place] [address] Aurelia Blackmon MD [address] [place] [address] documented as of this encounter Visit Diagnoses Diagnosis Pemphigus vulgaris Pemphigus documented in this encounter Additional Health Concerns Assessment Noted Time PHQ-9 Depression Total Score: 0 05/12/20 23 1:22 PM EST documented as of this encounter Care Teams Photo Finish Photographer Relationship Specialty Start Date End Date Carlotta Szymanski FNP [address] [place] [address] PCP - General Family Medicine 02/08/22 documented as of this encounter
--- OUTSIDE RECORDS SUMMARY | 2024-10-09 16:14 | XMS_ITS | Clinical Summary ---
Author Organization [facility] Address [address] [place] [address] Care Team Providers Care Cosmetic Surgeon Name Role Phone Aurelia Blackmon Primary Care Provider [phone] Allergies No known active allergies Medications magic [...] Description 11/12/2024 10:00 AM EDT Office Visit [facility] Dermatology Clinic 4th [address] [place] [address], [place] [address] Lead Cook: Meredith Gonzalez MD [address] [place] [address] 11/21/2024 9:00 AM EDT Infusion [facility] Building Infusion Clinic [address] [place] [address] Meredith Samayoa MD 281 [place] [address] 12/05/2024 9:00 AM EDT Infusion [facility] Building Infusion Clinic [address] [place] [address] Meredith Samayoa MD [address] [place] [address] Health Maintenance Due Date Last Done Comments [...] complete this topic Procedures * Due to [place] state law, this organization might not be sharing negative HIV tests. Procedure Name Priority Date/Time Associated Diagnosis Comments HEPATITIS C ANTIBODY W/REFLEX TO HCV RNA, QUANTITATIVE PCR Routine 10/25/2023 3:57 PM EDT Pemphigus vulgaris High risk medication use from Last 3 Months or Most Recently Relevant to Health Maintenance Results * Due to [place] state law, this organization might not be sharing negative HIV tests. * Hepatitis C Antibody w/Reflex to HCV RNA, Quantitative PCR (10/25/2023 3:57 PM EDT) Hepatitis C Antibody NON-REACT WILFREDO NON-REACT WILFREDO 10/26/2023 2:19 AM EDT [facility] Comment: HCV antibody was non-reactive. There is no laboratory evidence of HCV infection. In most cases, no further action is required. However, if recent HCV exposure is suspected, a test for HCV RNA (test code 59701) is suggested. For additional information please refer to http://education.The Gluten Free Gourmet/faq/CGE25m3 (This link is being provided for informational/ educational purposes only.) Blood Structure of peripheral vein / Unknown 10/25/2023 3:57 PM EDT 10/25/2023 10:40 PM EDT Narrative [facility] - 10/28/2023 1:56 PM EDT FASTING:NO Meredith Samayoa MD LAB BLOOD ORDERABLES Final Result [facility] [address] [facility] 3rd Floor, [place] [address], [facility] 200 [place] [address] from Last 3 Months or Most Recently Relevant to Health Maintenance Insurance [facility] MEDICARE Care Teams Cosmetic Surgeon Relationship Specialty Start Date End Date Aurelia Blackmon [address] [place] [address] PCP - General Internal Medicine 10/16/23
--- OUTSIDE RECORDS SUMMARY | 2024-10-09 16:14 | XMS_ITS | Encounter Summary ---
Author Organization [employer] Address [address] [facility] [address] 7t [place] [address] Care Team Providers Care Ticket Clerk Name Role Phone [facility] Primary Care Provider [phone] Reason for Visit * Reason Comments Med Refill Encounter Details Date Type Department Care Team ([facility] st Contact Info) Description 12/02/2023 Refill [facility] MEDICINE 230 [place], [place] [phone] [facility] 230 [place] [address] Social History Tobacco Use Types Packs/Day Years [...] Description 10/15/2024 9:30 AM EDT Office Visit [facility] CHC MED & PEDS 505 [place] [address] Aurelia Blackmon MD 505 [place] [address] documented as of this encounter Visit Diagnoses Not on filedocumented in this encounter Additional Health Concerns Assessment Noted Time PHQ-9 Depression Total Score: 0 05/12/20 23 1:22 PM EST documented as of this encounter Care Teams Ticket Clerk Relationship Specialty Start Date End Date Carlotta Szymanski FNP [address] [place] [address] PCP - General Family Medicine 02/08/22 documented as of this encounter
--- OUTSIDE RECORDS SUMMARY | 2024-10-09 16:14 | XMS_ITS | Encounter Summary ---
Author Organization [employer] Address 75 [facility] 7t [place] [address] Care Team Providers Care Hand Upper And Bottom Lacer Name Role Phone Carlotta Szymanski GOLD LEAF PRINTER Primary Care Provider [phone] Encounter Details Date Type Department Care Team ([facility] st Contact Info) Description 07/26/2023 Orders Only [facility] CHC MED & PEDS 505 [place] [address] Aurelia Blackmon MD [address] [place] [address] Pemphigus vulgaris (Primary Dx) Social History Tobacco [...] 9:30 AM EDT Office Visit [facility] CHC MED & PEDS 505 [place] [address] Aurelia Blackmon MD [address] [place] [address] documented as of this encounter Visit Diagnoses Diagnosis Pemphigus vulgaris- Primary Pemphigus documented in this encounter Additional Health Concerns Assessment Noted Time PHQ-9 Depression Total Score: 0 05/12/20 23 1:22 PM EST documented as of this encounter Care Teams Hand Upper And Bottom Lacer Relationship Specialty Start Date End Date Carlotta Szymanski FNP [address] [place] [address] PCP - General Family Medicine 02/08/22 documented as of this encounter
--- OUTSIDE RECORDS SUMMARY | 2024-10-09 16:14 | XMS_ITS | Encounter Summary ---
Author Organization [employer] Address [address] [facility] [address] 7t [place] [address] Care Team Providers Care Fifth Grade Teacher Name Role Phone [place] [facility] Primary Care Provider [phone] Reason for Visit * Reason Onset Date Comments Medication Question 05/16/2023 Encounter Details Date Type Department Care Team ([facility] st Contact Info) Description 05/16/2023 Telephone [facility] MEDICINE 230 [place] [address] [place] [facility] 230 [place], [place] [phone] Medication Question Social History Tobacco Use Types [...] [facility] MED & PEDS [address] [place] [address] Aurelia Blackmon MD 505 [facility] [place] [address] documented as of this encounter Visit Diagnoses Not on filedocumented in this encounter Additional Health Concerns Assessment Noted Time PHQ-9 Depression Total Score: 0 05/12/20 23 1:22 PM EST documented as of this encounter Care Teams Fifth Grade Teacher Relationship Specialty Start Date End Date Carlotta Szymanski FNP [address] [place] [address] PCP - General Family Medicine 02/08/22 documented as of this encounter
--- OUTSIDE RECORDS SUMMARY | 2024-10-09 16:14 | XMS_ITS | Encounter Summary ---
Author Organization [employer] Address 75 [facility] 7 [place] [address] Care Team Providers Care Willow Machine Operator Name Role Phone Carlotta Szymanski CORRECTIONAL OFFICER Primary Care Provider Reason for Visit * Reason Onset Date Comments Med Refill 05/07/2024 Encounter Details Date Type Department Care Team ([facility] st Contact Info) Description 05/07/2024 Refill [facility] CHC MED & PEDS [address] [place] [address] Aurelia Blackmon MD 505 [place] [address] Pemphigus vulgaris; Dry skin Social History Tobacco [...] 9:30 AM EDT Office Visit [facility] CHC MED & PEDS [address] [place] [address] Aurelia Blackmon MD 505 [place] [address] documented as of this encounter Visit Diagnoses Diagnosis Pemphigus vulgaris Pemphigus Dry skin Other symptoms involving skin and integumentary tissues documented in this encounter Additional Health Concerns Assessment Noted Time PHQ-9 Depression Total Score: 0 05/12/20 23 1:22 PM EST documented as of this encounter Care Teams Willow Machine Operator Relationship Specialty Start Date End Date Carlotta Szymanski FNP [address] [place] [address] PCP - General Family Medicine 02/08/22 documented as of this encounter
--- OUTSIDE RECORDS SUMMARY | 2024-10-09 16:14 | XMS_ITS | Encounter Summary ---
Author Organization [employer] Address 75 [facility] 7t [place] [address] Care Team Providers Care Line Palletizer Name Role Phone Carlotta Szymanski FRUIT ROOM HAND Primary Care Provider [phone] Encounter Details Date Type Department Care Team ([facility] st Contact Info) Description 06/08/2023 Orders Only [facility] CHC MED & PEDS [address] [place] [address] Aurelia Blackmon MD 505 [place] [address] Social History Tobacco Use Types Packs/Day Years [...] your housing situation today? I have linda shteh 05/12/[address] you li [...] Description 10/15/2024 9:30 AM EDT Office Visit [facility] CHC MED & PEDS [address] [place] [address] Aurelia Blackmon MD 505 [place] [address] documented as of this encounter Visit Diagnoses Not on filedocumented in this encounter Additional Health Concerns Assessment Noted Time PHQ-9 Depression Total Score: 0 05/12/20 23 1:22 PM EST documented as of this encounter Care Teams Line Palletizer Relationship Specialty Start Date End Date Carlotta Szymanski FNP [address] [place] [address] PCP - General Family Medicine 02/08/22 documented as of this encounter
--- OUTSIDE RECORDS SUMMARY | 2024-10-09 16:14 | XMS_ITS | Clinical Summary ---
Author Organization [employer] Address [address] [facility] 7t [place] [address] Care Team Providers Care Fine Unhairer Name Role Phone Carlotta Szymanski DEVELOPMENTAL SERVICES WORKER Primary Care Provider [phone] Allergies No known active allergies Medications cetirizine [...] crush or chew. 30 capsule 024 Active ROU-Hrgk-CcFsio- MgHydr-Simeth (First-Mouthwash BLM) suspensionIndica tions:Pemphigus vulgaris USE [...] Mammo: December 2021 Pap: December 2021 at [facility] C-scope: Colonoscopy and endoscopy at [facility] 2022 BMD: 2021, need records Mixed hyperlipidemia [...] high in fiber. Review available resources on https://www.heart.org/en/health-topics/cholesterol/bjchbdydeie-qordb-asi-resourc es to learn more about lifestyle management. [...] Type Department Care Team Description 09/25/2024 Refill [facility] [address] [place] [address] Aurelia Blackmon MD Pemphigus vulgaris 09/05/2024 Orders Only GENERIC EXTERNAL DATA DEPARTMENT Provider, Generic External Data 09/05/2024 Telephone [facility] [address] [facility] [place] [address] [place] Nurse Triage 08/28/2024 Orders Only GENERIC EXTERNAL DATA DEPARTMENT Provider, Generic External Data 07/22/2024 Refill [facility] [address] [place] [address] [place] FNP Primary hypothyroidism from Last 3 Months Immunizations Name Administration [...] housing situation today? I have lindaiwona sheth 06/11/[address] you [...] 9:30 AM EDT Office Visit [facility] [address] [place] [address] Aurelia Blackmon MD [address] [place] [address] Health Maintenance Due Date Last Done Comments [...] EDT CREATININE, 24 HR GROUP Routine 08/29/19 5:00 AM EDT LIPID PANEL, STANDARD Routine [...] EDT Narrative 09/05/2024 11:00 AM EDT ? [facility] ?[address] ?[place] [address] ? CT Scan Report ? Signed ? Patient: Wilner Delgado,Ruthie ?MR#: ?? [id number] ? : 1955 ?Acct:[id number] ? Age/Sex: 69 / F ?ADM Date: 03/27/25 ? Loc: HO.ED ? Attending Dr: ? Ordering Physician: Dinorah Arellano ?? Date of Service: 09/05/24 ?? Procedure(s): CT abdomen pelvis wo IV con ?? Accession Number(s): [id number] ? cc: Dinorah Arellano; [facility] DEVELOPMENTAL SERVICES WORKER ? Report Number: ?? [id number]: Total DLP = ??570.00 mGy-cm ?? EXAMINATION: [...] DD/ 1003 ? TD/TT: 09/05/24 1014 ? Cushion Sewer: ? Procedure Note Pepe, Floyd - 09/05/[address] [place] [address] [address] Scan Report Signed Patient: Susy Ziegler#: [id number] : 7Acct:[id number] Age/Sex: 69 / FADM Date: 09/05/24 Loc: HO.ED Attending Dr: Ordering Physician: Dinorah Arellano Date of Service: 09/05/24 Procedure(s): CT abdomen pelvis wo IV con Accession Number(s): [id number] cc: Dinorah Arellano; [facility] Report Number: [id number]: Total DLP = 570.00 mGy-cm EXAMINATION: CT [...] 09/05/24 1058 DD/ 1003 TD/TT: 09/05/24 1014 Cushion Sewer: [facility] External Provider IMG CT PROCEDURES Final Result * (ABNORMAL) Urinalysis, Complete, with Reflex to Culture (09/05/2024 9:17 AM EDT) Color Urine Yellow [facility] Appearance Urine Clear [facility] PH 6.0 5.0 - 9.0 [facility] Glucose Urine UA Negative Negative mg/dL [facility] Urine Blood Negative Negative [facility] Specific [place] - Urine 1.010 1.005 - 1.025 [facility] Urine Protein Negative Neg-Trace mg/dL [facility] Urine Ketones Negative Negative mg/dL [facility] Nitrite Urine Negative Negative [facility] Leukocyte Esterase Urine Trace(A) Negative [facility] RBC Urine 0-2 0 - 2 /HPF [facility] Urine WBC 0-5 0 - 5 /HPF [facility] Urine Squamous Epithelial Cell 0-2 0 - 2 /HPF [facility] Urine Bacteria None Seen None Seen [facility] Hyaline Casts, Urine 0-2 0 - 2 /LPF [facility] 09/05/2024 9:17 AM EDT 09/05/2024 9:20 AM EDT Narrative [facility] - 09/05/2024 9:38 AM EDT [id number], Clean Catch us Generic External Data Provider LAB URINE ORDERAB LES Final Result [facility] [address] [place] [phone] * SARS-CoV-2 RNA, Influenza A/B, and RSV RNA, Ql NAAT (09/05/2024 9:17 AM EDT) Influenza A PCR NEGATIVE Negative [facility] Influenza B PCR NEGATIVE Negative [facility] Resp Syncy Virus RNA Qual PCR NEGATIVE Negative [facility] SARS COV2 PCR NEGATIVE Negative [facility] Comment:All test results mus t be [...] use by authorized laboratories.Testing performed on the [employer] GeneXpert utilizingreal-time RT-PCR.All SARS CoV2 and positive influenza A/B results arereported to [facility]. 09/05/2024 9:17 AM EDT 09/05/2024 9:20 AM EDT us Generic External Data Provider LAB MICROBIOLOGY - GENERAL ORDERABLES Final Result [facility] [address] [place] [phone] * (ABNORMAL) CBC auto differential (09/05/2024 9:17 AM EDT) White Blood Count 8.0 4.8 - 10.8 X10*3/uL [facility] Red Blood Count 4.74 4.20 - 5.50 X10*6/uL [facility] Hemoglobin 12.2 12.0 - 16.0 g/dl [facility] Hematocrit 37.5 37.0 - 47.0 % [facility] Mean Corpuscular Volume 79.1(L) 80.0 - 98.0 fL [facility] Mean Corpuscular Hemoglobin 25.7(L) 27.0 - 33.0 pg [facility] Mean Corpuscular HGB Conc 32.5 31.0 - 35.0 g/dl [facility] Red Cell Distribution Width 13.3 11.0 - 16.0 % [facility] Platelet Count 257 160 - 400 X10*3/uL [facility] Mean Platelet Volume 9.5 9.4 - 12.3 fL [facility] Neutrophils Percent Auto 54.6 45 - 73 % [facility] Imm Gran Pct Auto 0.2 0.0 - 0.4 % [facility] Lymphocytes Percent Auto 32.4 20 - 40 % [facility] Monocytes Percent Auto 8.3 2 - 11 % [facility] Eosinophils Percent Auto 4.0 0 - 4 % [facility] Basophils Percent Auto 0.5 0 - 2 % [facility] NRBC Pct Auto 0.0 0.0 - 0.2 /100WBC [facility] Neutrophils Absolute Auto 4.4 2.0 - 8.3 x10*3/uL [facility] Imm Gran Abs Auto 0.02 0.00 - 0.03 X10*3/uL [facility] Lymphocytes Absolute Auto 2.6 1.2 - 4.9 X10*3/uL [facility] Monocytes Absolute Auto 0.7 0.1 - 1.2 X10*3/uL [facility] Eosinophils Absolute Auto 0.3 0.0 - 0.4 X10*3/uL [facility] Basophils Absolute Auto 0.0 0.0 - 0.2 X10*3/uL [facility] NRBC Abs Auto 0.000 0.0 - 0.012 X10*3/uL [facility] 09/05/2024 9:17 AM EDT 09/05/2024 9:20 AM EDT us Generic External Data Provider LAB BLOOD ORDERAB LES Final Result [facility] [address] [place] [phone] [phone] * (ABNORMAL) Comprehensive Metabolic Panel (09/05/2024 9:17 AM EDT) Sodium 141 135 - 145 mmol/L [facility] Potassium 3.7 3.3 - 5.1 mmol/L [facility] Chloride 113(H) 96 - 108 mmol/L [facility] Carbon Dioxide 20(L) 22 - 29 mmol/L [facility] Anion Gap 12 12 - 20 [facility] Urea Nitrogen (BUN) 9 9 - 16 mg/dL [facility] Creatinine, Serum 0.62 0.5 - 1.4 mg/dL [facility] Creatinine Clr Calc Pharmacy 78.8 [facility] Comment:Provided height and weight: 157.48 cm,68.6 kg.eGFR (calculated from the MDRD study equation) and eCrCl(calculated from the Cockcroft-Gault equation) are based ondifferent parameters and may not yield comparable results.If eCrCl result is absurd, please check patient'sheight/weight. Estimated Glomerular Filt Rate >60 [facility] Comment:Chronic Kidney Disea se: Estimated GFR < 60 mL/min/1.11d1Qyrhul Kidney Disease: Estimated GFR < 15 mL/min/1.73m2 Glucose 122(H) 60 - 115 mg/dL [facility] Calcium 9.2 8.4 - 10.2 mg/dL [facility] Bilirubin, Total 0.4 0.0 - 1.0 mg/dL [facility] Aspartate Amino Transferase 25 5 - 31 U/L [facility] Alanine Aminotransferase 25 0 - 31 U/L [facility] Total Protein 6.7 6.5 - 8.0 g/dL [facility] Albumin Level 3.8 3.5 - 5.0 g/dL [facility] Alkaline Phosphatase 156(H) 39 - 117 U/L [facility] 09/05/2024 9:17 AM EDT 09/05/2024 9:20 AM EDT us Generic External Data Provider LAB BLOOD ORDERAB LES Final Result [facility] [address] [place] [phone] [phone] * Vitamin D, 25-Hydroxy, Total, Immunoassay (08/28/2024 10:24 AM EDT) Vitamin D 25-OH Total 39.5 >30 ng/mL [facility] Comment: Health Based Reference Values*< 20 ??ng/mL ??Pvoeajost03-37 ng/mL ??Insufficient> 30 ??ng/mL ??Sufficient*Sharona RICO. N [...] Provider LAB BLOOD ORDERAB LES Final Result [facility] [address] [place] [phone] * Protein, Total and Protein??Electrophoresis (08/28/2024 10:24 AM EDT) Prot Elec - Total Protein 7.0 6.1 - 8.1 g/dL [facility] Prot Elec - Albumin 4.0 3.8 - 4.8 g/dL [facility] Prot Elec - Alpha1 0.3 0.2 - 0.3 g/dL [facility] Prot Elec - Alpha2 0.8 0.5 - 0.9 g/dL [facility] Prot Elec - Beta 1 0.4 0.4 - 0.6 g/dL [facility] Prot Elec - Beta 2 0.4 0.2 - 0.5 g/dL [facility] Prot Elec - Gamma 1.1 0.8 - 1.7 g/dL [facility] PES - Abn Protein Band 1 TNP [facility] PES-Abn Protein Band 2 TNP [facility] PES-Abn Protein Band 3 [facility] Prot Elec - Interpretation SEE NOTE [facility] Comment:Normal Serum Protein Electrophoresis Pattern.No abnormal protein bands (M-protein) detected.THIS TEST WAS PERFORMED AT:[facility] [place] [phone] KIM MD 08/28/2024 10:2 4 AM EDT 08/28/2024 10:24 AM EDT Generic External Data Provider LAB BLOOD ORDERAB LES Final Result Performing Organization Address [facility] de Phone Number [facility] [address] [place] [phone] * Phosphate (As Phosphorus) (08/28/2024 10:24 AM EDT) Phosphorus 4.0 2.7 - 4.5 mg/dL [facility] 08/28/2024 10:2 4 AM EDT 08/28/2024 10:24 AM EDT Generic External Data Provider LAB BLOOD ORDERAB LES Final Result Performing Organization Address [facility] Co de Phone Number [facility] [address] [place] [phone] * CREATININE, 24 HR GROUP (08/28/2024 5:00 AM EDT) Creatinine, 24 Hour Urine 1.1 1.0 - 2.0 G/Day [facility] Creatinine, Urine 49.03 [facility] Urine Total Volume 24 Hour 2,200 mL [facility] 08/28/2024 5:00 AM EDT 08/28/2024 11:08 AM EDT [facility] - 08/28/2024 2:37 PM EDT [id number] Generic External Data Provider LAB URINE ORDERAB LES Final Result Performing Organization Address [facility]/ZIP Co de Phone Number [facility] [address] [place] [phone] * (ABNORMAL) Calcium, 24 Hour Urine W/ Creatinine (08/28/2024 5:00 AM EDT) Calcium, 24 Hour Urine 264(A) mg/24 h [facility] Comment:Reference Range 35-2 50 Low calcium diet 35-200 Calcium/Creatini ne Ratio 240 30 - 275 mg/g creat [facility] Creatinine, 24 Hour Urine 1.10 0.50 - 2.15 g/24 h [facility] Comment:THIS TEST WAS PERFOR MED AT:[facility] [place] [phone] KIM MD 08/28/2024 5:00 AM EDT 08/28/2024 11:08 AM EDT [facility] - 08/29/2024 6:08 PM EDT [id number] Generic External Data Provider LAB URINE ORDERAB LES Final Result Performing Organization Address City/[facility]/ZIP Co de Phone Number [facility] [address] [place] [phone] * (ABNORMAL) Lipid Panel, Standard (07/04/2023 8:42 AM EST) Triglycerides 60 <150 mg/dL [facility] Comment:Desirable Triglyceri de: less than 150 mg/dLBorderline High Triglyceride 150-199 mg/dLHigh Triglyceride: 200-499 mg/dLVery High Triglyceride: greater than or equal to 5OO mg/dL Cholesterol 178 <200 mg/dL [facility] Comment:Desirable Cholestero l: less than 200 mg/dLBorderline High Cholesterol: 200-239 mg/dLHigh Cholesterol: greater than 239 mg/dL LDL Cholesterol Calculated 101(H) <100 mg/dL [facility] Comment:Desirable LDL: less than 100 mg/dLNear Optimal/Above Optimal LDL: 110- 129 mg/dLBorderline High LDL: 130-159 mg/dLHigh LDL: 160-189 mg/dLVery High LDL: greater than or equal to 190 mg/dL HDL Cholesterol 65 >40 mg/dL [facility] Comment:Desirable HDL: great er than 40 mg/dL Note: This HDL assay may give artificially low results in patients with liver disease. 07/04/2023 8:42 AM EST 07/04/2023 11:24 AM EST [facility] DEVELOPMENTAL SERVICES WORKER LAB BLOOD ORDERABLES Final Re sult Performing Organization Address City/State/[facility] Co de Phone Number [facility] [address] [place] [phone] * Mammography Report 1 (12/15/2021 2:40 PM EDT) Anatomical Region Laterality Modality Breast Bilateral Mammography 12/15/2021 2:40 PM EDT Narrative 12/16/2021 8:05 AM EDT Refer to the Notes tab for result details [facility] Procedure: Mammography Report 1 Procedure Note Provider, MD Karlos - 09/04/2022 Refer to the Notes tab for result details [facility] Procedure: Mammography Report 1 Lenora Fabian DEVELOPMENTAL SERVICES WORKER IMG BI PROCEDURES Final Result * HPV mRNA E6/E7 (03/29/2017 3:50 PM EDT) HPV mRNA E6/E7 Not Detected NOT DETECTED [facility] Comment: This test was performed using the APTIMA(R) HPV Assay ([employer] This assay detects E6/E7 viral messenger RNA (mRNA) from 14 high-risk HPV types (16,18,31,33,35,39,45,51, 52,56,58,59,66,68). For additional information please refer to: http://education.[employer] FX/faq/UCL088l8 (This link is being provided for informational/ educational purposes only.) Test Performed by [employer], [facility], [address] [place] [address] Ronak Farah M.D., Ph.D., Director of Laboratories , [facility] [id number] Please note: ??Effective 02/22/2016, HPV testing will be performed using [employer]'s APTIMA test which targets mRNA. Detecting mRNA instead of DNA, as in older methods, offers significant improvements in specificity. 03/29/2017 3:50 PM EDT us Shital Cassa CNM HISTORICAL/NON ORDERABLE LABS Final Result [facility] Former[facility]where [address] from Last 3 Months or Most Recently Relevant to Health Maintenance Insurance [facility] STANDARD MEDICARE Care Teams Fine Unhairer Relationship Specialty Start Date End Date Carlotta Szymanski FNP [address] [place] [address] PCP - General Family Medicine 02/08/22
--- OUTSIDE RECORDS SUMMARY | 2024-10-09 16:14 | XMS_ITS | Encounter Summary ---
Author Organization [employer] Address [address] [facility] 7t [place] [address] Care Team Providers Care Bariatric Surgeon Name Role Phone [place] [facility] Primary Care Provider [phone] Reason for Visit * Reason Onset Date Comments Reschedule 05/01/2023 Encounter Details Date Type Department Care Team ([facility] st Contact Info) Description 05/01/2023 Telephone [facility] [address] [place], [place] [phone] [place] [facility] [address] [place] [address] Reschedule Social History Tobacco Use Types Packs/Day [...] with others, in a hotel, in a nursing home, living outside on the street, on a [...] 04/25 derm appointment. Please contact pt at [phone] (Swedish) documented in this encounter Plan of Treatment Upcoming Encounters Date Type Department Care Team (Late st Contact Info) Description 10/15/2024 9:30 AM EDT Office Visit [facility] PEDS [address] [place] [address] Aurelia Blackmon MD [address] [place] [address] documented as of this encounter Visit Diagnoses Not on filedocumented in this encounter Additional Health Concerns Assessment Noted Time PHQ-9 Depression Total Score: 0 11/11/19 1:09 PM EDT documented as of this encounter Care Teams Bariatric Surgeon Relationship Specialty Start Date End Date Carlotta Szymanski FNP [address] [place] [phone] PCP - General Family Medicine 02/08/22 documented as of this encounter
--- OUTSIDE RECORDS SUMMARY | 2024-10-09 16:14 | XMS_ITS | Encounter Summary ---
Author Organization [employer] Address [address] [facility] [address] [place] [address] Care Team Providers Care Lay Out Maker Name Role Phone Carlotta Szymanski MERCHANDISE MARKER Primary Care Provider [phone] Reason for Visit * Reason Comments Med Refill Encounter Details Date Type Department Care Team ([facility] st Contact Info) Description 03/23/2024 Refill [facility] MED & PEDS [address] [place] [address] Tata Bullard MD [address] [place] [address] Primary hypertension Social History Tobacco Use Types [...] Description 10/15/2024 9:30 AM EDT Office Visit [facility] [address] [place] [address] Aurelia Blackmon MD [address] [place] [address] documented as of this encounter Visit Diagnoses Diagnosis Primary hypertension Unspecified essential hypertension documented in this encounter Additional Health Concerns Assessment Noted Time PHQ-9 Depression Total Score: 0 05/12/20 23 1:22 PM EST documented as of this encounter Care Teams Lay Out Maker Relationship Specialty Start Date End Date Carlotta Szymanski FNP [address] [place] [phone] PCP - General Family Medicine 02/08/22 documented as of this encounter
--- OUTSIDE RECORDS SUMMARY | 2024-10-09 16:14 | XMS_ITS | Encounter Summary ---
Author Organization [employer] Address [address] [facility] [address] 7t [place] [address] Care Team Providers Care Frame Table Operator Helper Name Role Phone [place] [facility] Primary Care Provider [phone] Reason for Visit * Reason Onset Date Comments Appointment Request 02/06/2024 Encounter Details Date Type Department Care Team ([facility] st Contact Info) Description 02/06/2024 Telephone [facility]IC[facility] [address] [place] [address] [place] [facility] [address] [place] [address] Appointment Request Social History Tobacco Use Types [...] call for appt. Please contact pt at [phone]. documented in this encounter Plan of Treatment Upcoming Encounters Date Type Department Care Team ([facility] st Contact Info) Description 10/15/2024 9:30 AM EDT Office Visit [facility] MED [facility] PEDS [address] [place] [address] Aurelia Blackmon MD [address] [place] [address] documented as of this encounter Visit Diagnoses Not on filedocumented in this encounter Additional Health Concerns Assessment Noted Time PHQ-9 Depression Total Score: 0 05/12/20 23 1:22 PM EST documented as of this encounter Care Teams Frame Table Operator Helper Relationship Specialty Start Date End Date Carlotta Szymanski FNP [address] [place] [address] PCP - General Family Medicine 02/08/22 documented as of this encounter
--- OUTSIDE RECORDS SUMMARY | 2024-10-09 16:14 | XMS_ITS | Encounter Summary ---
Author Organization [employer] Address [address] [facility] 7t [place] [address] Care Team Providers Care Frame Stylist Name Role Phone Carlotta Szymanski STUDENT RECORDS COORDINATOR Primary Care Provider [phone] Encounter Details Date Type Department Care Team ([facility] st Contact Info) Description 01/22/2024 Orders Only [facility] MED & PEDS [address] [place] [address] Aurelia Blackmon MD [address] [place] [address] Other osteoporosis without current pathological fracture (Primary [...] 10/15/2024 9:30 AM EDT Office Visit [facility] [address] [place] [address] Aurelia Blackmon MD [address] [place] [address] documented as of this encounter Visit Diagnoses Diagnosis Other osteoporosis without current pathological fracture- Primary documented in this encounter Additional Health Concerns Assessment Noted Time PHQ-9 Depression Total Score: 0 05/12/20 23 1:22 PM EST documented as of this encounter Care Teams Frame Stylist Relationship Specialty Start Date End Date Carlotta Szymanski FNP [address] [place] [phone] PCP - General Family Medicine 02/08/22 documented as of this encounter
--- OUTSIDE RECORDS SUMMARY | 2024-10-09 16:14 | XMS_ITS | Encounter Summary ---
Author Organization [employer] Address [address] [facility] 7t [place] [address] Care Team Providers Care Fingernail Technician Name Role Phone Carlotta Szymanski CRAB FISHERMAN Primary Care Provider [phone] Reason for Visit * Reason Comments Med Refill Encounter Details Date Type Department Care Team ([facility] Contact Info) Description 03/23/[address] [facility] CH[facility] MED & PEDS [address] [place] [address] Aurelia Blackmon MD [address] [place] [address] Gastroesophageal reflux disease without esophagitis Social History [...] [facility] MED & PEDS [address] [place] [address] Aurelia Blackmon MD [address] [place] [address] documented as of this encounter Visit Diagnoses Diagnosis Gastroesophageal reflux disease without esophagitis Esophageal reflux documented in this encounter Additional Health Concerns Assessment Noted Time PHQ-9 Depression Total Score: 0 05/12/20 23 1:22 PM EST documented as of this encounter Care Teams Fingernail Technician Relationship Specialty Start Date End Date Carlotta Szymanski FNP [address] [place] [address] PCP - General Family Medicine 02/08/22 documented as of this encounter
--- OUTSIDE RECORDS SUMMARY | 2024-10-09 16:14 | XMS_ITS | Encounter Summary ---
Author Organization [employer] Address 75 [facility] 7 [place] [address] Care Team Providers Care Cardiovascular Tech Name Role Phone Carlotta Szymanski DERMATOLOGY SALES REPRESENTATIVE Primary Care Provider [phone] Encounter Details Date Type Department Care Team ([facility] Contact Info) Description 03/08/2023 Orders Only [facility] [address] [place] [address] Aurelia Blackmon MD [address] [place] [address] Pemphigus vulgaris (Primary Dx) Social History Tobacco [...] Upcoming Encounters Date Type Department Care Team ([facility] Contact Info) Description 10/15/2024 9:30 AM EDT Office Visit [facility] [address] [place] [address] Aurelia Blackmon MD [address] [place] [address] documented as of this encounter Visit Diagnoses Diagnosis Pemphigus vulgaris- Primary Pemphigus documented in this encounter Additional Health Concerns Assessment Noted Time PHQ-9 Depression Total Score: 0 11/11/19 23 1:09 PM EDT documented as of this encounter Care Teams Cardiovascular Tech Relationship Specialty Start Date End Date Carlotta Szymanski FNP [address] [place] [address] PCP - General Family Medicine 02/08/22 documented as of this encounter
--- OUTSIDE RECORDS SUMMARY | 2024-10-09 16:14 | XMS_ITS | Encounter Summary ---
Author Organization [employer] Address 75 [facility] 7 [place] [address] Care Team Providers Care Analyst Programmer Name Role Phone Carlotta Szymanski MICA SIZER Primary Care Provider [phone] Reason for Visit * Reason Comments Med Refill Encounter Details Date Type Department Care Team ([facility] Contact Info) Description 04/03/2023 Refill [facility] [address] [place] [address] Aurelia Blackmon MD 505 [place] [address] Social History Tobacco Use Types Packs/Day Years [...] with others, in a hotel, in a long-term, living outside on the street, on a [...] Description 10/15/2024 9:30 AM EDT Office Visit [facility] [address] [place] [address] Aurelia Blackmon MD [address] [place] [address] documented as of this encounter Visit Diagnoses Not on filedocumented in this encounter Additional Health Concerns Assessment Noted Time PHQ-9 Depression Total Score: 0 11/11/19 23 1:09 PM EDT documented as of this encounter Care Teams Analyst Programmer Relationship Specialty Start Date End Date Carlotta Szymanski FNP [address] [place] [address] PCP - General Family Medicine 02/08/22 documented as of this encounter
--- OUTSIDE RECORDS SUMMARY | 2024-10-09 16:14 | XMS_ITS | Encounter Summary ---
Author Organization [employer] [facility] [employer] Address 75 [facility] 7t [place] [address] Care Team Providers Care Tire Repair Mechanic Name Role Phone Carlotta Szymanski RETAIL PROPERTY MANAGER Primary Care Provider [phone] Reason for Visit * Reason Comments Med Refill Encounter Details Date Type Department [facility] ([facility] Description 07/03/2023 Refill [facility] MED & PEDS [address] [place] [address] Aurelia Blackmon MD [address] [place] [address] Pemphigus vulgaris Social History Tobacco Use Types [...] 10/15/2024 9:30 AM EDT Office Visit [facility] [address] [place] [address] Aurelia Blackmon MD [address] [place] [address] documented as of this encounter Visit Diagnoses Diagnosis Pemphigus vulgaris Pemphigus documented in this encounter Additional Health Concerns Assessment Noted Time PHQ-9 Depression Total Score: 0 05/12/20 23 1:22 PM EST documented as of this encounter Care Teams Tire Repair Mechanic Relationship Specialty Start Date End Date Carlotta Szymanski FNP [address] [place] [address] PCP - General Family Medicine 02/08/22 documented as of this encounter
--- OUTSIDE RECORDS SUMMARY | 2024-10-09 16:14 | XMS_ITS | Referral Summary ---
Author Organization [facility] Address [address] [place] [address] Care Team Providers Care Mandolin Repair Person Name Role Phone Aurelia Blackmon Primary Care Provider [phone] Allergies No known active allergies Medications magic [...] Description 11/12/2024 10:00 AM EDT Office Visit [facility] [address]th [address] [place] [address], [place] [address] Photographic Process Worker: Meredith Gonzalez MD [address] [place] [address] 11/21/2024 9:00 AM EDT [facility] [address] [place] [address] Meredith Samayoa MD [address] [place] [address] 12/05/2024 9:00 AM EDT Infusion [facility] [address] [place] [address] Meredith Samayoa MD [address] [place] [address] Procedures * Due to [place] [employer] law, this organization might not be sharing negative HIV tests. Procedure Name Priority Date/Time Associated Diagnosis Comments HEPATITIS C ANTIBODY W/REFLEX TO HCV RNA, QUANTITATIVE PCR Routine 10/25/2023 3:57 PM EDT Pemphigus vulgaris High risk medication use from Last 3 Months or Most Recently Relevant to Health Maintenance Results * Due to [place] [employer] law, this organization might not be sharing negative HIV tests. * Hepatitis C Antibody w/Reflex to HCV RNA, Quantitative PCR (10/25/2023 3:57 PM EDT) Hepatitis C Antibody NON-REACT WILFREDO NON-REACT WILFREDO 10/26/2023 2:19 AM EDT [employer] [facility] Comment: HCV antibody was non-reactive. There is no laboratory evidence of HCV infection. In most cases, no further action is required. However, if recent HCV exposure is suspected, a test for HCV RNA (test code 48332) is suggested. For additional information please refer to http://education.Mplife.com.Advebs/faq/NOO23x0 (This link is being provided for informational/ educational purposes only.) Blood Structure of peripheral vein / Unknown 10/25/2023 3:57 PM EDT 10/25/2023 10:40 PM EDT Narrative [facility] - 10/28/2023 1:56 PM EDT FASTING:NO Meredith Samayoa MD LAB BLOOD ORDERABLES Final Result [facility] [address] [facility] 3rd Floor, [place] [address], [place] [phone] [facility] [address] [place] [address] from Last 3 Months or Most Recently Relevant to Health Maintenance Insurance [facility] MEDICARE Care Teams Mandolin Repair Person Relationship Specialty Start Date End Date Aurelia Blackmon [address] [place] [address] PCP - General Internal Medicine 10/16/23
== END 2024-10-09 15:31 | disposition home or self-care (01) ==
LOC: HO.ENCR 15:11
PROVIDERS: PCP Internal Medicine; Visit Provider Internal Medicine Endocrinology, Diabetes & Metabolism
DX: M81.0 Age-related osteoporosis without current pathological fracture (principal)

== ENCOUNTER → 2024-10-09 15:10 | Outpatient (BNVA) | payer MEDICARE, MEDICAID, SELFPAY | PROVIDERS: PCP Internal Medicine; Visit Provider Internal Medicine Endocrinology, Diabetes & Metabolism | DX: M81.0 Age-related osteoporosis without current pathological fracture (principal) | CPT/HCPCS: 96372; J3111 ==

== ENCOUNTER 2024-11-06 14:57 | Outpatient (AMB) | payer MEDICARE, MEDICAID, SELFPAY ==
--- OUTSIDE RECORDS SUMMARY | 2024-11-06 15:44 | XMS_ITS | Encounter Summary ---
Author Organization [employer] Address 75 [facility] 7 [place] [address] Care Team Providers Care Vice President [employer] Market Insights Name Role Phone Carlotta Szymanski HAMMER MILL OPERATOR Primary Care Provider [phone] Reason for Visit * Reason Onset Date Comments Med Refill 05/07/2024 Encounter Details Date Type Department Care Team ([facility] st Contact Info) Description 05/07/2024 Refill [facility] & [facility]EDS [address] [place] [address] Aurelia Blackmon MD [address] [place] [address] Pemphigus vulgaris; Dry skin Social History Tobacco [...] as of this encounter Plan of Treatment Not on file documented as of this encounter Visit Diagnoses Diagnosis Pemphigus vulgaris Pemphigus Dry skin Other symptoms involving skin and integumentary tissues documented in this encounter Additional Health Concerns Assessment Noted Time PHQ-9 Depression Total Score: 0 05/12/20 23 1:22 PM EST documented as of this encounter Care Teams Vice President [employer] Insights Relationship Specialty Start Date End Date Carlotta Szymanski FNP [address] [place] [address] PCP - General Family Medicine 02/08/22 documented as of this encounter
--- NOTE | 2024-11-06 15:51 | AM.OFFVISNUR ---
Intake Visit Reasons: Evenity #2 Allergies No Known Allergies [No Known Allergies*] Allergy (Verified 10/01/24 08:11) Office Meds romosozumab-aqqg 210 mg/2.34 mL(105 mg/1.17 mL x2)subcutaneous syringe Performing Provider: Tonny Weber MD Performing Location: [facility] Endocrinology Administered by: Jess Pickard RN on 11/06/24 15:15 Dose Route Admin Location Dispensed Lot Number Expiration Date [facility] Trim Die Maker 210 mg subcut bilateral upper arms 2.34 mL [id number] 01/09/27 09221-623-45 AMGEN Comments: Patient accompanied by daughter, Sarah who interpreted for visit, claims collector denied. Patient tolerated injection well and denied any problems with first injection. Scheduled for repeat visit in x4 weeks. Assessment & Plan Assessment & Plan Orders: Orders AMB Romosozumab Injection Patient Supplied Today M81.0 - Age-related osteoporosis without current pathological fracture Medications: New romosozumab-aqqg 210 mg (2.34 mL) subcut ONCE 2.34 mL 0RF M81.0 - Age-related osteoporosis without current pathological fracture Coding
== END 2024-11-06 15:14 | disposition home or self-care (01) ==
LOC: HO.ENCR 14:58
PROVIDERS: PCP Internal Medicine; Visit Provider Internal Medicine Endocrinology, Diabetes & Metabolism
DX: M81.0 Age-related osteoporosis without current pathological fracture (principal)

== ENCOUNTER → 2024-11-06 14:57 | Outpatient (BNVA) | payer MEDICARE, MEDICAID, SELFPAY | PROVIDERS: PCP Internal Medicine; Visit Provider Internal Medicine Endocrinology, Diabetes & Metabolism | DX: M81.0 Age-related osteoporosis without current pathological fracture (principal) | CPT/HCPCS: 96372; J3111 ==

== ENCOUNTER 2024-12-04 14:39 | Outpatient (AMB) | payer MEDICARE, MEDICAID, SELFPAY ==
--- NOTE | 2024-12-04 15:09 | AM.OFFVISNUR ---
Intake Visit Reasons: Evenity #3 Allergies No Known Allergies (No Known Allergies*) Allergy (Verified 10/01/24 08:11) Office Meds romosozumab-aqqg 210 mg/2.34 mL(105 mg/1.17 mL x2)subcutaneous syringe Performing Provider: Tonny Weber MD Performing Location: [facility] Endocrinology Administered by: Soledad Lao RN on 12/04/24 15:09 Dose Route Admin Location Dispensed Lot Number Expiration Date [facility] Hospice Liaison 210 mg subcut bilateral upper arms 2.34 mL [id number] 03/11/27 03645-483-53 AMGEN Total Dispensed Waste 2.34 mL 0 % Comments: Pt accompanied by daughter who interpreted visit. No adverse reactions reported from previous injection. Pt schedule for next injection in 4 weeks. No further questions at this time. Assessment & Plan Assessment & Plan Orders: Orders AMB Romosozumab Injection Patient Supplied Today M81.0 - Age-related osteoporosis without current pathological fracture Coding
--- OUTSIDE RECORDS SUMMARY | 2024-12-04 17:32 | XMS_ITS | Encounter Summary ---
Author Organization [employer] Address 75 [facility] 7 [place] [address] Care Team Providers Care Foot Worker Name Role Phone Carlotta Szymanski COURT BAILIFF Primary Care Provider [phone] Reason for Visit * Reason Onset Date Comments Med Refill 05/07/2024 Encounter Details Date Type Department Care Team ([facility] st Contact Info) Description 05/07/2024 Refill [facility] MED & PEDS [address] [place] [address] Aurelia Blackmon MD [address] [place] [address] Pemphigus vulgaris; Dry skin Social History Tobacco [...] documented as of this encounter Care Teams Foot Worker Relationship Specialty Start Date End Date Carlotta Szymanski FNP [address] [place] [address] PCP - General Family Medicine 02/08/22 documented as of this encounter
== END 2024-12-04 15:07 | disposition home or self-care (01) ==
LOC: HO.ENCR 14:39
PROVIDERS: PCP Internal Medicine; Visit Provider Internal Medicine Endocrinology, Diabetes & Metabolism
DX: M81.0 Age-related osteoporosis without current pathological fracture (principal)

== ENCOUNTER → 2024-12-04 14:39 | Outpatient (BNVA) | payer MEDICARE, MEDICAID, SELFPAY | PROVIDERS: PCP Internal Medicine; Visit Provider Internal Medicine Endocrinology, Diabetes & Metabolism | DX: M81.0 Age-related osteoporosis without current pathological fracture (principal) | CPT/HCPCS: 96372; J3111 ==

== ENCOUNTER 2025-01-01 14:50 | Outpatient (AMB) | payer MEDICARE, MEDICAID, SELFPAY ==
--- NOTE | 2025-01-01 15:19 | AM.OFFVISNUR ---
Intake Visit Reasons: Evenity #4 Allergies No Known Allergies (No Known Allergies*) Allergy (Verified 10/01/24 08:11) Office Meds romosozumab-aqqg 210 mg/2.34 mL(105 mg/1.17 mL x2)subcutaneous syringe Performing Provider: Tonny Weber MD Performing [place] [facility] [place] Administered by: Jess Pickard RN on 01/01/25 15:19 Dose Route Admin Location Dispensed Lot Number Expiration Date [facility] Oil Agent 210 mg subcut bilateral upper arms 2.34 mL [id number] 03/11/27 92320-862-05 AMGEN Total Dispensed Waste 2.34 mL 0 % Comments: Patient accompanied by son, personal lines account manager declined. Son provided interpretation. Patient tolerated injection well and declines any problems with previous injection. Scheduled for f/u in x4 weeks. Assessment & Plan Assessment & Plan Orders: Orders AMB Romosozumab Injection Patient Supplied Today M81.0 - Age-related osteoporosis without current pathological fracture Coding
== END 2025-01-01 15:18 | disposition home or self-care (01) ==
LOC: HO.ENCR 14:51
PROVIDERS: PCP Internal Medicine; Visit Provider Internal Medicine Endocrinology, Diabetes & Metabolism
DX: M81.0 Age-related osteoporosis without current pathological fracture (principal)

== ENCOUNTER → 2025-01-01 14:50 | Outpatient (BNVA) | payer MEDICARE, MEDICAID, SELFPAY | PROVIDERS: PCP Internal Medicine; Visit Provider Internal Medicine Endocrinology, Diabetes & Metabolism | DX: M81.0 Age-related osteoporosis without current pathological fracture (principal) | CPT/HCPCS: 96372; J3111 ==

== ENCOUNTER 2025-01-29 14:47 | Outpatient (AMB) | payer MEDICARE, MEDICAID, SELFPAY ==
--- NOTE | 2025-01-29 15:01 | AM.OFFVISNUR ---
Intake Visit Reasons: Evenity #5 Allergies No Known Allergies (No Known Allergies*) Allergy (Verified 10/01/24 08:11) Office Meds romosozumab-aqqg 210 mg/2.34 mL(105 mg/1.17 mL x2)subcutaneous syringe Performing Provider: Tonny Weber MD [place]forming [place] [facility] [place] Administered by: Soledad Lao RN on 01/29/25 15:01 Dose Route Admin Location Dispensed Lot Number Expiration Date [place] Motor Vehicle Inspector 210 mg subcut Bilateral Upper arms 2.34 mL [id number] 04/11/27 47554-652-92 AMGEN Total Dispensed Waste 2.34 mL 0 % Comments: Pt accompanied by granddaughter who interpreted visit. Pt declined airport operations crew member. No adverse reactions reported from previous injection. Pt tolerated injection well. Pt scheduled in 4 weeks for next appt. No further questions at this time. Assessment & Plan Assessment & Plan Orders: Orders AMB Romosozumab Injection Patient Supplied Today M81.0 - Age-related osteoporosis without current pathological fracture Coding
--- OUTSIDE RECORDS SUMMARY | 2025-01-29 15:43 | XMS_ITS | Encounter Summary ---
Author Organization [employer] Address 75 [facility] 7 [place] [address] Care Team Providers Care Veterinary Assistant Technician Name Role Phone Carlotta Szymanski LAST CLEANER Primary Care Provider [phone] Reason for Visit * Reason Onset Date Comments Med Refill 05/07/2024 Encounter Details Date Type Department Care Team ([facility] st Contact Info) Description 05/07/2024 Refill [facility] MED & PEDS [address] [place] [address] Aurelia Blackmon MD [address] [place] [address] Pemphigus vulgaris; Dry skin Social History Tobacco [...] documented as of this encounter Care Teams Veterinary Assistant Technician Relationship Specialty Start Date End Date Carlotta Szymanski FNP [address] [place] [address] PCP - General Family Medicine 02/08/22 documented as of this encounter
--- OUTSIDE RECORDS SUMMARY | 2025-01-29 15:43 | XMS_ITS | Encounter Summary ---
Author Organization [facility] Address [address] [place] [address] Care Team Providers Care Well Logging Operator Mud Analysis Name Role Phone Lokeshfernandoaurelianoivanna Aliciaedith Ray Primary Care Provider [phone] Encounter Details Date Type Department Care Team (Late st Contact Info) Description 01/24/2025 Results Follow-Up [facility] [address] [phone] Clinical Informatics Spec: Makenzie Hess MD [address] [place] [address] Social History Tobacco Use Types Packs/Day Years Used Date Smoking Tobacco: Unknown Comments Unknown Sex and Gender Information Value Date Recorded Sex Assigned at Female 06/05/2024 10:21 AM EST Legal Sex Female 11:06 AM EDT Gender Identity Female 06/05/2024 10:21 AM EST Sexual Orientation Straight 06/05/2024 10 :21 AM EST documented as of this encounter Plan of Treatment Upcoming Encounters Date Type Department Care Team (Late st Contact Info) Description 04/25/2025 11:00 AM EST Office Visit [facility] Clinic [address] [phone] Clinical Informatics Spec: Meredith Gonzalez MD [address] [place] [address] documented as of this encounter Visit Diagnoses Not on filedocumented in this encounter Care Teams Well Logging Operator Mud Analysis Relationship Specialty Start Date End Date Aurelia Blackmon [address] [place] [place] [address] PCP - General Internal Medicine 10/16/23 documented as of this encounter
--- OUTSIDE RECORDS SUMMARY | 2025-01-29 15:43 | XMS_ITS | Clinical Summary ---
Author Organization [facility] Address [address] [place] [address] Care Team Providers Care Green Jobs Trainer Name Role Phone Unavailable Primary Care Provider [...] 2006 Zoster Vaccines (1 of 2) 2006 COVID-19 Vaccine (1 - 2023-2 5 season) 2024 Depression Screening 06/12/2024 Influenza Vaccine (#1) 2025 RSV Immunization Adult Patie nts (1 [...]
== END 2025-01-29 15:00 | disposition home or self-care (01) ==
LOC: HO.ENCR 14:48
PROVIDERS: PCP Internal Medicine; Visit Provider Internal Medicine Endocrinology, Diabetes & Metabolism
DX: M81.0 Age-related osteoporosis without current pathological fracture (principal)

== ENCOUNTER → 2025-01-29 14:47 | Outpatient (BNVA) | payer MEDICARE, MEDICAID, SELFPAY | PROVIDERS: PCP Internal Medicine; Visit Provider Internal Medicine Endocrinology, Diabetes & Metabolism | DX: M81.0 Age-related osteoporosis without current pathological fracture (principal) | CPT/HCPCS: 96372; J3111 ==

== ENCOUNTER 2025-02-26 15:07 | Outpatient (AMB) | payer MEDICARE, MEDICAID, SELFPAY ==
--- NOTE | 2025-02-26 15:10 | MHC.OFFVIS ---
Vital Signs 02/26/25 15:15 Height 5 ft 2.32 in Weight 143 lb 15.39 oz BMI 26.1 BP 116/70 Blood Pressure Location Rt brachial Position Sitting Pulse 80 Pulse Source Pulse Oximeter Pulse Oximetry (%) 97 Oxygen Delivery Method Room Air Intake Visit Reasons: Osteoporosis/evenity #6 Intake Note: Patient present today for Osteoporosis follow up and Evenity injection. Supervisor Mapping Required: Yes Supervisor Mapping Language: Shank Cutter Services: Supervisor Mapping Offered & Declined Supervisor Mapping Name: Daughter Information Interpreted: non-clinical & clinical Accompanied by: Daughter Allergies No Known Allergies (No Known Allergies*) Allergy (Verified 02/26/25 15:19) HPI Comments Details: 69 YO Female with hx of Pemphigus vulgaris vulgaris is seen in consultation at the request of PCP for Osteoporosis. First diagnosed in this yr . Received steroids for 12 mos Received treatment in the past with alendronate , from 01/2024 to 05/2024 . Not Tolerated treatment with bone pain . No history of pathologic fracture or ONJ. Has several servings of dietary calcium per day in the form of yogurt. milk . Not Takes Calcium supplement . Not Takes Took PPI, -anticoagulant,- antiepileptic + glucocorticoid medication as above . Does weight bearing exercise 2 days per week in the form of walking . 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 UTD on dental cleanings and sees dentist every 6 months. No planned upcoming dental work or extractions. DXA dated 12/19/2023:FINDINGS: LEFT FEMUR, NECK: Current: BMD 0.727 g/cm2, Z-score -0.8, T-score -2.2, osteopenia. Baseline: BMD 0.777 g/cm2. LEFT FEMUR, TOTAL: Current: BMD 0.817 g/cm2, Z-score -0.3, T-score -1.5, osteopenia, 7.8% decrease from baseline (<5% change is not significant). Baseline: BMD 0.886 g/cm2. AP SPINE L1-L4: Current: BMD 0.779 g/cm2, Z-score -1.9, T-score -3.3, osteoporosis, 8.8% decrease from baseline (<5% change is not significant). Baseline: BMD 0.854 g/cm2. IDENTIFIED RISK FACTORS: Menopause, glucocorticoids, secondary osteoporosis (hyperthyroidism). HISTORY OF FRACTURE: None listed. MEDICATIONS: Calcium supplements or multivitamin, vitamin D. MM/XR DEXA axial skeleton IMPRESSION: 1. DIAGNOSIS: Osteoporosis based on the lowest T-score value o Labs: Secondary workup is negative The patient is a 69-year-old female presenting with osteoporosis management. She previously used alendronate but experienced intolerance. Her bone density is markedly low, increasing her risk for fracture. There are no reports of cancerous treatments that involve the bones, heart attacks, or strokes within the past year. Insurance limitations may impact treatment access. The patient's urinary calcium level was high; hence, dietary intake of calcium was recommended in lieu of supplements. She adheres to vitamin D supplementation regularly. Lifestyle modifications include exercising at the gym five days weekly and part-time work for social activity. She maintains these routines well. - Engages in gym exercises five days a week with good tolerance. - Activities include walking and general exercise routines. Currently on Evenity injection # 6. Tolerating Evenity nicely. No fracture since last visit [facility] Medical History Osteoporosis Acquired hypothyroidism Hypertension Goiter Surgical History History of esophagogastroduodenoscopy (EGD) Hx of colonoscopy Hx of right knee surgery Family History Mother Diabetes Social History Alcohol intake: current Alcohol intake frequency: holidays/special occasions only Patient Tobacco Use Status: Never used Tobacco Physical Exam Vital Signs: Last Vital Signs Pulse 80 02/26/25 15:15 BP 116/70 02/26/25 15:15 Pulse Ox 97 02/26/25 15:15 Oxygen Delivery Method Room Air 02/26/25 15:15 BMI result Body Mass Index 26.1 Office Meds romosozumab-aqqg 210 mg/2.34 mL(105 mg/1.17 mL x2)subcutaneous syringe Performing Provider: Tonny Weber MD Performing Location: [facility] [place] Endocrinology Administered by: Jess Pickard RN on 02/26/25 15:49 Dose Route Admin Location Dispensed Lot Number Expiration Date [place] Quality Control Tester 210 mg subcut bilateral upper arms 2.34 mL [id number] 05/11/27 68906-851-00 AMGEN Total Dispensed Waste 2.34 mL 0 % Comments: Patient tolerated injections well and denies any adverse reactions with previous injections. Assessment & Plan Assessment & Plan (1) Osteoporosis: Code(s): M81.0 - Age-related osteoporosis without current pathological fracture Category: Medical Plan: This is a 69-year-old female with a history of osteoporosis. Rule out secondary causes. Vitamin-D level was low normal but not correctedl. She was previously intolerant of alendronate. Currently on Evenity injection 6. Plan is to continue the Evenity for full years course and then we will most likely transition to Prolia. Orders: Orders AMB Romosozumab Injection Patient Supplied Today M81.0 - Age-related osteoporosis without current pathological fracture Coding Level of Care Code Est Pt Level 3 (18530) Diagnoses Osteoporosis M81.0
[2025-02-26 15:15] VITALS: BP 116/70; PULSE 80; O2SAT 97; BMI 26.1
--- OUTSIDE RECORDS SUMMARY | 2025-02-26 18:40 | XMS_ITS | Encounter Summary ---
Author Organization [employer] Address 75 [facility] 7t [place] [address] Care Team Providers Care Video Game Creator Name Role Phone [place] [facility] Primary Care Provider [phone] Reason for Visit * Reason Comments Med Refill Encounter Details Date Type Department Care Team ([facility] st Contact Info) Description 12/02/2023 Refill [facility] MEDICINE [address] [place], [place] [phone] [facility] [address] [place] [address] Social History Tobacco Use Types Packs/Day Years [...] documented as of this encounter Care Teams Video Game Creator Relationship Specialty Start Date End Date Carlotta Szymanski FNP [address] [place] [address] PCP - General Family Medicine 02/08/22 documented as of this encounter
--- OUTSIDE RECORDS SUMMARY | 2025-02-26 18:40 | XMS_ITS | Encounter Summary ---
Author Organization [employer] Address [address] [facility] 7 [place] [address] Care Team Providers Care Direct Support Staff Member Name Role Phone Carlotta Szymanski CUSHION SPRING ASSEMBLER Primary Care Provider [phone] Reason for Visit * Reason Comments Med Refill Encounter Details Date Type Department Care Team ([facility] Contact Info) Description 03/23/2024 Refill [facility] MED & PEDS [address] [place] [address] Aurelia Blackmon MD [address] [place] [address] Gastroesophageal reflux disease without esophagitis Social History [...] documented as of this encounter Care Teams Direct Support Staff Member Relationship Specialty Start Date End Date Carlotta Szymanski FNP [address] [place] [address] PCP - General Family Medicine 02/08/22 documented as of this encounter
--- OUTSIDE RECORDS SUMMARY | 2025-02-26 18:40 | XMS_ITS | Clinical Summary ---
Author Organization [employer] Address 75 [facility] 7t [place] [address] Care Team Providers Care Laboratory Development Technician Name Role Phone Carlotta Szymanski SLEEPER CUTTER Primary Care Provider [phone] Allergies No known active allergies Medications cetirizine (ZyrTEC) 10 MG tabletIndications :Papulovesicular rash,Allergic conjunctivitis of both eyes Take 1 tablet (10 mg) by mouth if needed each day for allergies (Itching). 30 tablet 2 09/28/19 23 Active ketotifen (Zaditor) 0.025 % ophthalmic solutionIndicatio ns:Allergic conjunctivitis of both eyes Administer 1 drop into both eyes every 12 (twelve) hours if needed (eyeredness/itchin g). 10 mL 09/28/19 23 Active halobetasol (UltraVATE) 0.05 % ointmentIndicatio ns:Pemphigus vulgaris Apply topically 2 times daily. 50 g 2 10/15/19 23 Active triamcinolone (Kenalog) 0.1 % creamIndications: Pemphigus vulgaris Apply topically if needed in the morning and at bedtime (pain and swelling). 453 g 1 12/07/19 23 Active lidocaine (Xylocaine) 2 % solutionIndicatio ns:Pemphigus vulgaris Take 15 mL by mouth every 3 (three) hours. 100 mL 2 03/07/20 23 Active omeprazole (PriLOSEC) [address] capsuleIndication s:Gastroesophagea l reflux disease without esophagitis Take 1 capsule (40 mg) by mouth before breakfast. Do not crush or chew. 30 capsule 07/04/19 24 Active PWZ-Gher-WgEzua-M gHydr-Simeth (First-Mouthwash BLM) suspensionIndicat ions:Pemphigus vulgaris USE 10 ML IN THE MOUTH OR THROAT IF NEEDED IN THE MORNING, AT NOON, IN THE EVENING, AND AT BEDTIME FOR MUCOSITIS. 1 PART OF DIPHENHYDRAMINE HCL 12.5 MG/5 ML, 1 PART OF MAALOX, 1 PART OF 2% VISCOUS LIDOCAINE. QUANTITY 120 ML. SWISH, GARGLE AND SPIT 10 ML EVERY 4 TO 6 HOURS. 237 mL 10/03/19 24 Active diphenHYDRAMINE-A lumMg Hydrox-Lidocaine viscous (MAGIC MouthWASH) suspensionIndicat ions:Pemphigus vulgaris Use 15 mL in the mouth or throat if needed in the morning, at noon, in the evening, and at bedtime for mucositis. 180 mL 10/05/19 24 Active pravastatin (Pravachol) 20 MG tablet TAKE 1 TABLET BY MOUTH EVERY DAY 90 tablet 11/24/19 24 Active amLODIPine (Norvasc) 10 MG tabletIndications :Primary hypertension TAKE 1 TABLET BY MOUTH EVERY DAY 90 tablet 03/20/20 24 Active triamcinolone (Kenalog) 0.1 % creamIndications: Dry skin Apply topically if needed in the morning and at bedtime (pain and swelling). 80 g 05/07/20 24 Active amitriptyline (Elavil) 10 MG tabletIndications :Insomnia, unspecified type Take 1 tablet (10 mg) by mouth at bedtime. 30 tablet 06/19/19 026 Active cholecalciferol (Vitamin D-3) 50 MCG (1999) capsuleIndication s:Other osteoporosis without current pathological fracture Take 1 capsule (50 mcg) by mouth Once per day. 90 capsule 06/19/19 026 Active calcium carbonate (Calcium 600) 600 MG tabletIndications :Other osteoporosis without current pathological fracture Take 1 tablet (600 mg) by mouth with breakfast and with evening meal. 60 tablet 06/19/19 026 Active levothyroxine (Synthroid, Levoxyl) 25 MCG tabletIndications :Primary hypothyroidism TAKE 1 TABLET(25 MCG) BY MOUTH BEFORE BREAKFAST 30 tablet 11 07/24/19 25 Active betamethasone, augmented, (Diprolene) 0.05 % gelIndications:Pe indiras vulgaris APPLY TOPICALLY TO ULCER OF THE LEFT CHEEK TWICE DAILY 15 g 09/27/19 25 Active Active Problems Problem Noted Date Diagnosed Date Immunocompromised patient 06/19/2024 Other osteoporosis without current pathological fracture 01/22/2024 Healthcare maintenance 02/22/2023 Overview (02/22/2023): Mammo: December 2021 Pap: December 2021 at [facility] C-scope: Colonoscopy and endoscopy at [facility] 2022 BMD: 2021, need records Mixed hyperlipidemia 02/22/2023 Overview (05/18/2023): Rosuvastatin 10mg ASCVD 7.7% Assessment & Plan (05/18/2023 8:43 AM EST): Did not start rosuvastatin. Will re send [...] to reduce cholesterol and prevent atherosclerotic events Avoid foods high in saturated fat and to increase foods high in fiber. Review available resources on https://www.heart.org/en/health-topics/cholesterol/dkxdsgojfoa-yycsf-ewn-resourc es to learn more about lifestyle management. Pemphigus vulgaris 10/14/2022 Primary hypertension 09/09/2022 Overview (02/22/2023): Amlodipine 10mg Maintenance: BMP: 12/2022 Lipid Panel: [...] Assessment & Plan (05/18/2023 8:42 AM EST): Well controlled Continue current regimen Acquired hypothyroidism 11/14/2016 Overview (05/18/2023): Levothyroxine 50mcg Assessment & Plan (05/18/2023 8:44 AM EST): Repeat TSH today and adjust as indicated [...] order one. Hospital discharge follow-up 10/06/2022 02/22/2023 Immunizations Immunization Administration Dates Next Due Influenza High-dose Quadrivalent [...] 84 06/19/2024 10:07 AM EST Temperature 36.6 C (97.9 F) 06/19/2024 10:07 AM EST Respiratory Rate 18 06/19/2024 10:07 AM EST Oxygen Saturation 100% 05/07/2024 11:34 AM EST Inhaled Oxygen Concentration - - Weight 71.7 kg (158 lb) 06/19/2024 10:07 AM EST Height 154.9 cm (5' 1 ) 06/19/2024 10:07 AM EST Body Mass Index 29.85 06/19/2024 10:07 AM EST Plan of Treatment Health Maintenance Due Date Last Done Comments CT Colonography 1956 FIT DNA/Cologuard 1956 FIT 1956 FOBT 1956 Sigmoidoscopy 1955 Hepatitis C Screening 1974 Zoster Vaccines (1 of 2) 08/24/1975 RSV Patients and Patients Aged 60 years or older (1 - Risk 60-74 years 1-dose series) 2016 COVID-19 Vaccine (3 - Modern a risk series) 12/07/2020 11/09/2020, 10/12/2020 Mammogram 12/15/2022 12/15/2021, 03/31/2021 Influenza Vaccine (#1) 2025 , 03/29/2017 SDOH Screening 06/11/2025 06/11/2024 Alcohol/Substance Use Screening 06/19/2025 06/19/2024 Depression Screening 06/19/2025 06/19/2024, 06/19/2024 Tobacco Screening 06/20/2025 06/20/2024 Lipid Panel 07/04/2028 07/04/2023, 11/10/2022, 02/11/2021 DTaP/Tdap/Td Vaccines (2 - T d or Tdap) 02/11/2031 02/11/2021 Colonoscopy 10/05/2032 10/05/2022 Colorectal Cancer Screening 10/05/2032 Cervical Cancer Screening Discontinued HPV/Cotest Discontinued 03/29/2017 [...] PANEL, STANDARD Routine 07/04/2023 8:42 AM EST HM COLONOSCOPY Routine 10/05/2022 MAMMOGRAM GENERIC Routine 12/15/2021 2:4 0 PM EDT ZZZ HISTORICAL HPV MRNA E6/E7 Routine 03/29/2017 3:50 PM EDT from Last 3 Months or Most Recently Relevant to Health Maintenance Results * (ABNORMAL) Lipid Panel, Standard (07/04/2023 8:42 AM EST) Triglycerides 60 <150 mg/dL [facility] Comment:Desirable Triglyceri de: less than 150 mg/dLBorderline High Triglyceride 150-199 mg/dLHigh Triglyceride: 200-499 mg/dLVery High Triglyceride: greater than or equal to 5OO mg/dL Cholesterol 178 <200 mg/dL [facility] Comment:Desirable Cholestero l: less than 200 mg/dLBorderline High Cholesterol: 200-239 mg/dLHigh Cholesterol: greater than 239 mg/dL LDL Cholesterol Calculated 101(H) <100 mg/dL [facility] Comment:Desirable LDL: less than 100 mg/dLNear Optimal/Above Optimal LDL: 110- 129 mg/dLBorderline High LDL: 130-159 mg/dLHigh LDL: 160-189 mg/dLVery High LDL: greater than or equal to 190 mg/dL HDL Cholesterol 65 >40 mg/dL [facility] Comment:Desirable HDL: great er than 40 mg/dL Note: This HDL assay may give artificially low results in patients with liver disease. 07/04/2023 8:42 AM EST 07/04/2023 11:24 AM EST [facility] SLEEPER CUTTER LAB BLOOD ORDERABLES Final Re sult [facility] [address] [place] [address] [phone] * Hm Colonoscopy (10/05/2022) Colonoscopy Normal Normal Narrative Celia Singh - 10/05/2022 Repeat in 10 years Historical Provider HEALTH MAINTENANCE Final Result * Mammography Report 1 (12/15/2021 2:40 PM EDT) Anatomical Region Laterality Modality Breast Bilateral Mammography 12/15/2021 2:40 PM EDT Narrative 12/16/2021 8:05 AM EDT Refer to the Notes tab for result details [facility] Procedure: Mammography Report 1 Procedure Note Provider, Karlos, - 09/04/2022 Refer to the Notes tab for result details [facility] Procedure: Mammography Report 1 Lenora Fabian SLEEPER CUTTER IMG BI PROCEDURES Final Result * HPV mRNA E6/E7 (03/29/2017 3:50 PM EDT) HPV mRNA E6/E7 Not Detected NOT DETECTED [facility] Comment: This test was performed using the APTIMA(R) HPV Assay ([employer] This assay detects E6/E7 viral messenger RNA (mRNA) from 14 high-risk HPV types (16,18,31,33,35,39,45,51, 52,56,58,59,66,68). For additional information please refer to: http://education.[employer]/faq/YHZ419r9 (This link is being provided for informational/ educational purposes only.) Test Performed by Tamiko Sevilla, [employer] [facility], [address] [place] [address] Ronak Farah M.D., Ph.D., Director of Laboratories , [place] [id number] Please note: Effective 02/22/2016, HPV testing will be performed using [employer]'s APTIMA test which targets mRNA. Detecting mRNA instead of DNA, as in older methods, offers significant improvements in specificity. 03/29/2017 3:50 PM EDT us Shital Casas CNM HISTORICAL/NON ORDERABLE LABS Final Result [facility] Critical access hospital Anywhere [address] from Last 3 Months or Most Recently Relevant to Health Maintenance Insurance [facility] STANDARD MEDICARE Care Teams Laboratory Development Technician Relationship Specialty Start Date End Date Carlotta Szymanski FNP [address] [place] [phone] PCP - General Family Medicine 02/08/22
--- OUTSIDE RECORDS SUMMARY | 2025-02-26 18:40 | XMS_ITS | Encounter Summary ---
Author Organization [employer] Address 75 [facility] 7 [place] [address] Care Team Providers Care Policy Issue Clerk Name Role Phone Carlotta Szymanski BATTING MACHINE OPERATOR Primary Care Provider [phone] Reason for Visit * Reason Onset Date Comments Med Refill 05/07/2024 Encounter Details Date Type Department Care Team ([facility] st Contact Info) Description 05/07/2024 Refill [facility] CHC MED & PEDS [address] [place] [address] Aurelia Blackmon MD [address] [place] [address] Pemphigus vulgaris; Dry skin Social History Tobacco [...] documented as of this encounter Care Teams Policy Issue Clerk Relationship Specialty Start Date End Date Carlotta Szymanski FNP [address] [place] [phone] PCP - General Family Medicine 02/08/22 documented as of this encounter
--- OUTSIDE RECORDS SUMMARY | 2025-02-26 18:40 | XMS_ITS | Encounter Summary ---
Author Organization [employer] Address [address] [facility] [address] 7t [place] [address] Care Team Providers Care Senior Principal Name Role Phone Carlotta Szymanski INFORMATION TECHNOLOGY INTERN Primary Care Provider [phone] Encounter Details Date Type Department Care Team ([facility] st Contact Info) Description 01/22/2024 Orders Only [facility] CHC MED & PEDS [address] [place] [address] Aurelia Blackmon MD [address] [place] [address] Other osteoporosis without current pathological fracture (Primary [...] as of this encounter Care Teams Senior Principal Relationship Specialty Start Date End Date Carlotta Szymanski FNP [address] [place] [address] PCP - General Family Medicine 02/08/22 documented as of this encounter
--- OUTSIDE RECORDS SUMMARY | 2025-02-26 18:40 | XMS_ITS | Encounter Summary ---
Author Organization [employer] Address 75 [facility] 7t [place] [address] Care Team Providers Care Plastic Technician Name Role Phone [facility] Primary Care Provider [phone] Reason for Visit * Reason Onset Date Comments Appointment Request 02/06/2024 Encounter Details Date Type Department Care Team ([facility] st Contact Info) Description 02/06/2024 Telephone [facility] MEDICINE [address] [place], [place] [phone] [place] [facility] [address] [place] [address] Appointment Request Social History Tobacco Use Types [...] call for appt. Please contact pt at [phone]. documented in this encounter Plan of Treatment Not on file documented as of this encounter Visit Diagnoses Not on filedocumented in this encounter Additional Health Concerns Assessment Noted Time PHQ-9 Depression Total Score: 0 05/12/20 23 1:22 PM EST documented as of this encounter Care Teams Plastic Technician Relationship Specialty Start Date End Date Carlotta Szymanski FNP [address] [place] [phone] PCP - General Family Medicine 02/08/22 documented as of this encounter
--- OUTSIDE RECORDS SUMMARY | 2025-02-26 18:40 | XMS_ITS | Encounter Summary ---
Author Organization [employer] Address [address] [facility] [address] 7t [place] [address] Care Team Providers Care Power Wheelchair Mechanic Name Role Phone Carlotta Szymanski CHAIN PULLER Primary Care Provider Reason for Visit * Reason Comments Med Refill Encounter Details Date Type Department Care Team ([facility] st Contact Info) Description 03/23/2024 Refill [facility] CHC MED & PEDS [address] [place] [address] Tata Bullard MD [address] [place] [address] Primary hypertension Social History Tobacco Use Types [...] documented as of this encounter Care Teams Power Wheelchair Mechanic Relationship Specialty Start Date End Date Carlotta Szymanski FNP [address] [place] [address] PCP - General Family Medicine 02/08/22 documented as of this encounter
--- OUTSIDE RECORDS SUMMARY | 2025-02-26 18:40 | XMS_ITS | Encounter Summary ---
Author Organization [facility] Address [address] [place] [address] Care Team Providers Care Galley Hand Name Role Phone Aurelia Blackmon Primary Care Provider [phone] Encounter Details Date Type Department Care Team (Late st Contact Info) Description 02/02/2025 myChart Message [facility] [address]th [address] [place] [address], Fourth [place] [phone] Land Leasing Examiner: Anabel Vazquez MD [address] [place] [address] Need infusi n Social History Tobacco Use Types Packs/Day Years Used Date Smoking Tobacco: Unknown Comments Unknown Sex and Gender Information Value Date Recorded Sex Assigned at Female 06/05/2024 10:21 AM EST Legal Sex Female 11:06 AM EDT Gender Identity Female 06/05/2024 10:21 AM EST Sexual Orientation Straight 06/05/2024 10 :21 AM EST documented as of this encounter Miscellaneous Notes * Telephone Encounter - Pratima Bauer LPN - 02/05/2025 8:41 AM EDT Duplicate task documented in this encounter Plan of Treatment Upcoming Encounters Date Type Department Care Team (Late st Contact Info) Description 04/25/2025 11:00 AM EST Office Visit [facility] [address] [phone] Land Leasing Examiner: Meredith Gonzalez MD [address] [place] [address] 07/09/2025 11:00 AM EST Office Visit [facility] 4th [address] [place] [phone] Land Leasing Examiner: Meredith Gonzalez MD [address] [place] [address] 08/15/2025 8:45 AM EST Infusion [facility] [address] [place] [address] documented as of this encounter Visit Diagnoses Not on filedocumented in this encounter Care Teams Galley Hand Relationship Specialty Start Date End Date Aurelia Blackmon [address] [place] [phone] PCP - General Internal Medicine 10/16/23 documented as of this encounter
--- OUTSIDE RECORDS SUMMARY | 2025-02-26 18:40 | XMS_ITS | Encounter Summary ---
Author Organization [facility] Address [address] [place] [address] Care Team Providers Care Coil Spring Assembler Name Role Phone Aurelia Blackmon Primary Care Provider [phone] Encounter Details Date Type Department Care Team (Late st Contact Info) Description 02/18/2025 myChart Message [facility] 4th Floor [address] [place] [address], [place] [phone] Laser Engraver: Meredith Gonzalez MD [address] [place] [address] Ruthie Klein ez Social History Tobacco Use Types Packs/Day Years [...] Telephone Encounter - Pratima Bauer LPN - 02/19/2025 10:33 AM EDT Duplicate task documented in this encounter Plan of Treatment Upcoming Encounters Date Type Department Care Team (Late st Contact Info) Description 04/25/2025 11:00 AM EST Office Visit [facility] 4th [address] [place] [phone] Laser Engraver: Meredith Gonzalez MD [address] [place] [address] 07/09/2025 11:00 AM EST Office Visit [facility] 4th Floor [address] [place] [address], [place] [phone] Laser Engraver: Meredith Gonzalez MD [address] [place] [address] 08/15/2025 8:45 AM EST Infusion [facility] [address] [place] [address] documented as of this encounter Visit Diagnoses Not on filedocumented in this encounter Care Teams Coil Spring Assembler Relationship Specialty Start Date End Date Aurelia Blackmon [address] [place] [address] [phone] PCP - General Internal Medicine 10/16/23 documented as of this encounter
--- OUTSIDE RECORDS SUMMARY | 2025-02-26 18:40 | XMS_ITS | Encounter Summary ---
Author Organization [employer] Address 75 [facility] 7 [place] [address] Care Team Providers Care Machine Stuffer Automatic Name Role Phone Carlotta Szymanski ABRASIVE GRINDER Primary Care Provider [phone] Reason for Visit * Reason Comments Med Refill Encounter Details Date Type Department Care Team ([facility] Contact Info) Description 07/03/2023 Refill [facility] CHC MED & PEDS [address] [place] [address] Aurelia Blackmon MD [address] [place] [address] Pemphigus vulgaris Social History Tobacco Use Types [...] documented as of this encounter Care Teams Machine Stuffer Automatic Relationship Specialty Start Date End Date Carlotta Szymanski FNP [address] [place] [address] PCP - General Family Medicine 02/08/22 documented as of this encounter
--- OUTSIDE RECORDS SUMMARY | 2025-02-26 18:40 | XMS_ITS | Encounter Summary ---
Author Organization [employer] Address 75 [facility] 7 [place] [address] Care Team Providers Care Rotary Slicing Machine Operator Name Role Phone [place] [facility] Primary Care Provider [phone] Reason for Visit * Reason Onset Date Comments ER Follow-up 09/20/2022 Encounter Details Date Type Department Care Team ([facility] st Contact Info) Description 09/20/2022 Telephone [facility] MED[facility]INE [address] [place] [address] [place] [facility] [address] [place], [place] [phone] ER Follow-up Social History Tobacco Use Types [...] to report ED visit on 09/20/22 at [facility]. Diagnosed with pain. Patient advised will forward to team nurse for follow up. documented in this encounter Plan of Treatment Not on file documented as of this encounter Visit Diagnoses Not on filedocumented in this encounter Care Teams Rotary Slicing Machine Operator Relationship Specialty Start Date End Date Carlotta Szymanski FNP [address] [place] [address] PCP - General Family Medicine 02/08/22 documented as of this encounter
--- OUTSIDE RECORDS SUMMARY | 2025-02-26 18:40 | XMS_ITS | Encounter Summary ---
Author Organization [employer] Address [address] [facility] [address] 7t [place] [address] Care Team Providers Care Registration Specialist Name Role Phone Carlotta Szymanski ASSEMBLER DECK AND HULL Primary Care Provider [phone] Encounter Details Date Type Department Care Team ([facility] Contact Info) Description 06/08/[address] [facility] CHC MED & PEDS [address] [place] [address] Aurelia Blackmon MD [address] [place] [address] Social History Tobacco Use Types Packs/Day Years [...] documented as of this encounter Care Teams Registration Specialist Relationship Specialty Start Date End Date Carlotta Szymanski FNP [address] [place] [address] PCP - General Family Medicine 02/08/22 documented as of this encounter
--- OUTSIDE RECORDS SUMMARY | 2025-02-26 18:40 | XMS_ITS | Encounter Summary ---
Author Organization [employer] Address 75 [facility] 7 [place] [address] Care Team Providers Care Visiting Teacher Name Role Phone Carlotta Szymanski SMELLER Primary Care Provider [phone] Reason for Visit * Reason Comments Med Refill Encounter Details Date Type Department Care Team ([facility] Contact Info) Description 07/03/2023 Refill [facility] CHC MED & PEDS [address] [place] [address] Aurelia Blackmon MD [address] [place] [address] Pemphigus vulgaris Social History Tobacco Use Types [...] documented as of this encounter Care Teams Visiting Teacher Relationship Specialty Start Date End Date Carlotta Szymanski FNP [address] [place] [address] PCP - General Family Medicine 02/08/22 documented as of this encounter
--- OUTSIDE RECORDS SUMMARY | 2025-02-26 18:41 | XMS_ITS | Encounter Summary ---
Author Organization [employer] Address [address] [facility] 7t [place] [address] Care Team Providers Care Thread Laster Name Role Phone [facility] Primary Care Provider [phone] Reason for Visit * Reason Onset Date Comments Medication Question 05/16/2023 Encounter Details Date Type Department Care Team ([facility] st Contact Info) Description 05/16/2023 Telephone [facility] MEDICINE [address] [place], [place] [phone] [place] [facility] [address] [place], [place] [phone] Medication Question Social History Tobacco Use Types [...] documented as of this encounter Care Teams Thread Laster Relationship Specialty Start Date End Date Stephon LEATHA Laguerre [address] [place] [address] PCP - General Family Medicine 02/08/22 documented as of this encounter
--- OUTSIDE RECORDS SUMMARY | 2025-02-26 18:41 | XMS_ITS | Encounter Summary ---
Author Organization [employer] Address 75 [facility] 7 [place] [address] Care Team Providers Care Fugitive Investigator Name Role Phone Carlotta Szymanski MANAGER DIABETES Primary Care Provider [phone] Encounter Details Date Type Department Care Team ([facility] st Contact Info) Description 03/08/2023 Orders Only [facility] CHC MED & PEDS [address] [place] [address] Aurelia Blackmon MD [address] [place] [address] Pemphigus vulgaris (Primary Dx) Social History Tobacco [...] documented as of this encounter Care Teams Fugitive Investigator Relationship Specialty Start Date End Date [place] LEATHA Laguerre [address] [place] [phone] PCP - General Family Medicine 02/08/22 documented as of this encounter
--- OUTSIDE RECORDS SUMMARY | 2025-02-26 18:41 | XMS_ITS | Encounter Summary ---
Author Organization [employer] Address 75 [facility] 7 [place] [address] Care Team Providers Care Planner Scheduler Name Role Phone [place], [facility] Primary Care Provider [phone] Reason for Visit * Reason Onset Date Comments Reschedule 05/01/2023 Encounter Details Date Type Department Care Team ([facility] st Contact Info) Description 05/01/2023 Telephone [facility] MEDICINE [address] [place] [address] [place] [facility] [address] [place] [address] Reschedule Social History Tobacco Use Types Packs/Day [...] with others, in a hotel, in a jail, living outside on the street, on a [...] 04/25 derm appointment. Please contact pt at [phone] (English) documented in this encounter Plan of Treatment Not on file documented as of this encounter Visit Diagnoses Not on filedocumented in this encounter Additional Health Concerns Assessment Noted Time PHQ-9 Depression Total Score: 0 11/11/19 23 1:09 PM EDT documented as of this encounter Care Teams Planner Scheduler Relationship Specialty Start Date End Date Carlotta Szymanski FNP [address] [place] [address] PCP - General Family Medicine 02/08/22 documented as of this encounter
--- OUTSIDE RECORDS SUMMARY | 2025-02-26 18:41 | XMS_ITS | Encounter Summary ---
Author Organization [facility] Address [address] [place] [address] Care Team Providers Care Poultry Farmworker Name Role Phone Aurelia Blackmon Primary Care Provider Encounter Details Date Type Department Care Team (Late st Contact Info) Description 10/16/2023 Transcribe Orders [facility] Physician Referral Services [address] [place] [address] Aurelia Blackmon [address] [place] [address] Pemphigus vulgaris (Primary Dx) Social History Tobacco [...] Description 04/25/2025 11:00 AM EST Office Visit [facility] [address]th [address] [place] [address], [place] [address] Bottom Loader: Meredith Gonzalez MD [address] [place] [address] 07/09/2025 11:00 AM EST Office Visit [facility] 4th Floor [address] [facility], [place] [phone] Bottom Loader: Meredith Gonzalez MD [address] [place] [address] 08/15/2025 8:45 AM EST Infusion [facility]fusion [facility] [address] [place] [address] documented as of this encounter Visit Diagnoses Diagnosis Pemphigus vulgaris (HCC)- Primary Pemphigus documented in this encounter Care Teams Poultry Farmworker Relationship Specialty Start Date End Date Aurelia Blackmon [address] [place] [address] PCP - General Internal Medicine 10/16/23 documented as of this encounter
--- OUTSIDE RECORDS SUMMARY | 2025-02-26 18:41 | XMS_ITS | Encounter Summary ---
Author Organization [employer] Address 75 [facility] 7 [place] [address] Care Team Providers Care Electrical Controls Designer Name Role Phone Carlotta Szymanski AGRICULTURE MECHANIC Primary Care Provider [phone] Reason for Visit * Reason Comments Med Refill Encounter Details Date Type Department Care Team ([facility] Contact Info) Description 04/03/2023 Refill [facility] [address] [place] [address] Aurelia Blackmon MD [address] [place] [address] Social History Tobacco Use Types Packs/Day Years [...] with others, in a hotel, in a longterm, living outside on the street, on a [...] documented as of this encounter Care Teams Electrical Controls Designer Relationship Specialty Start Date End Date Carlotta Szymanski FNP [address] [place] [address] PCP - General Family Medicine 02/08/22 documented as of this encounter
--- OUTSIDE RECORDS SUMMARY | 2025-02-26 18:41 | XMS_ITS | Encounter Summary ---
Author Organization [employer] Address 75 [facility] 7t [place] [address] Care Team Providers Care Program Director/Morning Show Host Name Role Phone Carlotta Szymanski SERVICE PARTS DRIVER Primary Care Provider [phone] Encounter Details Date Type Department Care Team ([facility] st Contact Info) Description 07/26/2023 Orders Only [facility] [address] [place] [address] Aurelia Blackmon MD [address] [place] [address] Pemphigus vulgaris (Primary Dx) Social History Tobacco [...] documented as of this encounter Care Teams Program Director/Morning Show Host Relationship Specialty Start Date End Date Carlotta Szymanski FNP [address] [place] [address] PCP - General Family Medicine 02/08/22 documented as of this encounter
--- OUTSIDE RECORDS SUMMARY | 2025-02-26 18:41 | XMS_ITS | Encounter Summary ---
Author Organization [employer] Address 75 [facility] 7 [place] [address] Care Team Providers Care Professional Sports Scout Name Role Phone Carlotta Szymanski Primary Care Provider [phone] Encounter Details Date Type Department Care Team (Late st Contact Info) Description 07/29/2022 Telephone [facility] MEDICINE [address] [place] [address] Carlotta Szymanski FNP [address] [place] [address] Social History Tobacco Use Types Packs/Day Years [...] on filedocumented in this encounter Care Teams Professional Sports Scout Relationship Specialty Start Date End Date Carlotta Szymanski FNP [address] [place] [address] PCP - General Family Medicine 02/08/22 documented as of this encounter
--- OUTSIDE RECORDS SUMMARY | 2025-02-26 18:41 | XMS_ITS | Clinical Summary ---
Author Organization [facility] Address [address] [place] [address] Care Team Providers Care Enterprise Account Manager Name Role Phone Aurelia Blackmon Ray Primary Care Provider Allergies No known active allergies Medications magic mouthwash (lidocaine-maal ox-diphenhydrAM INE) 1:1:1 10/05/19 24 Active amLODIPine (NORVASC) 10 mg tablet SMARTSI Tablet(s) By Mouth Daily Active betamethasone, augmented, (DIPROLENE) 0.05 % gel SMARTSIG:Topic al Twice Daily Active halobetasol (ULTRAVATE) 0.05 % ointment SMARTSIG:Topic al Twice Daily 12/09/19 23 Active hydrOXYzine (VISTARIL) 25 mg capsule Take 25 mg by mouth once daily as needed. 07/04/19 24 Active levothyroxine (SYNTHROID, LEVOTHROID) 50 mcg tablet SMARTSI Tablet(s) By Mouth Every Morning 05/15/20 23 Active lidocaine 2 % solution SMARTSI Milliliter(s) By Mouth Every 3 Hours 09/25/19 24 Active Linzess 145 mcg capsule SMARTSI Capsule(s) By Mouth Daily 10/27/19 23 Active naproxen (NAPROSYN) 500 mg tablet 09/19/19 24 Active omeprazole (PriLOSEC) 40 mg capsule Take 40 mg by mouth. 07/04/19 24 Active pravastatin (PRAVACHOL) 10 mg tablet 08/16/19 24 Active Sudafed 30 mg tablet Take 30 mg by mouth every 4 hours as needed. 09/19/19 24 Active rosuvastatin (CRESTOR) 10 mg tablet 05/12/20 23 Active sucralfate (CARAFATE) 1 gram tablet SMARTSI Tablet(s) By Mouth Twice Daily 01/05/20 23 Active triamcinolone acetonide (KENALOG) 0.1% cream SMARTSIG:Topic al Morning-Night PRN Active valACYclovir (VALTREX) 1 gram tablet 08/09/19 24 Active predniSONE (DELTASONE) 10 mg tablet Take 2 pills po QAM as directed 60 tablet 1 10/31/19 24 Active sulfamethoxazol e-trimethoprim (BACTRIM DS) 800-160 mg tablet 1 PO 3 x/week (Mondays, Wednesdays, Fridays) 15 tablet 3 10/31/19 24 Active calcium carbonate-vitam in D3 600 mg-20 mcg (800 unit) tablet 1 po bid as instructed 60 tablet 3 10/31/19 24 Active magic mouthwash (lidocaine-maal ox-diphenhydrAM INE) 1:1:1 11/17/19 24 Active naproxen 500 mg tablet Take 500 mg by mouth. 09/19/19 24 Active lidocaine w/ preservative (XYLOCAINE) 2% (20 mg/mL) injection Take 15 mL by mouth every 3 (three) hours. 03/07/20 23 Active alendronate (FOSAMAX) 70 mg tablet SMARTSI Tablet(s) By Mouth Once a Week Active mycophenolate (CELLCEPT) 500 mg tabletIndicatio ns:Pemphigus vulgaris (HCC) Take 1 tablet (500 mg total) by mouth 2 times a day. 60 tablet 3 02/01/20 24 Active amitriptyline (ELAVIL) 10 mg tablet Take 10 mg by mouth. 06/19/19 25 026 Active cholecalciferol (VITAMIN D3) 2,000 unit capsule Take 50 mcg by mouth daily. 06/19/19 25 026 Active Evenity 210mg/2.34mL ( 105mg/1.17mLx2) syringe 10/30/19 25 Active amLODIPine (NORVASC) 10 mg tablet Take 1 tablet by mouth once a day. 03/20/20 24 Active levothyroxine (SYNTHROID, LEVOTHROID) 25 mcg tablet TAKE 1 TABLET(25 MCG) BY MOUTH BEFORE BREAKFAST 07/24/19 25 Active Linzess 290 mcg SMARTSI Capsule(s) By Mouth Every Morning 10/31/19 25 Active triamcinolone acetonide (KENALOG) 0.1% creamIndication s:Pemphigus vulgaris (HCC) Apply to affected area on skin twice daily as needed 454 g 1 11/13/19 25 Active predniSONE (DELTASONE) 10 mg tabletIndicatio ns:Pemphigus vulgaris (HCC) Take 4 tablets (40 mg total) by mouth once a day for 10 days, THEN 3 tablets (30 mg total) once a day for 5 days, THEN 2 tablets (20 mg total) once a day for 5 days, THEN 1 tablet (10 mg total) once a day for 5 days. Take tablets in the MORNING. 70 tablet 02/20/20 25 025 Active miracle mouthwash (maalox-lidocai hg-fxzsycvx-hmm henhydrAMINE) 1:1:1:1Indicati ons:Pemphigus vulgaris (HCC) Swish and spit 4 mL up to 4 times daily as needed for sores in mouth. Do not swallow medication. 100 mL 1 02/20/20 25 Active predniSONE 5 mg tablet,delayed release (DR/EC) 5 mg once a day 09/05/19 025 Discontinued predniSONE (DELTASONE) 5 mg tabletIndicatio ns:Pemphigus vulgaris (HCC) Take 20mg / 10 mg alternating every other day x 2 weeks, then 20mg / 0 mg every other day x 2 weeks, then 15mg / 0 mg every other day x 2 weeks, then 10mg / 0 mg every other day x 2 weeks, then 5/mg / 0 mg every other day x 2 weeks, then stop 112 tablet 01/01/20 24 025 Discontinued predniSONE (DELTASONE) 5 mg tablet One tab once a day 07/26/19 24 025 Discontinued predniSONE (DELTASONE) 5 mg tablet Take 2 tablets (10mg) every other day for 2 weeks, then 1 tablet (5mg) every other day for 2 weeks, then stop 21 tablet 09/09/30 23 025 Discontinued Active Problems Problem Noted Date Diagnosed Date Pemphigus vulgaris 10/31/2023 Overview (10/31/2023): Pemphigus, failed prednisone and cellcept, refractory oral lesions Encounters Date Type Department Care Team Description 02/19/2025 Telephone [facility] 2nd [address] [place] [address] [phone] Head Nurse: Meredith Gonzalez MD 02/18/2025 [employer] Message [facility] [address] [phone] Head Nurse: Meredith Gonzalez MD Celeste de B ez 02/13/2025 9:45 AM EDT Infusion [facility] [address] [place] [address] Lubna Naik, Dayanna Madera RN Pemphigus vulgaris (HCC) (Primary Dx) 02/07/2025 Orders Only [facility] [address] [address] Head Nurse: Meredith Gonzalez MD 02/04/2025 Telephone [facility] [address] [phone] Head Nurse: Makenzie Hess MD PAC Clinical Questions 02/02/2025 [employer] Message [facility] [address] [phone] Head Nurse: Anabel Vazquez MD Need infusi n 01/24/2025 Results Follow-Up [facility] [address] [place] [address], [place] [address] Head Nurse: Makenzie Hess MD 12/25/2024 Telephone [facility] 4th Floor [address] [facility], [place] [address] Head Nurse: Archana Harmon MA 12/23/2024 Telephone [facility] [address]th [address] [place] [address], [place] [address] Head Nurse: Makenzie Hess MD 11/29/2024 Telephone [facility] 4th [address] [place] [address], [place] [address] Head Nurse: Makenzie Hess MD from Last 3 Months Social History Tobacco [...] Sign Reading Time Taken Comments Blood Pressure 119/77 02/13/2025 9:36 AM EDT Pulse 73 02/13/2025 9:36 AM EDT Temperature 36.9 C (98.4 F) 02/13/2025 9:36 AM EDT Respiratory Rate 18 02/13/2025 9:36 AM EDT Oxygen Saturation 97% 02/13/2025 9:3 6 AM EDT Inhaled Oxygen Concentration - - Weight 63.9 kg (140 lb 14 oz) 02/13/2025 9:36 AM EDT Height 157.2 cm (5' 1.89 ) 11/22/2023 1 1:00 AM EDT double CORNELIA Dye. Body Mass Index 25.86 11/22/2023 11:00 AM EDT Plan of Treatment Upcoming Encounters Date Type Department Care Team (Late Contact Info) Description 04/25/2025 11:00 AM EST Office Visit [facility] 4th Floor [address] [place] [address], [place] [phone] Head Nurse: Meredith Gonzalez MD [address] [place] [address] 07/09/2025 11:00 AM EST Office Visit [facility] 4th Floor [address] [place] [address], [place] [phone] Head Nurse: Meredith Gonzalez MD [address] [place] [address] 08/15/2025 8:45 AM EST Infusion [facility]fusion [facility] [address] [place] [address] Health Maintenance Due Date Last Done Comments [...] of Health Annual Screening 06/12/2024 Influenza Vaccine (#1) 2025 , 03/29/2017 DTaP,Tdap,and Td Vaccines (2 - Td or Tdap) 02/11/2031 02/11/2021 Pneumococcal Vaccine: 50+ Years Completed 11/10/2022 Hepatitis C Screening Completed 10/25/2023 Osteoporosis Screening Completed 12/19/2023 Hepatitis B Vaccines Aged Out No long er eligible based on patient's age to complete this topic Procedures * Due to [place] [employer] law, this organization might not be sharing negative HIV tests. Procedure Name Priority Date/Time Associated Diagnosis Comments [id number] B CELLS Routine 01/14/2025 10:2 9 AM EDT High risk medication use HEPATITIS C ANTIBODY W/REFLEX TO HCV RNA, QUANTITATIVE PCR Routine 10/25/2023 3:57 PM EDT Pemphigus vulgaris High risk medication use from Last 3 Months or Most Recently Relevant to Health Maintenance Results * Due to [place] state law, this organization might not be sharing negative HIV tests. * [id number] B Cells (01/14/2025 10:29 AM EDT) %CD20 7 6 - 23 % 01/14/2025 1:26 PM EDT [facility] %CD19 7 6 - 23 % 01/14/2025 1:26 PM EDT [facility] ASR Disclaimer Some of these tests were developed and their performance characteristics determined by the Hematopathology Laboratory at [facility]. They have not been cleared or approved by the Food and Drug Administration. The FDA has determined that such clearance or approval is not necessary. This test is used for clinical purposes. It should not be regarded as investigational or for research. This laboratory is certified under the Clinical Laboratory Improvement Amendments of 1988 (CLIA-88) as qualified to perform high complexity clinical laboratory testing. 01/14/2025 1:26 PM EDT [facility] Blood Structure of peripheral vein / Unknown Venipuncture / Unknown 01/14/2025 10:29 AM EDT 01/14/2025 10:29 AM EDT us Meredith Samayoa MD LAB FLOW CYTOMETRY ORDERAB LES Final Result [facility] [address] [place] [address], * Hepatitis C Antibody w/Reflex to HCV RNA, Quantitative PCR (10/25/2023 3:57 PM EDT) Hepatitis C Antibody NON-REACT WILFREDO NON-REACT WILFREDO 10/26/2023 2:[address] [facility] Comment: HCV antibody was non-reactive. There is no laboratory evidence of HCV infection. In most cases, no further action is required. However, if recent HCV exposure is suspected, a test for HCV RNA (test code 23246) is suggested. For additional information please refer to http://education.Toptal/faq/JJD69k0 (This link is being provided for informational/ educational purposes only.) Blood Structure of peripheral vein / Unknown 10/25/2023 3:57 PM EDT 10/25/2023 10:40 PM EDT Narrative [facility] - 10/28/2023 1:56 PM EDT FASTING:NO us Meredith Samayoa MD LAB BLOOD ORDERABLES Final Result [facility] [address] [facility] 3rd Floor, [place] [address], [employer] [facility] [address] [place] [address] from Last 3 Months or Most Recently Relevant to Health Maintenance Insurance [facility] [place] [address] MEDICARE Care Teams Enterprise Account Manager Relationship Specialty Start Date End Date Aurelia Blackmon [address] [place] [address] PCP - General Internal Medicine 10/16/23
== END 2025-02-26 15:43 | disposition home or self-care (01) ==
LOC: HO.ENCR 15:07
PROVIDERS: PCP Internal Medicine; Visit Provider Internal Medicine Endocrinology, Diabetes & Metabolism
DX: M81.0 Age-related osteoporosis without current pathological fracture (principal)
CPT/HCPCS: 99213

== ENCOUNTER → 2025-02-26 15:07 | Outpatient (BNVA) | payer MEDICARE, MEDICAID, SELFPAY | PROVIDERS: PCP Internal Medicine; Visit Provider Internal Medicine Endocrinology, Diabetes & Metabolism | DX: M81.0 Age-related osteoporosis without current pathological fracture (principal) | CPT/HCPCS: 96372; 99212; J3111 ==

== ENCOUNTER 2025-03-26 14:39 | Outpatient (AMB) | payer MEDICARE, MEDICAID, SELFPAY ==
--- NOTE | 2025-03-26 15:02 | AM.OFFVISNUR ---
Intake Visit Reasons: Evenity #7 Allergies No Known Allergies (No Known Allergies*) Allergy (Verified 02/26/25 15:19) Office Meds romosozumab-aqqg 210 mg/2.34 mL(105 mg/1.17 mL x2)subcutaneous syringe Performing Provider: Tonny Weber MD Performing Location: [facility] Endocrinology Administered by: Soledad Lao RN on 03/26/25 15:02 Dose Route Admin Location Dispensed Lot Number Expiration Date [place] Telephone Order Clerk 210 mg subcut bilateral upper arms 2.34 mL [id number] 05/11/27 60875-169-25 [facility] Total Dispensed Waste 2.34 mL 0 % Comments: Pt accompanied by daughter who interpreted visit. Pt declined correctional case manager. No adverse reactions reported from previous injection. Pt tolerated injection well. Pt scheduled in 4 weeks for next appt. No further questions at this time. Assessment & Plan Assessment & Plan Orders: Orders AMB Romosozumab Injection Patient Supplied Today M81.0 - Age-related osteoporosis without current pathological fracture Coding
--- OUTSIDE RECORDS SUMMARY | 2025-03-26 18:22 | XMS_ITS | Encounter Summary ---
Author Organization [facility] Address [address] [place] [address] Care Team Providers Care Fisher Trap Name Role Phone Aurelia Blackmon Primary Care Provider [phone] Encounter Details Date Type Department Care Team (Late st Contact Info) Description 02/18/2025 myChart Message [facility] [address]th [address] [place] [address], [place] [phone] Plant Maintenance Manager: Meredith Gonzalez MD [address] [place] [address] Ruthie Klein ez Social History Tobacco Use [...] Description 04/25/2025 11:00 AM EST Office Visit [facility] [address]th [address] [place] [phone] Plant Maintenance Manager: Meredith Gonzalez MD [address] [place] [address] 07/09/2025 11:00 AM EST Office Visit [facility] 4th [address] [place] [address], [place] [address] Plant Maintenance Manager: Meredith Gonzalez MD [address] [place] [address] 08/15/2025 8:45 AM EST Infusion [facility] [address] [place] [address] documented as of this encounter Visit Diagnoses Not on filedocumented in this encounter Care Teams Fisher Trap Relationship Specialty Start Date End Date Aurelia Blackmon [address] [place] [address] [phone] PCP - General Internal Medicine 10/16/23 documented as of this encounter
--- OUTSIDE RECORDS SUMMARY | 2025-03-26 18:22 | XMS_ITS | Encounter Summary ---
Author Organization [employer] Address 75 [facility] 7 [place] [address] Care Team Providers Care Match Marker Name Role Phone Carlotta Szymanski Primary Care Provider [phone] Encounter Details Date Type Department Care Team (Late st Contact Info) Description 07/29/2022 Telephone [facility] MEDICINE [address] [place] [address] Carlotta Szymanski FNP [address] [place] [address] Social History Tobacco Use Types Packs/Day Years [...] Care Team (Late st Contact Info) Description 05/16/2025 9:30 AM EST Office Visit [facility] MEDICINE [address] [place] [address] [phone] Carlotta Szymanski FNP [address] [place] [address] documented as of this encounter Visit Diagnoses Not on filedocumented in this encounter Care Teams Match Marker Relationship Specialty Start Date End Date Carlotta Szymanski FNP [address] [place] [address] PCP - General Family Medicine 02/08/22 documented as of this encounter
--- OUTSIDE RECORDS SUMMARY | 2025-03-26 18:22 | XMS_ITS | Encounter Summary ---
Author Organization [employer] Address 75 [facility] 7t [place] [address] Care Team Providers Care Spare Hand Name Role Phone [place] [facility] Primary Care Provider [phone] Reason for Visit * Reason Comments Med Refill Encounter Details Date Type Department Care Team ([facility] st Contact Info) Description 12/02/2023 Refill [facility] MEDICINE [address] [place], [place] [phone] [facility] [address] [place] [address] Social History Tobacco Use Types Packs/Day Years [...] Description 05/16/2025 9:30 AM EST Office Visit [facility] MEDICINE [address] [place] [address] Carlotta Szymanski FNP [address] [place] [address] documented as of this encounter Visit Diagnoses Not on filedocumented in this encounter Additional Health Concerns Assessment Noted Time PHQ-9 Depression Total Score: 0 05/12/20 23 1:22 PM EST documented as of this encounter Care Teams Spare Hand Relationship Specialty Start Date End Date Carlotta Szymanski FNP [address] [place] [address] PCP - General Family Medicine 02/08/22 documented as of this encounter
--- OUTSIDE RECORDS SUMMARY | 2025-03-26 18:22 | XMS_ITS | Encounter Summary ---
Author Organization [employer] Address 75 [facility] 7 [place] [address] Care Team Providers Care Terminal System Operator Name Role Phone Carlotta Szymanski GRAIN CLEANER AND TRANSFER OPERATOR Primary Care Provider [phone] Reason for Visit * Reason Comments Med Refill Encounter Details Date Type Department Care Team ([facility] Contact Info) Description 07/03/2023 Refill [facility]EDS [address] [place] [address] Aurelia Blackmon MD [address] [place] [address] Pemphigus vulgaris Social History Tobacco Use Types [...] Description 05/16/2025 9:30 AM EST Office Visit [facility] MEDICINE [address] [place] [address] Carlotta Szymanski FNP [address] [place] [address] documented as of this encounter Visit Diagnoses Diagnosis Pemphigus vulgaris (HCC) Pemphigus documented in this encounter Additional Health Concerns Assessment Noted Time PHQ-9 Depression Total Score: 0 05/12/20 23 1:22 PM EST documented as of this encounter Care Teams Terminal System Operator Relationship Specialty Start Date End Date Carlotta Szymanski FNP [address] [place] [address] PCP - General Family Medicine 02/08/22 documented as of this encounter
--- OUTSIDE RECORDS SUMMARY | 2025-03-26 18:22 | XMS_ITS | Encounter Summary ---
Author Organization [employer] Address 75 [facility] 7t [place] [address] Care Team Providers Care Airplane Pilot Commercial Name Role Phone Carlotta Szymanski MECHANICAL SPECIALIST Primary Care Provider [phone] Encounter Details Date Type Department Care Team ([facility] st Contact Info) Description 01/22/2024 Orders Only [facility] CH[facility] MED & PEDS [address] [place] [address] Aurelia Blackmon MD [address] [place] [address] Other osteoporosis without current pathological fracture (Primary [...] Description 05/16/2025 9:30 AM EST Office Visit [facility] MEDICINE [address] [place] [address] Carlotta Szymanski FNP 230 [place] [address] documented as of this encounter Visit Diagnoses Diagnosis Other osteoporosis without current pathological fracture- Primary documented in this encounter Additional Health Concerns Assessment Noted Time PHQ-9 Depression Total Score: 0 05/12/20 23 1:22 PM EST documented as of this encounter Care Teams Airplane Pilot Commercial Relationship Specialty Start Date End Date Carlotta Szymanski FNP [address] [place] [address] PCP - General Family Medicine 02/08/22 documented as of this encounter
--- OUTSIDE RECORDS SUMMARY | 2025-03-26 18:22 | XMS_ITS | Encounter Summary ---
Author Organization [employer] Address 75 [facility] 7 [place] [address] Care Team Providers Care Field Adjuster Name Role Phone Carlotta Szymanski SUPERVISOR SEWER SYSTEM Primary Care Provider [phone] Reason for Visit * Reason Onset Date Comments Med Refill 05/07/2024 Encounter Details Date Type Department Care Team ([facility] st Contact Info) Description 05/07/2024 Refill [facility] CHC MED & PEDS [address] [place] [address] Aurelia Blackmon MD 505 [place] [address] Pemphigus vulgaris; Dry skin Social History Tobacco [...] Description 05/16/2025 9:30 AM EST Office Visit [facility] MEDICINE [address] [place] [address] [facility] [address] [place] [address] documented as of this encounter Visit Diagnoses Diagnosis Pemphigus vulgaris (HCC) Pemphigus Dry skin Other symptoms involving skin and integumentary tissues documented in this encounter Additional Health Concerns Assessment Noted Time PHQ-9 Depression Total Score: 0 05/12/20 23 1:22 PM EST documented as of this encounter Care Teams Field Adjuster Relationship Specialty Start Date End Date [place] [facility] [address] [place] [address] PCP - General Family Medicine 02/08/22 documented as of this encounter
--- OUTSIDE RECORDS SUMMARY | 2025-03-26 18:22 | XMS_ITS | Encounter Summary ---
Author Organization [employer] Address 75 [facility] 7 [place] [address] Care Team Providers Care Automotive Service Consultant Name Role Phone [place] [facility] Primary Care Provider [phone] Reason for Visit * Reason Onset Date Comments ER Follow-up 09/20/2022 Encounter Details Date Type Department Care Team ([facility] st Contact Info) Description 09/20/2022 Telephone [facility] MEDICINE [address] [place] [address] [place] [facility] [address] [place], [place] [phone] ER Follow-up Social History Tobacco Use Types [...] to report ED visit on 09/20/22 at [facility]. Diagnosed with pain. Patient advised will forward to team nurse for follow up. documented in this encounter Plan of Treatment Upcoming Encounters Date Type Department Care Team (Late st Contact Info) Description 05/16/2025 9:30 AM EST Office Visit [facility] MEDICINE [address] [place], [place] [phone] Carlotta Szymanski FNP [address] [place], [place] [phone] documented as of this encounter Visit Diagnoses Not on filedocumented in this encounter Care Teams Automotive Service Consultant Relationship Specialty Start Date End Date Carlotta Szymanski FNP [address] [place] [address] PCP - General Family Medicine 02/08/22 documented as of this encounter
--- OUTSIDE RECORDS SUMMARY | 2025-03-26 18:22 | XMS_ITS | Encounter Summary ---
Author Organization [employer] Address [address] [facility] [address] 7t [place] [address] Care Team Providers Care Business Education Instructor Name Role Phone Carlotta Szymanski DRAFTSPERSON Primary Care Provider [phone] Encounter Details Date Type Department Care Team ([facility] Contact Info) Description 06/08/2023 Orders Only [facility] MED & PEDS [address] [place] [address] Aurelia Blackmon MD [address] [place] [address] Social History Tobacco Use Types Packs/Day Years [...] 05/16/2025 9:30 AM EST Office Visit [facility] 230 [place] [address] Carlotta Szymanski FNP 230 [place] [address] documented as of this encounter Visit Diagnoses Not on filedocumented in this encounter Additional Health Concerns Assessment Noted Time PHQ-9 Depression Total Score: 0 05/12/20 23 1:22 PM EST documented as of this encounter Care Teams Business Education Instructor Relationship Specialty Start Date End Date Carlotta Szymanski FNP [address] [place] [address] PCP - General Family Medicine 02/08/22 documented as of this encounter
--- OUTSIDE RECORDS SUMMARY | 2025-03-26 18:22 | XMS_ITS | Encounter Summary ---
Author Organization [employer] Address 75 [facility] 7t [place] [address] Care Team Providers Care Wax Machine Operator Name Role Phone [facility] Primary Care Provider [phone] Reason for Visit * Reason Onset Date Comments Appointment Request 02/06/2024 Encounter Details Date Type Department Care Team ([facility] st Contact Info) Description 02/06/2024 Telephone [facility] MEDICINE [address] [place], [place] [phone] [place] 230 [place] [address] Appointment Request Social History Tobacco Use Types [...] call for appt. Please contact pt at [phone]. documented in this encounter Plan of Treatment Upcoming Encounters Date Type Department Care Team (Late st Contact Info) Description 05/16/2025 9:30 AM EST Office Visit [facility] MEDICINE [address] [place] [address] Carlotta Szymanski FNP [address] [place] [address] documented as of this encounter Visit Diagnoses Not on filedocumented in this encounter Additional Health Concerns Assessment Noted Time PHQ-9 Depression Total Score: 0 05/12/20 23 1:22 PM EST documented as of this encounter Care Teams Wax Machine Operator Relationship Specialty Start Date End Date Carlotta Szymanski FNP [address] [place] [address] PCP - General Family Medicine 02/08/22 documented as of this encounter
--- OUTSIDE RECORDS SUMMARY | 2025-03-26 18:22 | XMS_ITS | Clinical Summary ---
Author Organization [employer] Address 75 [facility] 7t [place] [address] Care Team Providers Care Implement Mechanic Name Role Phone Carlotta Szymanski BRUSH MACHINE SETTER Primary Care Provider [phone] Allergies No known active allergies Medications cetirizine [...] halobetasol (UltraVATE) 0.05 % ointmentIndicatio ns:Pemphigus vulgaris (HCC) Apply topically 2 times daily. 50 g 2 10/15/19 23 Active triamcinolone (Kenalog) 0.1 % creamIndications: Pemphigus vulgaris (HCC) Apply topically if needed in the morning and at bedtime (pain and swelling). 453 g 1 12/07/19 23 Active lidocaine (Xylocaine) 2 % solutionIndicatio ns:Pemphigus vulgaris (HCC) Take 15 mL by mouth every 3 (three) hours. 100 mL 2 03/07/20 23 Active omeprazole (PriLOSEC) [address] capsuleIndication s:Gastroesophagea l reflux disease without esophagitis Take 1 capsule (40 mg) by mouth before breakfast. Do not crush or chew. 30 capsule 07/04/19 24 Active YKQ-Grna-CsTnbd-M gHydr-Simeth (First-Mouthwash BLM) suspensionIndicat ions:Pemphigus vulgaris (HCC) USE 10 ML IN THE MOUTH OR [...] Hydrox-Lidocaine viscous (MAGIC MouthWASH) suspensionIndicat ions:Pemphigus vulgaris (HCC) Use 15 mL in the mouth or [...] 026 Active cholecalciferol (Vitamin D-3) 50 MCG (1999 UT) capsuleIndication s:Other osteoporosis without current pathological fracture [...] Active betamethasone, augmented, (Diprolene) 0.05 % gelIndications:Pe mphigus vulgaris (HCC) APPLY TOPICALLY TO ULCER OF THE LEFT CHEEK TWICE DAILY 15 g 09/27/19 25 Active Active Problems Problem Noted Date Diagnosed Date Immunocompromised patient 06/19/2024 Other osteoporosis without current pathological fracture 01/22/2024 Healthcare maintenance 02/22/2023 Overview (02/22/2023): Mammo: December 2021 Pap: December 2021 at [facility] C-scope: Colonoscopy and endoscopy at [facility] 2022 BMD: 2021, need records Mixed hyperlipidemia [...] high in fiber. Review available resources on https://www.heart.org/en/health-topics/cholesterol/wcybljuuktu-nkgou-vhn-resourc es to learn more about lifestyle management. [...] Encounters Date Type Department Care Team Description 03/21/2025 Telephone [facility] MEDICINE [address] [place] [address] Carlotta Szymanski FNP Nurse Triage from Last 3 Months Immunizations Immunization Administration Dates Next Due Influenza [...] Description 05/16/2025 9:30 AM EST Office Visit [facility] 230 [place], [place] [phone] [facility], [facility] 230 [place], [place] [phone] Health Maintenance Due Date Last Done Comments [...] 8:42 AM EST) Triglycerides 60 <150 mg/dL [facility] Comment:Desirable Triglyceri de: less than 150 mg/dLBorderline High Triglyceride 150-199 mg/dLHigh Triglyceride: 200-499 mg/dLVery High Triglyceride: greater than or equal to 5OO mg/dL Cholesterol 178 <200 mg/dL [facility] Comment:Desirable Cholestero l: less than 200 mg/dLBorderline High Cholesterol: 200-239 mg/dLHigh Cholesterol: greater than 239 mg/dL LDL Cholesterol Calculated 101(H) <100 mg/dL [facility] Comment:Desirable LDL: less than 100 mg/dLNear Optimal/Above Optimal LDL: 110- 129 mg/dLBorderline High LDL: 130-159 mg/dLHigh LDL: 160-189 mg/dLVery High LDL: greater than or equal to 190 mg/dL HDL Cholesterol 65 >40 mg/dL [facility] Comment:Desirable HDL: great er than 40 mg/dL Note: This HDL assay may give artificially low results in patients with liver disease. 07/04/2023 8:42 AM EST 07/04/2023 11:24 AM EST [facility] BRUSH MACHINE SETTER LAB BLOOD ORDERABLES Final Re sult [facility] [address] [place] [phone] * Hm Colonoscopy (10/05/2022) Colonoscopy Normal [...] Legacy Procedure: Mammography Report 1 Lenora Fabian BRUSH MACHINE SETTER IMG BI PROCEDURES Final Result * HPV mRNA E6/E7 (03/29/2017 3:50 PM EDT) HPV mRNA E6/E7 Not Detected NOT DETECTED [facility] Comment: This test was performed using the APTIMA(R) HPV Assay ([employer] This assay detects E6/E7 viral messenger RNA (mRNA) from 14 high-risk HPV types (16,18,31,33,35,39,45,51, 52,56,58,59,66,68). For additional information please refer to: http://education.Robotgalaxy/faq/RUQ666v0 (This link is being provided for informational/ educational purposes only.) Test Performed by [employer]Tamiko, [facility], [address] [place] [address] Ronak Farah M.D., Ph.D., Director of Laboratories , [place] [id number] Please note: Effective 02/22/2016, HPV testing will be performed using [employer]'s APTIMA test which targets mRNA. Detecting mRNA instead of DNA, as in older methods, offers significant improvements in specificity. 03/29/2017 3:50 PM EDT us Shital Casas CNM HISTORICAL/NON ORDERABLE LABS Final Result [facility] Formerly [facility] Anywhere [address] from Last 3 Months or Most Recently Relevant to Health Maintenance Insurance [facility] STANDARD MEDICARE Care Teams Implement Mechanic Relationship Specialty Start Date End Date [place] BRUSH MACHINE SETTER [address] [place] [address] PCP - General Family Medicine 02/08/22
--- OUTSIDE RECORDS SUMMARY | 2025-03-26 18:22 | XMS_ITS | Encounter Summary ---
Author Organization [employer] Address 75 [facility] 7 [place] [address] Care Team Providers Care Family Services Specialist Name Role Phone Stephon [facility] Primary Care Provider [phone] Encounter Details Date Type Department Care Team ([facility] Contact Info) Description 03/08/2023 Orders Only [facility] CHC MED & PEDS 505 [place] [address] Aurelia Blackmon MD 505 [place] [address] Pemphigus vulgaris (Primary Dx) Social History Tobacco [...] Team ([facility] Contact Info) Description 05/16/2025 9:30 AM EST Office Visit [facility] MEDICINE 230 [place], [place] [phone] Carlotta Szymanski FNP 230 [place] [address] documented as of this encounter Visit Diagnoses Diagnosis Pemphigus vulgaris (HCC)- Primary Pemphigus documented in this encounter Additional Health Concerns Assessment Noted Time PHQ-9 Depression Total Score: 0 11/11/19 23 1:09 PM EDT documented as of this encounter Care Teams Family Services Specialist Relationship Specialty Start Date End Date Carlotta Szymanski FNP [address] [place] [address] PCP - General Family Medicine 02/08/22 documented as of this encounter
--- OUTSIDE RECORDS SUMMARY | 2025-03-26 18:22 | XMS_ITS | Encounter Summary ---
Author Organization [employer] Address 75 [facility] 7t [place] [address] Care Team Providers Care Recycle Driver Name Role Phone [facility] Primary Care Provider [phone] Reason for Visit * Reason Onset Date Comments Nurse Triage 03/21/2025 Encounter Details Date Type Department Care Team ([facility] st Contact Info) Description 03/21/2025 Telephone [facility] 230 [place], [place] [phone] [place] [facility] 230 [place], [place] [phone] Nurse Triage Social History Tobacco Use Types Packs/Day Years [...] encounter Miscellaneous Notes * Telephone Encounter - Hannah Pang RN - 03/21/2025 1:59 PM EDT Telephone call placed to pt. Daughter Jasvir on HIPAA answered who reports that pt has Pemphigus vulgaris for which she is seen by [facility] dermatology and receives infusions. Pt currently has sores inher mouth from the pemphigus vulgaris. She reports pt had sores last month as well and that [facility] derm sent prednisone and magic mouthwash but now are saying that she needs to contact PCP to get labs. Informed I would call center support representative and will call her back Telephone call placed to [facility] Derm. Spoke with Lyndsey who reports pt had an infusion 02/13/25 and infusions are Q6 months. Next one is scheduled for 08/15/25. She reports no note about pt having to contact PCP for labs. She will send message to school librarian letting them know about pt's mouth sores reoccurring and see what POC is. Telephone call returned to Jasvir. Informed that no note that pt needs labs from us and that Rachael is going to talk to the school librarian and see what plan is. Jasvir confused as she reports that they called her to tell her about needing labs from PCP. Advised to follow up with them. If mom needs to be seen urgently or they don't send refill on prednisone for whatever reason, bring pt to [facility]. Jasvir agrees with disposition. * Telephone Encounter - Imer Jon - 03/21/2025 12:18 PM EDT Symptom: Mouth Sores or Ulcers - Caller Reports Outcome: Schedule an urgent appointment (within 1 hour) or talk to a nurse or provider soon Reason: Severe pain now The caller accepted this outcome. Contact daughter [phone] (turkish) documented in this encounter Plan of Treatment Upcoming Encounters Date Type Department Care Team (Late st Contact Info) Description 05/16/2025 9:30 AM EST Office Visit [facility] [address] [place] [address] Carlotta Szymanski FNP [address] [place] [address] documented as of this encounter Visit Diagnoses Not on filedocumented in this encounter Additional Health Concerns Assessment Noted Time PHQ-9 Depression Total Score: 0 06/19/19 25 10:13 AM EST documented as of this encounter Care Teams Recycle Driver Relationship Specialty Start Date End Date Carlotta Szymanski FNP [address] [place] [address] PCP - General Family Medicine 02/08/22 documented as of this encounter
--- OUTSIDE RECORDS SUMMARY | 2025-03-26 18:22 | XMS_ITS | Encounter Summary ---
Author Organization [employer] Address 75 [facility] 7 [place] [address] Care Team Providers Care Hand Bootmaker Name Role Phone Stephon, [facility] Primary Care Provider [phone] Reason for Visit * Reason Onset Date Comments Reschedule 05/01/2023 Encounter Details Date Type Department Care Team ([facility] st Contact Info) Description 05/01/2023 Telephone [facility] MEDICINE [address] [place] [address] [facility] 230 [place] [address] Reschedule Social History Tobacco Use Types Packs/Day [...] with others, in a hotel, in a correction, living outside on the street, on a [...] 04/25 derm appointment. Please contact pt at [phone] (Faroese) documented in this encounter Plan of Treatment Upcoming Encounters Date Type Department Care Team (Late st Contact Info) Description 05/16/2025 9:30 AM EST Office Visit [facility] MEDICINE [address] [place] [address] Carlotta Szymanski FNP [address] [place] [address] documented as of this encounter Visit Diagnoses Not on filedocumented in this encounter Additional Health Concerns Assessment Noted Time PHQ-9 Depression Total Score: 0 11/11/19 1:09 PM EDT documented as of this encounter Care Teams Hand Bootmaker Relationship Specialty Start Date End Date Carlotta Szymanski FNP [address] [place] [address] PCP - General Family Medicine 02/08/22 documented as of this encounter
--- OUTSIDE RECORDS SUMMARY | 2025-03-26 18:22 | XMS_ITS | Encounter Summary ---
Author Organization [employer] Address 75 [facility] 7 [place] [address] Care Team Providers Care Speech Pathologist Assistant Name Role Phone Carlotta Szymanski SIFTING OPERATOR Primary Care Provider [phone] Reason for Visit * Reason Comments Med Refill Encounter Details Date Type Department Care Team ([facility] Contact Info) Description 03/23/2024 Refill [facility] CHC MED & PEDS [address] [place] [address] Aurelia Blackmon MD [address] [place] [address] Gastroesophageal reflux disease without esophagitis Social History [...] Description 05/16/2025 9:30 AM EST Office Visit [facility] MEDICINE 230 [place] [address] Carlotta Szymanski FNP 230 [place] [address] documented as of this encounter Visit Diagnoses Diagnosis Gastroesophageal reflux disease without esophagitis Esophageal reflux documented in this encounter Additional Health Concerns Assessment Noted Time PHQ-9 Depression Total Score: 0 05/12/20 23 1:22 PM EST documented as of this encounter Care Teams Speech Pathologist Assistant Relationship Specialty Start Date End Date Carlotta Szymanski FNP 230 [place] [address] PCP - General Family Medicine 02/08/22 documented as of this encounter
--- OUTSIDE RECORDS SUMMARY | 2025-03-26 18:22 | XMS_ITS | Encounter Summary ---
Author Organization [employer] Address 75 [facility] 7 [place] [address] Care Team Providers Care Personnel Recruiter Name Role Phone Carlotta Szymanski ASSOCIATE ENTERTAINMENT EDITOR Primary Care Provider [phone] Reason for Visit * Reason Comments Med Refill Encounter Details Date Type Department Care Team ([facility] Contact Info) Description 04/03/2023 Refill [facility] CHC MED & PEDS [address] [place] [address] Aurelia Blackmon MD 505 [place] [address] Social History Tobacco Use Types Packs/Day Years [...] with others, in a hotel, in a half-way, living outside on the street, on a [...] Description 05/16/2025 9:30 AM EST Office Visit [facility] MEDICINE 230 [place] [address] Carlotta Szymanski FNP [address] [place] [address] documented as of this encounter Visit Diagnoses Not on filedocumented in this encounter Additional Health Concerns Assessment Noted Time PHQ-9 Depression Total Score: 0 11/11/19 23 1:09 PM EDT documented as of this encounter Care Teams Personnel Recruiter Relationship Specialty Start Date End Date Carlotta Szymanski FNP [address] [place] [address] PCP - General Family Medicine 02/08/22 documented as of this encounter
--- OUTSIDE RECORDS SUMMARY | 2025-03-26 18:22 | XMS_ITS | Encounter Summary ---
Author Organization [employer] Address 75 [facility] 7t [place] [address] Care Team Providers Care Salesforce Trainer Name Role Phone Carlotta Szymanski MEDICAID SERVICE COORDINATOR Primary Care Provider [phone] Encounter Details Date Type Department Care Team ([facility] st Contact Info) Description 07/26/2023 Orders Only [facility] CHC MED & PEDS 505 [place] [address] Aurelia Blackmon MD 505 [place] [address] Pemphigus vulgaris (Primary Dx) Social History Tobacco [...] Description 05/16/2025 9:30 AM EST Office Visit [facility] MEDICINE 230 [place] [address] Carlotta Szymanski FNP 230 [place] [address] documented as of this encounter Visit Diagnoses Diagnosis Pemphigus vulgaris (HCC)- Primary Pemphigus documented in this encounter Additional Health Concerns Assessment Noted Time PHQ-9 Depression Total Score: 0 05/12/20 23 1:22 PM EST documented as of this encounter Care Teams Salesforce Trainer Relationship Specialty Start Date End Date Carlotta Szymanski FNP [address] [place] [address] PCP - General Family Medicine 02/08/22 documented as of this encounter
--- OUTSIDE RECORDS SUMMARY | 2025-03-26 18:22 | XMS_ITS | Encounter Summary ---
Author Organization [employer] Address 75 [facility] 7 [place] [address] Care Team Providers Care Forming Yardage Control Operator Name Role Phone Carlotta Szymanski WARD NURSE Primary Care Provider [phone] Reason for Visit * Reason Comments Med Refill Encounter Details Date Type Department Care Team ([facility] Contact Info) Description 07/03/2023 Refill [facility] CHC MED & PEDS 505 [place] [address] Aurelia Blackmon MD 505 [place] [address] Pemphigus vulgaris Social History Tobacco Use Types [...] Description 05/16/2025 9:30 AM EST Office Visit [facility] MEDICINE 230 [place] [address] Carlotta Szymanski FNP [address] [place] [address] documented as of this encounter Visit Diagnoses Diagnosis Pemphigus vulgaris (HCC) Pemphigus documented in this encounter Additional Health Concerns Assessment Noted Time PHQ-9 Depression Total Score: 0 05/12/20 23 1:22 PM EST documented as of this encounter Care Teams Forming Yardage Control Operator Relationship Specialty Start Date End Date Carlotta Szymanski FNP [address] [place] [address] PCP - General Family Medicine 02/08/22 documented as of this encounter
--- OUTSIDE RECORDS SUMMARY | 2025-03-26 18:22 | XMS_ITS | Clinical Summary ---
Author Organization [facility] Address [address] [place] [address] Care Team Providers Care Lumber Piler Name Role Phone Aurelia Blackmon Primary Care Provider Allergies No known active allergies Medications magic mouthwash (lidocaine-maalo x-diphenhydrAMIN E) 1:1:1 4 Active amLODIPine (NORVASC) 10 mg tablet SMARTSI Tablet(s) By Mouth Daily Active betamethasone, augmented, (DIPROLENE) 0.05 % gel SMARTSIG:Topic al Twice Daily Active halobetasol (ULTRAVATE) 0.05 % ointment SMARTSIG:Topic al Twice Daily 3 Active hydrOXYzine (VISTARIL) 25 [...] pravastatin (PRAVACHOL) 10 mg tablet 4 Active Sudafed 30 mg tablet Take 30 mg by mouth every 4 hours as needed. 4 Active rosuvastatin (CRESTOR) 10 mg tablet 3 Active sucralfate (CARAFATE) 1 gram tablet SMARTSI Tablet(s) By Mouth Twice Daily 3 Active triamcinolone acetonide (KENALOG) 0.1% cream SMARTSIG:Topic [...] as instructed 60 tablet 3 4 Active magic mouthwash (lidocaine-maalo x-diphenhydrAMIN E) 1:1:1 4 Active naproxen 500 mg tablet Take 500 mg by mouth. 4 Active lidocaine w/ preservative (XYLOCAINE) 2% (20 mg/mL) injection Take 15 mL by mouth every 3 (three) hours. 3 Active alendronate (FOSAMAX) 70 mg tablet SMARTSI Tablet(s) By Mouth Once a Week Active mycophenolate (CELLCEPT) 500 mg tabletIndication s:Pemphigus vulgaris Take 1 tablet (500 mg total) by mouth 2 times a day. 60 tablet 3 4 Active amitriptyline (ELAVIL) 10 mg tablet Take 10 mg by mouth. 5 06/19/19 26 Active cholecalciferol (VITAMIN D3) 2,000 unit capsule Take 50 mcg by mouth daily. 5 06/19/19 26 Active Evenity 210mg/2.34mL ( 105mg/1.17mLx2) syringe 5 Active amLODIPine (NORVASC) 10 mg tablet Take 1 tablet by mouth once a day. 4 Active levothyroxine (SYNTHROID, LEVOTHROID) 25 mcg tablet TAKE 1 TABLET(25 MCG) BY MOUTH BEFORE BREAKFAST 5 Active Linzess 290 mcg SMARTSI Capsule(s) By Mouth Every Morning 5 Active triamcinolone acetonide (KENALOG) 0.1% creamIndications :Pemphigus vulgaris Apply to affected area on skin twice daily as needed 454 g 1 5 Active miracle mouthwash (maalox-lidocain v-ougxhdpr-fvvai nhydrAMINE) 1:1:1:1Indicatio ns:Pemphigus vulgaris Swish and spit 4 mL up to 4 times daily as needed for sores in mouth. Do not swallow medication. 100 mL 1 5 Active predniSONE (DELTASONE) 10 mg tabletIndication s:Pemphigus vulgaris Take 4 tablets (40 mg total) by mouth once a day for 10 days, THEN 3 tablets (30 mg total) once a day for 5 days, THEN 2 tablets (20 mg total) once a day for 5 days, THEN 1 tablet (10 mg total) once a day for 5 days. Take tablets in the MORNING. 70 tablet 5 03/16/20 25 Active Problems Problem Noted Date Diagnosed Date Pemphigus vulgaris 10/31/2023 Overview (10/31/2023): Pemphigus, failed prednisone and cellcept, refractory oral lesions Encounters Date Type Department Care Team Description 02/19/2025 Telephone [facility] 2nd Floor [address], Second Floor [place], [place] [phone] Job Coaching: Meredith Gonzalez MD 02/18/2025 myChart Message [facility] 4th Floor [address], [place] [phone] Job Coaching: Meredith Gonzalez MD Celeste de B ez 02/13/2025 9:45 AM EDT Infusion [facility] [address] [place] [address] Lubna Naik, Dayanna Madera RN Pemphigus vulgaris (Primary Dx) 02/07/2025 Orders Only [facility] [address] [place] [phone] Job Coaching: Meredith Gonzalez MD 02/04/2025 Telephone [facility] [address] [place] [phone] Job Coaching: Makenzie Hess MD PAC Clinical Questions 02/02/2025 myChart Message [facility] [address] [place] [phone] Job Coaching: Anabel Vazquez MD Need infusi n 01/24/2025 Results Follow-Up [facility] [address] [place] [phone] Job Coaching: Makenzie Hess MD 12/25/2024 Telephone [facility] [address] [place] [phone] Job Coaching: Archana Harmon MA from Last 3 Months Social History Tobacco [...] ) 11/22/2023 1 1:00 AM EDT double RN Marnie. Body Mass Index 25.86 11/22/2023 11:00 AM EDT Plan of Treatment Upcoming Encounters Date Type Department Care Team (Late st Contact Info) Description 04/25/2025 11:00 AM EST Office Visit [facility] 4th Floor [address] [place] [address] [phone] Job Coaching: Meredith Gonzalez MD [address] [place] [address] 07/09/2025 11:00 AM EST Office Visit [facility] 4th Floor [address] [place] [phone] Job Coaching: Meredith Gonzalez MD [address] [place] [address] 08/15/2025 8:45 AM EST Infusion [facility] [address] [place] [address] Health Maintenance Due Date Last Done Comments [...] this topic Procedures * Due to [place] Leap[employer] law, this organization might not be sharing negative HIV tests. Procedure Name Priority Date/Time Associated Diagnosis Comments [id number] B CELLS Routine 01/14/2025 10:2 9 AM EDT High risk medication use HEPATITIS C ANTIBODY W/REFLEX TO HCV RNA, QUANTITATIVE PCR Routine 10/25/2023 3:57 PM EDT Pemphigus vulgaris High risk medication use from Last 3 Months or Most Recently Relevant to Health Maintenance Results * Due to [place] Leap[employer] law, this organization might not be sharing negative HIV tests. * [id number] B Cells (01/14/2025 10:29 AM EDT) %CD20 7 6 - 23 % 01/14/2025 1:26 PM EDT [facility] %CD19 7 6 - 23 % 01/14/2025 1:26 PM EDT [facility] ASR Disclaimer Some of these tests were developed and their performance characteristics determined by the Hematopathology Laboratory at [facility]. They have not been cleared or approved [...] clinical laboratory testing. 01/14/2025 1:26 PM EDT [facility] Blood Structure of peripheral vein / Unknown Venipuncture / Unknown 01/14/2025 10:29 AM EDT 01/14/2025 10:29 AM EDT Meredith Samayoa MD LAB FLOW CYTOMETRY ORDERAB LES Final Result [facility] [address] [place] [address], * Hepatitis C Antibody w/Reflex to HCV RNA, Quantitative PCR (10/25/2023 3:57 PM EDT) Hepatitis C Antibody NON-REACT WILFREDO NON-REACT WILFREDO 10/26/2023 2:19 AM EDT [facility] Comment: HCV antibody was non-reactive. There is no laboratory evidence of HCV infection. In most cases, no further action is required. However, if recent HCV exposure is suspected, a test for HCV RNA (test code 27908) is suggested. For additional information please refer to http://education.DISKOVRe/faq/GWJ18d6 (This link is being provided for informational/ educational purposes only.) Blood Structure of peripheral vein / Unknown 10/25/2023 3:57 PM EDT 10/25/2023 10:40 PM EDT Narrative [facility] - 10/28/2023 1:56 PM EDT FASTING:NO Meredith Samayoa MD LAB BLOOD ORDERABLES Final Result [facility] [address] [facility] 3rd Floor, [place] [address], [place] [phone] [employer] [facility] [address] [place] [address] from Last 3 Months or Most Recently Relevant to Health Maintenance Insurance [facility] MEDICARE Care Teams Lumber Piler Relationship Specialty Start Date End Date Aurelia Blackmon [address] [place] [address] PCP - General Internal Medicine 10/16/23
--- OUTSIDE RECORDS SUMMARY | 2025-03-26 18:22 | XMS_ITS | Encounter Summary ---
Author Organization [employer] [facility] Address [address] 7t [place] [address] Care Team Providers Care Patient Care Director Name Role Phone Carlotta Szymanski TELEPHONE CLERK TELEGRAPH OFFICE Primary Care Provider [phone] Reason for Visit * Reason Comments Med Refill Encounter Details Date Type Department Care Team ([facility] st Contact Info) Description 03/23/2024 Refill [facility] [address] [place] [address] Tata Bullard MD [address] [place] [address] Primary hypertension Social History Tobacco Use Types [...] Visit [facility] MEDICINE [address] [place] [address] Carlotta Szymanski FNP [address] [place] [address] documented as of this encounter Visit Diagnoses Diagnosis Primary hypertension Unspecified essential hypertension documented in this encounter Additional Health Concerns Assessment Noted Time PHQ-9 Depression Total Score: 0 05/12/20 23 1:22 PM EST documented as of this encounter Care Teams Patient Care Director Relationship Specialty Start Date End Date Carlotta Szymanski FNP [address] [place] [address] PCP - General Family Medicine 02/08/22 documented as of this encounter
--- OUTSIDE RECORDS SUMMARY | 2025-03-26 18:22 | XMS_ITS | Encounter Summary ---
Author Organization [facility] Address [address] [place] [address] Care Team Providers Care Plug Sorter Name Role Phone Aurelia Blackmon Primary Care Provider Encounter Details Date Type Department Care Team (Late st Contact Info) Description 10/16/2023 Transcribe Orders [facility] [address] [place] [address] Aurelia Blackmon [address] [place] [address] Pemphigus vulgaris (Primary Dx) Social History Tobacco [...] Description 04/25/2025 11:00 AM EST Office Visit [facility] 4th Floor [address] [place] [address], Fourth [place] [phone] Energy Conservation Specialist: Meredith Gonzalez MD [address] [place] [address] 07/09/2025 11:00 AM EST Office Visit [facility] 4th Floor [address] [facility], Fourth [place] [phone] Energy Conservation Specialist: Meredith Gonzalez MD [address] [place] [address] 08/15/2025 8:45 AM EST Infusion [facility] [address] [place] [address] documented as of this encounter Visit Diagnoses Diagnosis Pemphigus vulgaris- Primary Pemphigus documented in this encounter Care Teams Plug Sorter Relationship Specialty Start Date End Date Aurelia Blackmon [address] [place] [address] PCP - General Internal Medicine 10/16/23 documented as of this encounter
--- OUTSIDE RECORDS SUMMARY | 2025-03-26 18:23 | XMS_ITS | Encounter Summary ---
Author Organization [employer] Address [address] [facility] 7t [place] [address] Care Team Providers Care Weeder Name Role Phone [facility] Primary Care Provider [phone] Reason for Visit * Reason Onset Date Comments Medication Question 05/16/2023 Encounter Details Date Type Department Care Team ([facility] st Contact Info) Description 05/16/[address] [facility] [address] [place], [place] [phone] Tripp [facility] [address] [place], [place] [phone] Medication Question Social History Tobacco Use Types [...] Description 05/16/2025 9:30 AM EST Office Visit [facility] [address] [place] [address] Carlotta Szymanski FNP [address] [place] [address] documented as of this encounter Visit Diagnoses Not on filedocumented in this encounter Additional Health Concerns Assessment Noted Time PHQ-9 Depression Total Score: 0 05/12/20 23 1:22 PM EST documented as of this encounter Care Teams Weeder Relationship Specialty Start Date End Date Carlotta Szymanski FNP [address] [place] [address] PCP - General Family Medicine 02/08/22 documented as of this encounter
== END 2025-03-26 14:59 | disposition home or self-care (01) ==
LOC: HO.ENCR 14:39
PROVIDERS: PCP Internal Medicine; Visit Provider Internal Medicine Endocrinology, Diabetes & Metabolism
DX: M81.0 Age-related osteoporosis without current pathological fracture (principal)

== ENCOUNTER → 2025-03-26 14:39 | Outpatient (BNVA) | payer MEDICARE, MEDICAID, SELFPAY | PROVIDERS: PCP Internal Medicine; Visit Provider Internal Medicine Endocrinology, Diabetes & Metabolism | DX: M81.0 Age-related osteoporosis without current pathological fracture (principal); Z79.620 Long term (current) use of immunosuppressive biologic | CPT/HCPCS: 96372; J3111 ==

== ENCOUNTER 2025-04-29 14:52 | Outpatient (AMB) | payer MEDICARE, MEDICAID, SELFPAY ==
--- OUTSIDE RECORDS SUMMARY | 2025-04-25 11:00 | XMS_ITS | Encounter Summary ---
Author Organization [facility] Address [address] [place] [address] Care Team Providers Care Senior Unix Administrator Name Role Phone Aurelia Blackmon Primary Care Provider [phone] Reason for Visit * Reason Comments Skin Problem Encounter Details Date Type Department Care Team (Late st Contact Info) Description 04/25/2025 11:00 AM EST Office Visit [facility] 4th Floor [address] [facility], [place] [address] Corporate Fitness Program Coordinator: Meredith Gonzalez MD [address] [place] [address] Pemphigus vulgaris (Primary Dx); High risk medication use; Capillaritis Social History Tobacco Use Types Packs/Day Years Used Date Smoking Tobacco: Unknown Comments Unknown Sex and Gender Information Value Date Recorded Sex Assigned at Female 06/05/2024 10:21 AM EST Legal Sex Female 11:06 AM EDT Gender Identity Female 06/05/2024 10:21 AM EST Sexual Orientation Straight 06/05/2024 10 :21 AM EST documented as of this encounter Progress Notes * Arminda Hardy MD - 04/25/2025 10:55 AM EST DERMATOLOGY FOLLOW UP OFFICE VISIT CHIEF COMPLAINT: Pemphigus vulgaris follow up HPI: Ruthie Delgado is a 69 y.o. female with medical history of Pemphigus Vulgaris (pdx 2022 at outside institution via punch biopsy, previously on Prednisone and mycophenolate mofetil, currently onRituximab) presenting to [facility] Department of Dermatology for follow up. Since last visit 11/12/2024, has continued Rituximab 500 mg every 6 months tolerating without adverseevent. Patient had infusion 05/2024, then given CD19 and CD20 11/2024 <3, labs repeated 01/2025 showing increase to 7% with plan for next infusion 02/2025. While awaiting infusion, endorsed moderate flare 02/19/2025 (several bullae near genitals for the first time, and a few on the thighs and legs).She completed the infusion but was still flaring so called for Prednisone, receiving 20 mg every other day for two weeks then 10 mg every other day for 2 weeks with resolution approx 3-4 weeks later.In general, feels as though she can go several months without flares but has had occasional flares after 3 months. For the body, continues to use triamcinolone 0.1% cream most days and for the mouth, continues to use MMW daily before eating and betamethasone gel with relief of blisters and ulcers. Does note that spicy foods, tart fruit and hard foods often cause a flare. In general, endorses improvement (approx 50%) since starting all treatments and improvement in quality of life, but still feels as though there is continued room for improvement. Of note: also with history of osteoporosis (dx 2023 with T-score -3.3, AP spine. No hx of fracture.Hx of fdc glucocorticoid use) [phone] Patient's son Vaughn--[phone] ALLERGIES No Known Allergies MEDICATIONS AND MEDICAL, SOCIAL, SURGICAL AND FAMILY HISTORIES All were reviewed in patient's chart. PHYSICAL EXAM GEN: well appearing, in no acute distress, pleasant and interactive SKIN: - ORAL MUCOSA: small white ovoid shallow erosion on the right lower mucosal lip (likely aphthous ulcer) - ABDOMEN, ARMS, BACK: several circular medium to dark brown patches (consistent with post inflammatory inflammation) and several areas of flesh colored ovoid/circular atrophic patches (scars) currently no active disease on clinical exam PDAI body: 0 PDAI oral/mouth: 0 ASSESSMENT AND PLAN # Pemphigus vulgaris, chronic, not at treatment goal # High risk medication use: Rituximab Patient with history of pemphigus vulgaris, s/p mycophenolate mofetil and Prednisone with moderate improvement, with day 1 and day 15 initial doses of Rituximab 1000 mg 11/2023, since continuing on Rituximab 500 mg q6 months with overall improvement though with occasional flare. Notable moderate flare 02/2025 in setting of pushing out infusion from 6 to 9 months in the setting of low CD19 and CD20 (11/2024), requiring infusion + low dose Prednisone taper. As a result, the following plan is recommended below. Dx History of positive hepatitis B core AB, positive surface AB, negative surface antigen indicating prior infection (is s/p hepatitis B booster vaccine as recommended by GI) Tx - for body : continue triamcinolone 0.1% cream daily as needed (refills provided) - for mouth: continue MMW daily and betamethasone 0.05% gel daily as needed - plan for next Rituximab infusion 08/2025 >> but will wait until clinic appointment 09/02/2025to decide on 1) degree of flare, if any 2) repeating CD19 and CD20 levels as well as CBC w/diff andCMP and 3) based on CD 19 and CD20 levels to decide if infusion should still occur in August versus moving it to September did discuss that if flares continuing relatively frequently, would consider addition of IVIG 2g/kg monthly # Capillaritis Patient with history of capillaritis, stable. Tx - recommend continuing triamcinolone cream as needed FOLLOW UP Return in about 4 months (around 2025) for Follow up Pemphigus Vulgaris (ok to use Pedi spot). Arminda Hardy MD, MS Dermatology Resident PGY- 3 documented in this encounter Plan of Treatment Upcoming Encounters Date Type Department Care Team (Late st Contact Info) Description 07/09/2025 11:00 AM EST Office Visit [facility] 4th Floor [address] [facility], [place] [address] Corporate Fitness Program Coordinator: Meredith Gonzalez MD [address] [place] [address] 08/15/2025 8:45 AM EST Infusion [facility] [address] [place] [address] 08/27/2025 11:15 AM EDT Office Visit [facility] 4th Floor [address] [facility], Fourth [place] [address] Corporate Fitness Program Coordinator: Meredith Gonzalez MD [address] [place] [address] documented as of this encounter Visit Diagnoses Diagnosis Pemphigus vulgaris- Primary Pemphigus High risk medication use Capillaritis Other and unspecified capillary diseases documented in this encounter Care Teams Senior Unix Administrator Relationship Specialty Start Date End Date Aurelia Blackmon [address] [place] [address] PCP - General Internal Medicine 10/16/23 documented as of this encounter
--- NOTE | 2025-04-29 15:26 | AM.OFFVISNUR ---
Intake Visit Reasons: Evenity #8 Allergies No Known Allergies (No Known Allergies*) Allergy (Verified 02/26/25 15:19) Office Meds romosozumab-aqqg 210 mg/2.34 mL(105 mg/1.17 mL x2)subcutaneous syringe Performing Provider: Tonny Weber MD [place] [facility] Administered by: Soledad Lao RN on 04/29/25 15:18 Dose Route Admin Location Dispensed Lot Number Expiration Date [facility] [employer] 210 mg subcut 2.34 mL [id number] 09/10/27 73330-913-55 [facility] Total Dispensed Waste 2.34 mL 0 % Comments: Pt accompanied by granddaughter who interpreted visit. Pt declined band bias machine operator. No adverse reactions reported from previous injection. Pt tolerated injection well. Pt scheduled in 4 weeks for next appt. No further questions at this time. Assessment & Plan Assessment & Plan Orders: Orders AMB Romosozumab Injection Patient Supplied Today M81.0 - Age-related osteoporosis without current pathological fracture Coding
--- OUTSIDE RECORDS SUMMARY | 2025-04-30 12:50 | XMS_ITS | Clinical Summary ---
Author Organization [facility] Address [address] [place] [address] Care Team Providers Care Voucher Examiner Name Role Phone Unavailable Primary Care Provider [...] 2006 Zoster Vaccines (1 of 2) 2006 Depression Screening 06/12/2024 COVID-19 Vaccine (1 - 2024-2 6 season) 2025 Influenza Vaccine (#1) 2025 RSV Immunization Adult [...]
--- OUTSIDE RECORDS SUMMARY | 2025-04-30 12:50 | XMS_ITS | Clinical Summary ---
Author Organization [facility] Address [address] [place] [address] Care Team Providers Care Taxi Driver Supervisor Name Role Phone Jermaineaurelianoivanna Aurelia Bell Primary Care Provider Allergies No known active allergies Medications amLODIPine (NORVASC) 10 mg tablet SMARTSI Tablet(s) By Mouth Daily Active halobetasol (ULTRAVATE) 0.05 % ointment SMARTSIG:Topi landon Twice Daily 12/09/19 23 Active hydrOXYzine (VISTARIL) [...] By Mouth Twice Daily 01/05/20 23 Active valACYclovir (VALTREX) 1 gram tablet 08/09/19 24 Active predniSONE (DELTASONE) 10 mg tablet Take 2 pills po QAM as directed 60 tablet 1 10/31/19 24 Active sulfamethoxazole -trimethoprim (BACTRIM DS) 800-160 mg tablet 1 PO 3 x/week (Mondays, Wednesdays, Fridays) 15 tablet 3 10/31/19 24 Active calcium carbonate-vitami n D3 600 mg-20 mcg (800 unit) tablet 1 po bid as instructed 60 tablet 3 10/31/19 24 Active naproxen 500 mg tablet Take [...] By Mouth Every Morning 10/31/19 25 Active betamethasone, augmented, (DIPROLENE) 0.05 % gelIndications:P emphigus vulgaris Please apply to the affected areas of the mouth once a day as needed 50 g 3 04/25/20 25 Active miracle mouthwash (maalox-lidocain p-viepeqvm-kflyc nhydrAMINE) 1:1:1:1Indicatio ns:Pemphigus vulgaris Swish and spit 4 mL up to 4 times daily as needed for sores in mouth. Do not swallow medication. 100 mL 1 04/25/20 25 Active triamcinolone acetonide (KENALOG) 0.1% creamIndications :Pemphigus vulgaris Apply to affected area on skin twice daily as needed 454 g 1 04/25/20 25 Active magic mouthwash (lidocaine-maalo x-diphenhydrAMIN E) 1:1:1 10/05/19 24 025 Discontinued triamcinolone acetonide (KENALOG) 0.1% cream SMARTSIG:Topi landon Morning-Night PRN 025 Discontinued magic mouthwash (lidocaine-maalo x-diphenhydrAMIN E) 1:1:1 11/17/19 24 025 Discontinued Active Problems Problem Noted Date Diagnosed Date Pemphigus vulgaris 10/31/2023 Overview (10/31/2023): Pemphigus, failed prednisone and cellcept, refractory oral lesions Encounters Date Type Department Care Team Description 04/25/2025 11:00 AM EST Office Visit [facility] [address]th [address] [place] [address], [place] [address] Carpenter Labor Supervisor: Meredith Gonzalez MD Pemphigus vulgaris (Primary Dx); High risk medication use; Capillaritis 02/19/2025 Telephone [facility] 2nd Floor [address] [place] [address], [place] [address] Carpenter Labor Supervisor: Meredith Gonzalez MD 02/18/2025 myChart Message [facility] [address]th [address] [place] [address], [place] [address] Carpenter Labor Supervisor: Meredith Gonzalez MD Celeste de B ez 02/13/2025 9:45 AM EDT Infusion [facility] [address] [place] [address] Lubna Naik RN Hackett, Maiya, RN Pemphigus vulgaris (Primary Dx) 02/07/2025 Orders Only [facility] 4th Floor [address] [facility], [place] [phone] Carpenter Labor Supervisor: Meredith Gonzalez MD 02/04/2025 Telephone [facility] 4th Floor [address] [facility], [place] [address] Carpenter Labor Supervisor: Makenzie Hess MD PAC Clinical Questions 02/02/2025 myChart Message [facility] 4th Floor [address] [facility], [place] [phone] Carpenter Labor Supervisor: Anabel Vazquez MD Need infusi n from Last 3 Months Social History Tobacco [...] Description 07/09/2025 11:00 AM EST Office Visit [facility] [address] [place] [phone] Carpenter Labor Supervisor: Meredith Gonzalez MD [address] [place] [address] 08/15/2025 8:45 AM EST Infusion [facility] [address] [place] [address] 08/27/2025 11:15 AM EDT Office Visit [facility] [address]th [address] [place] [phone] Carpenter Labor Supervisor: Meredith Gonzalez MD [address] [place] [address] Health Maintenance Due Date Last Done Comments Cologuard 1955 Colon Cancer Screening 1955 Colonoscopy 1955 FOBT / Fit Test 1956 Sigmoidoscopy 1955 Medicare AWV 1957 Zoster Vaccines (1 of 2) 08/24/1975 RSV Vaccine (60+ years old a nd patients) (1 - Risk 50-74 years 1-dose series) 2006 COVID-19 Vaccine (3 - Modern a risk series) 12/07/2020 11/09/2020, 10/12/2020 Mammogram 12/16/2023 12/15/2021 Alcohol/Substance Use Screening 06/12/2024 Depression Screening and Follow-Up 06/12/2024 Health Care Proxy Review 06/12/2024 Social Drivers of Health Annual Screening 06/12/2024 Influenza Vaccine (#1) 2025 12/01/202 3, 03/29/2017 Fall Risk Screening 04/25/2026 04/25/2025 DTaP,Tdap,and Td Vaccines (2 - Td or Tdap) 02/11/2031 02/11/2021 Pneumococcal Vaccine: 50+ Years Completed 11/10/2022 Hepatitis C Screening Completed 10/25/2023 Osteoporosis Screening Completed 12/19/2023 Hepatitis B Vaccines Aged Out No long er eligible based on patient's age to complete this topic Procedures * Due to [place] [employer] law, this organization might not be sharing negative HIV tests. Procedure Name Priority Date/Time Associated Diagnosis Comments HEPATITIS C ANTIBODY W/REFLEX TO HCV RNA, QUANTITATIVE PCR Routine 10/25/2023 3:57 PM EDT Pemphigus vulgaris High risk medication use from Last 3 Months or Most Recently Relevant to Health Maintenance Results * Due to [place] [employer] law, this organization might not be sharing negative HIV tests. * Hepatitis C Antibody w/Reflex to HCV RNA, Quantitative PCR (10/25/2023 3:57 PM EDT) Hepatitis C Antibody NON-REACT WILFREDO NON-REACT WILFREDO 10/26/2023 2:19 AM EDT [employer] Comment: HCV antibody was non-reactive. There is no laboratory evidence of HCV infection. In most cases, no further action is required. However, if recent HCV exposure is suspected, a test for HCV RNA (test code 31526) is suggested. For additional information please refer to http://education.[employer]/faq/LHR73o3 (This link is being provided for informational/ educational purposes only.) Blood Structure of peripheral vein / Unknown 10/25/2023 3:57 PM EDT 10/25/2023 10:40 PM EDT Narrative [facility] - 10/28/2023 1:56 PM EDT FASTING:NO us Meredith Samayoa MD LAB BLOOD ORDERABLES Final Result [facility] [address] [facility] 3rd Floor, [place] [address], [place] [phone] [place] [facility] [address] [phone] from Last 3 Months or Most Recently Relevant to Health Maintenance Insurance [facility] MEDICARE Care Teams Taxi Driver Supervisor Relationship Specialty Start Date End Date Aurelia Blackmon [address] [place] [address] PCP - General Internal Medicine 10/16/23
--- OUTSIDE RECORDS SUMMARY | 2025-04-30 12:50 | XMS_ITS | Encounter Summary ---
Author Organization [facility] Address [address] [place] [address] Care Team Providers Care Regrinder Name Role Phone Mark Blackmonaldair Ray Primary Care Provider Encounter Details Date Type Department Care Team (Late st Contact Info) Description 10/16/2023 Transcribe Orders [facility] [address] [place] [address] Aurelia Blackmon [address] [place] [address] Pemphigus vulgaris (Primary Dx) Social History Tobacco [...] Description 07/09/2025 11:00 AM EST Office Visit [facility] [address]th [address] [place] [address], [place] [address] Avionics Systems Repairer: Meredith Gonzalez MD [address] [place] [address] 08/15/2025 8:45 AM EST Infusion [facility] [address] [place] [address] 08/27/2025 11:15 AM EDT Office Visit [facility] 4th Floor [address] [facility], [place] [address] Avionics Systems Repairer: Meredith Gonzalez MD [address] [place] [address] documented as of this encounter Visit Diagnoses Diagnosis Pemphigus vulgaris- Primary Pemphigus documented in this encounter Care Teams Regrinder Relationship Specialty Start Date End Date Aurelia Blackmon [address] [place] [address] PCP - General Internal Medicine 10/16/23 documented as of this encounter
== END 2025-04-29 15:18 | disposition home or self-care (01) ==
LOC: HO.ENCR 14:52
PROVIDERS: PCP Internal Medicine; Visit Provider Internal Medicine Endocrinology, Diabetes & Metabolism
DX: M81.0 Age-related osteoporosis without current pathological fracture (principal)

== ENCOUNTER → 2025-04-29 14:52 | Outpatient (BNVA) | payer MEDICARE, MEDICAID, SELFPAY | PROVIDERS: PCP Internal Medicine; Visit Provider Internal Medicine Endocrinology, Diabetes & Metabolism | DX: M81.0 Age-related osteoporosis without current pathological fracture (principal); Z79.620 Long term (current) use of immunosuppressive biologic | CPT/HCPCS: 96372; J3111 ==

== ENCOUNTER 2025-05-16 10:20 | Outpatient (REF) | payer MEDICARE, MEDICAID, SELFPAY ==
[2025-05-16 14:18] LABS: Cholesterol 193 mg/dL (<200); HDL Cholesterol 57 mg/dL (>40); Iron 79 mcg/dL (30-160); Percent Iron Saturation 28 % (15-50); Total Iron Binding Capacity 284 mcg/dL (228-428); Triglycerides 124 mg/dL (<150); Unsaturated Iron Binding 205 ug/dL
[2025-05-16 14:29] LABS: Ferritin 69 ng/mL (10-250); Thyroid Stimulating Hormone 0.61 uIU/mL (0.32-4.0)
[2025-05-16 14:44] LABS: Folate 11.6 ng/mL (> or = 4.0); Vitamin B12 422 pg/mL (200-900)
[2025-05-17 08:43] LABS: HBS Num1 129.99 mIU/mL (0-7.99); ~HepC Num1 0.14 S/CO (0.00-0.79); ~Hepatitis B Surface Antibody REACTIVE (Nonreactive); ~Hepatitis C Antibody Nonreactive (Nonreactive)
== END 2025-05-16 10:21 | disposition home or self-care (01) ==
LOC: HO.HHCL 10:20
PROVIDERS: PCP Internal Medicine; Visit Provider Registered Nurse
DX: Z11.59 Encounter for screening for other viral diseases (principal); I10 Essential (primary) hypertension; K12.30 Oral mucositis (ulcerative), unspecified; L29.9 Pruritus, unspecified; D84.9 Immunodeficiency, unspecified; E03.9 Hypothyroidism, unspecified; R79.89 Other specified abnormal findings of blood chemistry; Z72.89 Other problems related to lifestyle
CPT/HCPCS: 36415; 80061; 82607; 82728; 82746; 83540; 84443; 86706; 86803; 87255

== ENCOUNTER 2025-05-29 09:54 | Outpatient (AMB) | payer MEDICARE, MEDICAID, SELFPAY ==
--- NOTE | 2025-05-29 10:22 | AM.OFFVISNUR ---
Intake Visit Reasons: Evenity #9 Allergies No Known Allergies (No Known Allergies*) Allergy (Verified 02/26/25 15:19) Office Meds romosozumab-aqqg 210 mg/2.34 mL(105 mg/1.17 mL x2)subcutaneous syringe Performing Provider: Tonny Weber MD Performing Location: [facility] Endocrinology Administered by: Soledad Lao RN on 05/29/25 10:15 Dose Route Admin Location Dispensed Lot Number Expiration Date [facility] Electronic Warfare Officer 210 mg subcut bilateral upper arms 2.34 mL [id number] 10/10/27 76189-085-43 [employer] Total Dispensed Waste 2.34 mL 0 % Comments: No adverse reactions reported from previous injection. Pt tolerated injection well. Pt scheduled in 4 weeks for next appt. No further questions at this time Assessment & Plan Assessment & Plan Orders: Orders AMB Romosozumab Injection Patient Supplied Today M81.0 - Age-related osteoporosis without current pathological fracture Coding
--- OUTSIDE RECORDS SUMMARY | 2025-05-29 12:09 | XMS_ITS | Encounter Summary ---
Author Organization [employer] [facility] Address [address] [facility] 7t [place] [address] Care Team Providers Care Public Works Inspector Name Role Phone Stephon [facility] Primary Care Provider [phone] Encounter Details Date Type Department Care Team ([facility] Contact Info) Description 07/26/2023 Orders Only [facility] [address] [place] [address] Aurelia Blackmon MD [address] [place] [address] Pemphigus vulgaris (Primary Dx) Social History Tobacco [...] documented as of this encounter Care Teams Public Works Inspector Relationship Specialty Start Date End Date Carlotta Szymanski FNP [address] [place] [address] PCP - General Family Medicine 02/08/22 documented as of this encounter
--- OUTSIDE RECORDS SUMMARY | 2025-05-29 12:09 | XMS_ITS | Encounter Summary ---
Author Organization [employer] Address [address] [facility] 7 [place] [address] Care Team Providers Care Senior Reliability Engineer Name Role Phone [facility] Primary Care Provider [phone] Encounter Details Date Type Department Care Team ([facility] st Contact Info) Description 03/08/2023 Orders Only [facility] MED & PEDS [address] [place] [address] Aurelia Blackmon MD [address] [place] [address] Pemphigus vulgaris (Primary Dx) Social History Tobacco [...] as of this encounter Care Teams Senior Reliability Engineer Relationship Specialty Start Date End Date Stephon LEATHA Laguerre [address] [place] [address] PCP - General Family Medicine 02/08/22 documented as of this encounter
--- OUTSIDE RECORDS SUMMARY | 2025-05-29 12:09 | XMS_ITS | Encounter Summary ---
Author Organization [employer] Address [address] [facility] 7t [place] [address] Care Team Providers Care Public Relations Associate Name Role Phone Stephon [facility] Primary Care Provider [phone] Encounter Details Date Type Department Care Team ([facility] Contact Info) Description 01/22/2024 Orders Only [facility] PEDS [address] [place] [address] Aurelia Blackmon MD [address] [place] [address] Other osteoporosis without current pathological fracture (Primary [...] as of this encounter Care Teams Public Relations Associate Relationship Specialty Start Date End Date Carlotta Szymanski FNP [address] [place] [address] PCP - General Family Medicine 02/08/22 documented as of this encounter
--- OUTSIDE RECORDS SUMMARY | 2025-05-29 12:09 | XMS_ITS | Encounter Summary ---
Author Organization [employer] Address [address] [facility] 7 [place] [address] Care Team Providers Care Tafe Teacher Name Role Phone Carlotta Szymanski FINANCIAL SERVICES INTERN Primary Care Provider [phone] Reason for Visit * Reason Comments Med Refill Encounter Details Date Type Department Care Team ([facility] Contact Info) Description 04/03/2023 Refill [facility] PEDS [address] [place] [address] Aurelia Blackmon MD [address] [place] [address] Social History Tobacco Use Types Packs/Day Years [...] with others, in a hotel, in a alf, living outside on the street, on a [...] documented as of this encounter Care Teams Tafe Teacher Relationship Specialty Start Date End Date Carlotta Szymanski FNP [address] [place] [address] PCP - General Family Medicine 02/08/22 documented as of this encounter
--- OUTSIDE RECORDS SUMMARY | 2025-05-29 12:09 | XMS_ITS | Encounter Summary ---
Author Organization [employer] Address [address] [facility] 7 [place] [address] Care Team Providers Care Livestock Nutrition Territory Manager Name Role Phone Carlotta Szymanski FINANCIAL COUNSELOR Primary Care Provider [phone] Reason for Visit * Reason Onset Date Comments Med Refill 05/07/2024 Encounter Details Date Type Department Care Team ([facility] st Contact Info) Description 05/07/2024 Refill [facility] PEDS [address] [place] [address] Aurelia Blackmon MD [address] [place] [address] Pemphigus vulgaris; Dry skin Social History Tobacco [...] documented as of this encounter Care Teams Livestock Nutrition Territory Manager Relationship Specialty Start Date End Date Carlotta Szymanski FNP [address] [place] [address] PCP - General Family Medicine 02/08/22 documented as of this encounter
--- OUTSIDE RECORDS SUMMARY | 2025-05-29 12:09 | XMS_ITS | Encounter Summary ---
Author Organization [employer] Address [address] [facility] [address] 7t [place] [address] Care Team Providers Care Metallurgical Engineering Technician Name Role Phone [place] [facility] Primary Care Provider [phone] Reason for Visit * Reason Comments Med Refill Encounter Details Date Type Department Care Team ([facility] st Contact Info) Description 12/02/2023 Refill [facility] MEDICINE [address] [place], [place] [phone] [facility] [address] [place] [address] Social History Tobacco Use Types Packs/Day Years [...] documented as of this encounter Care Teams Metallurgical Engineering Technician Relationship Specialty Start Date End Date Carlotta Szymanski FNP [address] [place] [address] PCP - General Family Medicine 02/08/22 documented as of this encounter
--- OUTSIDE RECORDS SUMMARY | 2025-05-29 12:09 | XMS_ITS | Clinical Summary ---
Author Organization [employer] Address [address] [facility] 7t [place] [address] Care Team Providers Care Laboratory Analyst Name Role Phone Carlotta Szymanski [facility] Primary Care Provider [phone] Allergies No known active allergies Medications cetirizine [...] halobetasol (UltraVATE) 0.05 % ointmentIndicati ons:Pemphigus vulgaris (HCC) Apply topically 2 times daily. 50 g 2 023 Active triamcinolone (Kenalog) 0.1 % creamIndications :Pemphigus vulgaris (HCC) Apply topically if needed in the morning and at bedtime (pain and swelling). 453 g 1 023 Active lidocaine (Xylocaine) 2 % solutionIndicati ons:Pemphigus vulgaris (HCC) Take 15 mL by mouth every 3 (three) hours. 100 mL 2 023 Active omeprazole (PriLOSEC) [address] capsuleIndicatio ns:Gastroesophag eal reflux disease without esophagitis Take 1 capsule (40 mg) by mouth before breakfast. Do not crush or chew. 30 capsule Active CIV-Gjda-KyFaoa- MgHydr-Simeth (First-Mouthwash BLM) suspensionIndica tions:Pemphigus vulgaris (HCC) USE 10 ML IN THE [...] Hydrox-Lidocaine viscous (MAGIC MouthWASH) suspensionIndica tions:Pemphigus vulgaris (HCC) Use 15 mL in the [...] by mouth Once per day. 90 capsule 2025 Active calcium carbonate (Calcium 600) 600 MG tabletIndication s:Other osteoporosis without current pathological fracture Take 1 tablet (600 mg) by mouth with breakfast and with evening meal. 60 tablet 025 2025 Active betamethasone, augmented, (Diprolene) 0.05 % gelIndications:P emphigus vulgaris (HCC) APPLY TOPICALLY TO ULCER OF THE LEFT CHEEK TWICE DAILY 15 g 025 Active levothyroxine (Synthroid, Levoxyl) 25 MCG tabletIndication s:Primary hypothyroidism Take 1 tablet (25 mcg) by mouth before breakfast. 30 tablet 11 025 Active benzocaine (Hurricaine) 20 % gelIndications:M ucositis Use 1 Application. in the mouth or throat if needed in the morning, at noon, in the evening, and at bedtime for mucositis. 30 g 1 025 Active levothyroxine (Synthroid, Levoxyl) 25 MCG tabletIndication s:Primary hypothyroidism TAKE 1 TABLET(25 MCG) BY MOUTH BEFORE BREAKFAST 30 tablet 11 025 2024 Discontinued( Reorder (will not trigger notification to Pharmacy)) Active Problems Problem Noted Date Diagnosed Date Immunocompromised patient 06/19/2024 Other osteoporosis without current pathological fracture 01/22/2024 Healthcare maintenance 02/22/2023 Overview (02/22/2023): Mammo: December 2021 Pap: December 2021 at [facility] [place] C-scope: Colonoscopy and endoscopy at [facility] [place] 2022 BMD: 2021, need records Mixed hyperlipidemia [...] high in fiber. Review available resources on https://www.heart.org/en/health-topics/cholesterol/yblzigvsgmn-cfnib-zwy-resourc es to learn more about lifestyle management. [...] Encounters Date Type Department Care Team Description 05/16/2025 9:30 AM EST Office Visit [address] [address] Carlotta Szymanski FNP Primary hypertension (Primary Dx); Mucositis; Primary hypothyroidism; Immunocompromised patient (CMS/HCC); Encounter for screening for other viral diseases; Pruritus, unspecified; Other specified abnormal findings of blood chemistry; Encounter for immunization; Encounter for screening mammogram for breast cancer; Dietary counseling; Exercise counseling 05/16/2025 Results Follow-Up [facility] [address] [place] [address] Aurelia Blackmon MD TSH 05/16/2025 Results Follow-Up [facility] [address] [place] [address] Aurelia Blackmon MD TSH W/Reflex to FT4, Lipid Panel, Standard, Vitamin B12/Folate, Serum Panel, Additional followed-up results: 5 05/16/2025 Travel 05/15/[address] [address] Carlotta Szymanski FNP chart prep 05/01/2025 Patient Outreach [address] [address] Carlotta Szymanski FNP Pre-visit Planning ((Unable to reach for PVP screening, LVM) to be completed in office ) 03/21/[address] [address] Carlotta Szymanski FNP Nurse Triage from Last 3 Months Immunizations Immunization Administration Dates Next Due Influenza High-dose Quadrivalent Preservative Fr ee 05/12/2023 Influenza injectable quadriv alent IIV4 with preservative 03/29/2017 Influenza, High Dose Seasonal, Preservative Free 05/16/2025 Moderna Covid-19 Vaccine 12+ 11/09/2020,10/13/19 21 Pfizer Covid-19 Vaccine + 05/16/2025 Pneumococcal Conjugate PCV 20 11/10/2022 Tdap 02/11/2021 [...] Date Recorded Patient Health Questionnaire-9 Score 0 05/16/2025 Patient Health Questionnaire-9 Score 0 05/16/2025 Last PHQ-9: Questionnaire Data Not on file 1 07/17/2024 Housing Stability Answer Date Recorded What is [...] Date Recorded Patient Health Questionnaire-2 Score 0 05/16/2025 Internet Access Answer Date Recorded Internet Access [...] Sign Reading Time Taken Comments Blood Pressure 130/82 05/16/2025 9:24 AM EST Pulse 88 05/16/2025 9:24 AM EST Temperature 36.8 C (98.2 F) 05/16/2025 9:24 AM EST Respiratory Rate 20 05/16/2025 9:24 AM EST Oxygen Saturation 100% 05/07/2024 11:34 AM EST Inhaled Oxygen Concentration - - Weight 68.1 kg (150 lb 3.2 oz) 05/16/2025 9:24 A M EST Height 154.9 cm (5' 1 ) 05/16/2025 9:24 AM EST Body Mass Index 28.38 05/16/2025 9:24 AM EST Plan of Treatment Health Maintenance Due Date Last Done Comments CT Colonography 1956 FIT DNA/Cologuard 1956 FIT 1956 FOBT 1955 Sigmoidoscopy 1955 Zoster Vaccines (1 of 2) 08/24/1975 RSV Patients and Patients Aged 60 years or older (1 - Risk 50-74 years 1-dose series) 2006 Mammogram 12/15/2022 12/15/2021, 03/31/2021 Alcohol/Substance Use Screening 06/19/2025 06/19/2024 COVID-19 Vaccine (4 - Mixed Product risk season) 2025 05/16/2025, 11/09/2020, 10/12/2020 Depression Screening 05/16/2026 05/16/2025, 05/16/20 25 SDOH Screening 05/16/2026 05/16/2025 Tobacco Screening 05/18/2026 05/18/2025 Lipid Panel 05/16/2030 05/16/2025, 06/13, 11/10/2022, Additional history exists DTaP/Tdap/Td Vaccines (2 - Td or Tdap) 02/11/2031 02/11/2021 Colonoscopy 10/05/2032 10/05/2022 Colorectal Cancer Screening 10/05/2032 Cervical Cancer Screening Discontinued HPV/Cotest Discontinued 03/29/2017 Pneumococcal Vaccine: 50+ Years Completed 11/10/2022 Hepatitis C Screening Completed 05/16/2025 Influenza Vaccine Completed 05/16/2025, , 03/29/2017 HIB Vaccines Aged Out No longer eligi [...] Procedure Name Priority Date/Time Associated Diagnosis Comments HERPES CULTURE WITH REFLEX TYPING Routine 05/16/2025 11:20 AM EST Mucositis IRON AND TOTAL IRON BINDING CAPACITY Routine 05/16/2025 10:26 AM EST Mucositis Other specified abnormal findings of blood chemistry FERRITIN Routine 05/16/2025 10:26 AM EST Mucositis Pruritus, unspecified HEPATITIS C AB W/REFL TO HCV RNA, QN, PCR Routine 05/16/2025 10:26 AM EST Immunocompromised patient (CMS/HCC) HEPATITIS B SURFACE ANTIBODY, QUALITATIVE Routine 05/16/2025 10:26 AM EST Immunocompromised patient (CMS/HCC) Encounter for screening for other viral diseases LIPID PANEL, STANDARD Routine 05/16/2025 10:26 AM EST Primary hypertension TSH W/REFLEX TO FT4 Routine 05/16/2025 1 0:26 AM EST Primary hypothyroidism TSH Routine 05/16/2025 10:26 AM EST Hypothyroidism due to Ant thyroiditis VITAMIN B12/FOLATE, SERUM PANEL Routine 05/16/2025 10:24 AM EST Immunocompromised patient (CMS/HCC) HM COLONOSCOPY Routine 10/05/2022 MAMMOGRAM GENERIC Routine 12/15/2021 2:4 0 PM EDT ZZZ HISTORICAL HPV MRNA E6/E7 Routine 03/29/2017 3:50 PM EDT from Last 3 Months or Most Recently Relevant to Health Maintenance Results * Herpes Simplex Virus Culture with Reflex Typing (05/16/2025 11:20 AM EST) HSV Culture/Type SEE NOTE [facility] Comment:HERPES SIMPLEX VIRUS CULTURE W/RFL TO TYPING Micro Number: [id number] Test Status: Final Specimen Source: Mouth Specimen Quality: Adequate HSV Culture: Not IsolatedTHIS TEST WAS PERFORMED AT:[id number] [id number] MERATI,MD Swab Topography unknown / Unknown 05/16/2025 11:20 AM EST 05/16/2025 5:40 PM EST [facility] MICROBIOLOGY - GENERAL OR DERABLES Final Result Performing Organization Address City/[facility]/ZIP Co de Phone Number [facility] [address] [place] [phone] * TSH W/Reflex to FT4 (05/16/2025 10:26 AM EST) Pathologist [facility] TSH reflex Free T4 0.61 0.32 - 4.0 uIU/mL [facility] Blood Venous blood specimen / Unknown 05/16/2025 10:26 AM EST 05/16/2025 12:53 PM EST [facility] BLOOD ORDERABLES Final Re sult Performing Organization Address [facility]/ZIP Co de Phone Number [facility] [address] [place] [phone] * Hepatitis C Antibody with Reflex to HCV, RNA, Quantitative, Real-Time PCR (05/16/2025 10:26 AM EST) Hepatitis C Antibody Nonreactive Nonreactive [facility] Comment:Antibodies to HCV no t detected; does not exclude early acuteHCV infection. Blood Venous blood specimen / Unknown 05/16/2025 10:26 AM EST 05/16/2025 12:53 PM EST [facility] BLOOD ORDERABLES Final Re sult Performing Organization Address [facility] Co de Phone Number [facility] [address] [place] [phone] * Iron And Total Iron Binding Capacity (05/16/2025 10:26 AM EST) Iron 79 30 - 160 mcg/dL [facility] Total Iron Binding Capacity 284 228 - 428 mcg/dL [facility] Percent Iron Saturation 28 15 - 50 % [facility] Unsaturated Iron Binding 205 ug/dL [facility] Blood Venous blood specimen / Unknown 05/16/2025 10:26 AM EST 05/16/2025 12:53 PM EST [facility] BLOOD ORDERABLES Final Re sult Performing Organization Address [facility] de Phone Number [facility] [address] [place] [phone] * Hepatitis B Surface Antibody, Qualitative (05/16/2025 10:26 AM EST) ~Hepatitis B Surface Antibody REACTIVE Nonreactive [facility] Comment:REACTIVE: > 11.99 mI U/mL Blood Venous blood specimen / Unknown 05/16/2025 10:26 AM EST 05/16/2025 12:53 PM EST [facility] BLOOD ORDERABLES Final Re sult Performing Organization Address [facility] Co de Phone Number [facility] [address] [place] [phone] * TSH (05/16/2025 10:26 AM EST) Thyroid Stimulating Hormone 0.61 0.32 - 4.0 uIU/mL [facility] Comment:TSH 3rd Generation ( [facility]) Blood Venous blood specimen / Unknown 05/16/2025 10:26 AM EST 05/16/2025 12:53 PM EST [facility] BLOOD ORDERABLES Final Re sult Performing Organization Address City/[facility]/ZIP Co de Phone Number [facility] [address] [place] [phone] * Ferritin (05/16/2025 10:26 AM EST) Ferritin 69 10 - 250 ng/mL [facility] Blood Venous blood specimen / Unknown 05/16/2025 10:26 AM EST 05/16/2025 12:53 PM EST [facility] BLOOD ORDERABLES Final Re sult Performing Organization Address [facility] Co de Phone Number [facility] [address] [place] [phone] * (ABNORMAL) Lipid Panel, Standard (05/16/2025 10:26 AM EST) Triglycerides 124 <150 mg/dL [facility] Comment:Desirable Triglyceri de: less than 150 mg/dLBorderline High Triglyceride 150-199 mg/dLHigh Triglyceride: 200-499 mg/dLVery High Triglyceride: greater than or equal to 5OO mg/dL Cholesterol 193 <200 mg/dL [facility] Comment:Desirable Cholestero l: less than 200 mg/dLBorderline High Cholesterol: 200-239 mg/dLHigh Cholesterol: greater than 239 mg/dL LDL Cholesterol Calculated 112(H) <100 mg/dL [facility] Comment:Desirable LDL: less than 100 mg/dLNear Optimal/Above Optimal LDL: 110- 129 mg/dLBorderline High LDL: 130-159 mg/dLHigh LDL: 160-189 mg/dLVery High LDL: greater than or equal to 190 mg/dL HDL Cholesterol 57 >40 mg/dL [facility] Comment:Desirable HDL: great er than 40 mg/dL Note: This HDL assay may give artificially low results in patients with liver disease. Blood Venous blood specimen / Unknown 05/16/2025 10:26 AM EST 05/16/2025 12:53 PM EST [facility] BLOOD ORDERABLES Final Re sult Performing Organization Address [facility] Co de Phone Number [facility] [address] [place] [phone] * Vitamin B12/Folate, Serum Panel (05/16/2025 10:24 AM EST) Vitamin B12 422 200 - 900 pg/mL [facility] Comment:NORMAL 200-900 PG/ML INDETERMINATE 160-199 PG/ML DEFICIENT < 160 PG/ML Folate 11.6 > or = 4.0 ng/mL [facility] Comment:Reference Values:> o r = 4.0 ng/mL< 4.0 ng/mL suggests folate deficiency Methotrexate, aminopterin and folinic acid(leucovorin) are chemotherapeutic agents whose molecularstructures are similar to folate; therefore, the Architectfolate assay cannot be used for patients using these drugs. Blood Venous blood specimen / Unknown 05/16/2025 10:24 AM EST 05/16/2025 12:50 PM EST [facility] BLOOD ORDERABLES Final Re sult Performing Organization Address [facility] Co de Phone Number [facility] [address] [place] [phone] * Hm Colonoscopy (10/05/2022) Colonoscopy Normal [...] Procedure: Mammography Report 1 us Lenora Fabian [employer]IATION TACTICAL READINESS OFFICER IMG BI PROCEDURES Final Result * HPV mRNA E6/E7 (03/29/2017 3:50 PM EDT) HPV mRNA E6/E7 Not Detected NOT DETECTED [facility] Comment: This test was performed using the APTIMA(R) HPV Assay ([employer] This assay detects E6/E7 viral messenger RNA (mRNA) from 14 high-risk HPV types (16,18,31,33,35,39,45,51, 52,56,58,59,66,68). For additional information please refer to: http://education.ABC Live/faq/VGW968q4 (This link is being provided for informational/ educational purposes only.) Test Performed by [facility], [facility], [address] [place] [address] Ronak Farah M.D., Ph.D., Director of Laboratories , [place] [id number] Please note: Effective 02/22/2016, HPV testing will be performed using [employer]'s APTIMA test which targets mRNA. Detecting mRNA instead of DNA, as in older methods, offers significant improvements in specificity. 03/29/2017 3:50 PM EDT us Shital Casas CNM HISTORICAL/NON ORDERABLE LABS Final Result [facility] [address] from Last 3 Months or Most Recently Relevant to Health Maintenance Insurance [facility] ST[facility] MEDICARE Care Teams Laboratory Analyst Relationship Specialty Start Date End Date Carlotta Szymanski FNP [address] [place] [phone] PCP - General Family Medicine 02/08/22
--- OUTSIDE RECORDS SUMMARY | 2025-05-29 12:09 | XMS_ITS | Encounter Summary ---
Author Organization [employer] Address [address] [facility] 7t [place] [address] Care Team Providers Care Communications Media Professor Name Role Phone Stephon [facility] Primary Care Provider [phone] Reason for Visit * Reason Comments Med Refill Encounter Details Date Type Department Care Team ([facility] Contact Info) Description 07/03/2023 Refill [facility] [address] [place] [address] Aurelia Blackmon MD [address] [place] [address] Pemphigus vulgaris Social History Tobacco Use Types [...] documented as of this encounter Care Teams Communications Media Professor Relationship Specialty Start Date End Date Carlotta Szymanski FNP [address] [place] [phone] PCP - General Family Medicine 02/08/22 documented as of this encounter
--- OUTSIDE RECORDS SUMMARY | 2025-05-29 12:09 | XMS_ITS | Encounter Summary ---
Author Organization [employer] Address [address] [facility] [address] [place] [address] Care Team Providers Care Damage Prevention Coordinator Name Role Phone Stephon Carlotta UNDERWRITING SERVICE REPRESENTATIVE Primary Care Provider [phone] Encounter Details Date Type Department Care Team ([facility] Contact Info) Description 06/08/2023 Orders Only [facility] [address] [place] [address] Aurelia Blackmon MD [address] [place] [address] Social History Tobacco Use Types Packs/Day Years [...] documented as of this encounter Care Teams Damage Prevention Coordinator Relationship Specialty Start Date End Date Carlotta Szymanski FNP [address] [place] [address] PCP - General Family Medicine 02/08/22 documented as of this encounter
--- OUTSIDE RECORDS SUMMARY | 2025-05-29 12:09 | XMS_ITS | Clinical Summary ---
Author Organization [facility] Address [address] [place] [address] Care Team Providers Care Bath Steward Name Role Phone Lorri Aurelia Bell Primary Care Provider Allergies No [...] Tablet(s) By Mouth Twice Daily 3 Active valACYclovir (VALTREX) 1 gram tablet 4 Active predniSONE (DELTASONE) 10 mg tablet Take 2 pills po QAM as directed 60 tablet 1 4 Active sulfamethoxazole- trimethoprim (BACTRIM DS) 800-160 mg tablet 1 PO 3 x/week (Mondays, Wednesdays, Fridays) 15 tablet 3 4 Active calcium carbonate-vitamin D3 600 mg-20 mcg (800 unit) tablet 1 po bid as instructed 60 tablet 3 4 Active naproxen 500 mg tablet Take 500 mg by mouth. 4 Active lidocaine w/ preservative (XYLOCAINE) 2% (20 mg/mL) injection Take 15 mL by mouth every 3 (three) hours. 3 Active alendronate (FOSAMAX) 70 mg tablet SMARTSI Tablet(s) By Mouth Once a Week Active mycophenolate (CELLCEPT) 500 mg tabletIndications :Pemphigus vulgaris Take 1 tablet (500 mg total) [...] Capsule(s) By Mouth Every Morning 5 Active betamethasone, augmented, (DIPROLENE) 0.05 % gelIndications:Pe mphigus vulgaris Please apply to the affected areas of the mouth once a day as needed 50 g 3 5 Active miracle mouthwash (maalox-lidocaine -nystatin-diphenh ydrAMINE) 1:1:1:1Indication s:Pemphigus vulgaris Swish and spit 4 mL up to 4 times daily as needed for sores in mouth. Do not swallow medication. 100 mL 1 5 Active triamcinolone acetonide (KENALOG) 0.1% creamIndications: Pemphigus vulgaris Apply to affected area on skin twice daily as needed 454 g 1 5 Active Active Problems Problem Noted Date Diagnosed Date Pemphigus vulgaris 10/31/2023 Overview (10/31/2023): Pemphigus, failed prednisone and cellcept, refractory oral lesions Encounters Date Type Department Care Team Description 04/25/2025 11:00 AM EST Office Visit [facility] 4th [address] [place] [address], [place] [phone] Body Bumper: Meredith Gonzalez MD Pemphigus vulgaris (Primary Dx); High risk medication use; Capillaritis from Last 3 Months Social History Tobacco [...] Description 07/09/2025 11:00 AM EST Office Visit [facility] 4th [address] [place] [phone] Body Bumper: Meredith Gonzalez MD [address] [place] [phone] 08/15/2025 8:45 AM EST Infusion [facility] [address] [place] [phone] 08/27/2025 11:15 AM EDT Office Visit [facility] 4th Floor [address] [place] [phone] Body Bumper: Meredith Gonzalez MD [address] [place] [phone] Health Maintenance Due Date Last Done Comments [...] 06/12/2024 Influenza Vaccine (#1) 2025 , 03/29/2017 Fall Risk Screening 04/25/2026 04/25/2025 DTaP,Tdap,and Td Vaccines (2 - Td or Tdap) 02/11/2031 02/11/2021 Pneumococcal Vaccine: 50+ Years Completed 11/10/2022 Hepatitis C Screening Completed 10/25/2023 Osteoporosis Screening Completed 12/19/2023 Hepatitis B Vaccines Aged Out No long er eligible based on patient's age to complete this topic Procedures * Due to [place] [employer] law, this organization might not be sharing negative HIV tests. Procedure Name Priority Date/Time Associated Diagnosis Comments HEPATITIS C ANTIBODY W/REFLEX TO HCV RNA, QUANTITATIVE PCR Routine 10/25/2023 3:57 PM EDT Pemphigus vulgaris High risk medication use from Last 3 Months or Most Recently Relevant to Health Maintenance Results * Due to [place] [employer] law, this organization might not be sharing negative HIV tests. * Hepatitis C Antibody w/Reflex to HCV RNA, Quantitative PCR (10/25/2023 3:57 PM EDT) Hepatitis C Antibody NON-REACT WILFREDO NON-REACT WILFREDO 10/26/2023 2:19 AM EDT [facility] Comment: HCV antibody was non-reactive. There is no laboratory evidence of HCV infection. In most cases, no further action is required. However, if recent HCV exposure is suspected, a test for HCV RNA (test code 28925) is suggested. For additional information please refer to http://education.M[employer]Me.[employer]/faq/PWR77s1 (This link is being provided for informational/ educational purposes only.) Blood Structure of peripheral vein / Unknown 10/25/2023 3:57 PM EDT 10/25/2023 10:40 PM EDT Narrative [facility] - 10/28/2023 1:56 PM EDT FASTING:NO Meredith Samayoa MD LAB BLOOD ORDERABLES Final Result [facility] [address] [facility] [address]rd [address], [place] [address], [employer] [facility] [address] [place] [phone] from Last 3 Months or Most Recently Relevant to Health Maintenance Insurance [facility] MEDICARE Care Teams Bath Steward Relationship Specialty Start Date End Date Aurelia Blackmon [address] [place] [phone] PCP - General Internal Medicine 10/16/23
--- OUTSIDE RECORDS SUMMARY | 2025-05-29 12:09 | XMS_ITS | Encounter Summary ---
Author Organization [employer] Address [address] [facility] 7t [place] [address] Care Team Providers Care Chairman Of The Board Name Role Phone Carlotta Szymanski [employer] Primary Care Provider [phone] Encounter Details Date Type Department Care Team ([facility] Contact Info) Description 05/16/2025 Results Follow-Up [facility] CHC MED & PEDS [address] [place] [address] Aurelia Blackmon MD [address] [place] [address] TSH Social History Tobacco Use Types Packs/Day Years [...] AM EDT documented as of this encounter Functional Status * Over the past 2 weeks, how often have you been bothered by any of the following problems? Question Answer Date of Assessment Author Patient Health Questionnaire-2 Score 0 05/16/2025 10:13 AM Melvi Lopez MA * Little interest or pleasure in doing things Answer Date of Assessment Author Not at all 05/16/2025 10:13 AM Melvi Orta MA * Feeling down, depressed, or hopeless Answer Date of Assessment Author Not at all 05/16/2025 10:13 AM Melvi Orta MA * Trouble falling or staying asleep, or sleeping too much Answer Date of Assessment Author Not at all 05/16/2025 10:13 AM Melvi Orta MA * Feeling tired or having little energy Answer Date of Assessment Author Not at all 05/16/2025 10:13 AM Melvi Orta MA * Poor appetite or overeating Answer Date of Assessment Author Not at all 05/16/2025 10:13 AM Melvi Orta MA * Feeling bad about yourself - or that you are a failure or have let yourself or your family down Answer Date of Assessment Author Not at all 05/16/2025 10:13 AM Melvi Orta MA * Trouble concentrating on things, such as reading the newspaper or watching television Answer Date of Assessment Author Not at all 05/16/2025 10:13 AM Melvi Orta MA * Moving or speaking so slowly that other people could have noticed? Or the opposite - being so fidgety or restless that you have been moving around a lot more than usual. Answer Date of Assessment Author Not at all 05/16/2025 10:13 AM Melvi Orta MA * Thoughts that you would be better off or hurting yourself in some way Answer Date of Assessment Author Not at all 05/16/2025 10:13 AM Melvi Orta MA * Patient Health Questionnaire-9 Score Answer Date of Assessment Author 0 05/16/2025 10:13 AM Melvi Orta MA * Over the last 2 weeks, how often have you been bothered by any of the following problems? Question Answer Date of Assessment Author Feeling nervous, anxious, or on edge 0 05/16/2025 10:13 AM Melvi Barrientos MA Not being able to stop or control worrying 0 05/16/2025 10:13 AM Melvi Barrientos MA Worrying too much about different things 0 05/16/2025 10:13 AM Melvi Barrientos MA Trouble relaxing 0 05/16/2025 10:13 AM Melvi Barrientos MA Being so restless that it is hard to sit still 0 05/16/2025 10:13 AM Melvi Barrientos MA Becoming easily annoyed or irritable 0 05/16/2025 10:13 AM Melvi Barrientos MA Feeling afraid as if something awful might happen 0 05/16/2025 10:13 AM Melvi Streeter MA MOE-7 Total Score 0 05/16/2025 10:13 AM EST Melvi Miller MA documented as of this encounter Miscellaneous Notes * Result Encounter Note - Aurelia Blackmon MD - 05/16/2025 2:45 PM EST FYI documented in this encounter Plan of Treatment Not on file documented as of this encounter Visit Diagnoses Not on filedocumented in this encounter Additional Health Concerns Assessment Noted Time PHQ-9 Depression Total Score: 0 05/16/20 25 10:13 AM EST documented as of this encounter Care Teams Chairman Of The Board Relationship Specialty Start Date End Date Carlotta Szymanski FNP [address] [place] [address] PCP - General Family Medicine 02/08/22 documented as of this encounter
--- OUTSIDE RECORDS SUMMARY | 2025-05-29 12:09 | XMS_ITS | Encounter Summary ---
Author Organization [employer] Address [address] [facility] 7t [place] [address] Care Team Providers Care Sign Writer Letterer Or Painter Name Role Phone [facility] Primary Care Provider [phone] Reason for Visit * Reason Onset Date Comments Appointment Request 02/06/2024 Encounter Details Date Type Department Care Team ([facility] st Contact Info) Description 02/06/2024 Telephone [facility] MEDICINE [address] [place] [address] [facility] [address] [place] [address] Appointment Request Social History Tobacco Use Types [...] call for appt. Please contact pt at [phone]. documented in this encounter Plan of Treatment Not on file documented as of this encounter Visit Diagnoses Not on filedocumented in this encounter Additional Health Concerns Assessment Noted Time PHQ-9 Depression Total Score: 0 05/12/20 23 1:22 PM EST documented as of this encounter Care Teams Sign Writer Letterer Or Painter Relationship Specialty Start Date End Date Carlotta Szymanski FNP [address] [place] [id number] PCP - General Family Medicine 02/08/22 documented as of this encounter
--- OUTSIDE RECORDS SUMMARY | 2025-05-29 12:09 | XMS_ITS | Encounter Summary ---
Author Organization [facility] Address [address] [place] [address] Care Team Providers Care Scalemaker Name Role Phone Aurelia Blackmon Primary Care Provider Encounter Details Date Type Department Care Team (Late st Contact Info) Description 10/16/2023 Transcribe Orders [facility] Physician Referral Services [address] [place] [address] Aurelia Blackmon [address] [place] [address] Pemphigus vulgaris (Primary Dx) Social History Tobacco [...] Description 07/09/2025 11:00 AM EST Office Visit [facility] [address]th [address] [place] [address], [place] [address] Floral Clerk: Meredith Gonzalez MD [address] [place] [address] 08/15/2025 8:45 AM EST Infusion [facility] [address] [place] [address] 08/27/2025 11:15 AM EDT Office Visit [facility] 4th Floor [address] [facility], [place] [address] Floral Clerk: Meredith Gonzalez MD [address] [place] [address] documented as of this encounter Visit Diagnoses Diagnosis Pemphigus vulgaris- Primary Pemphigus documented in this encounter Care Teams Scalemaker Relationship Specialty Start Date End Date Aurelia Blackmon [address] [place] [address] PCP - General Internal Medicine 10/16/23 documented as of this encounter
--- OUTSIDE RECORDS SUMMARY | 2025-05-29 12:09 | XMS_ITS | Encounter Summary ---
Author Organization [employer] Address [address] [facility] [address] 7t [place] [address] Care Team Providers Care Lockstitch Machine Operator Name Role Phone Stephon Carlotta SLITTING MACHINE FEEDER Primary Care Provider [phone] Reason for Visit * Reason Comments Med Refill Encounter Details Date Type Department Care Team ([facility] st Contact Info) Description 03/23/2024 Refill [facility] CHC MED & PEDS [address] [place] [address] Tata Bullard MD [address] [place] [address] Primary hypertension Social History Tobacco Use Types [...] Time PHQ-9 Depression Total Score: 0 05/12/20 1:22 PM EST documented as of this encounter Care Teams Lockstitch Machine Operator Relationship Specialty Start Date End Date Carlotta Szymanski FNP [address] [place] [address] PCP - General Family Medicine 02/08/22 documented as of this encounter
--- OUTSIDE RECORDS SUMMARY | 2025-05-29 12:09 | XMS_ITS | Encounter Summary ---
Author Organization [employer] Address [address] [facility] 7t [place] [address] Care Team Providers Care Head Chef Name Role Phone Carlotta Szymanski Primary Care Provider [phone] Encounter Details Date Type Department Care Team ([facility] st Contact Info) Description 07/29/2022 Telephone [facility] MEDICINE [address] [place] [address] Carlotta Szymanski FNP [address] [place] [address] Social History Tobacco Use Types Packs/Day Years [...] on filedocumented in this encounter Care Teams Head Chef Relationship Specialty Start Date End Date Carlotta Szymanski FNP [address] [place] [address] PCP - General Family Medicine 02/08/22 documented as of this encounter
--- OUTSIDE RECORDS SUMMARY | 2025-05-29 12:09 | XMS_ITS | Encounter Summary ---
Author Organization [employer] Address 75 [facility] 7t [place] [address] Care Team Providers Care Electric Frying Pan Repairer Name Role Phone Stephon [facility] Primary Care Provider [phone] Reason for Visit * Reason Comments Med Refill Encounter Details Date Type Department Care Team ([facility] Contact Info) Description 07/03/2023 Refill [facility] CHC MED & PEDS [address] [place] [address] Aurelia Blackmon MD [address] [place] [address] Pemphigus vulgaris Social History Tobacco Use Types [...] documented as of this encounter Care Teams Electric Frying Pan Repairer Relationship Specialty Start Date End Date Carlotta Szymanski FNP [address] [place] [address] PCP - General Family Medicine 02/08/22 documented as of this encounter
--- OUTSIDE RECORDS SUMMARY | 2025-05-29 12:09 | XMS_ITS | Encounter Summary ---
Author Organization [employer] Address [address] [facility] 7t [place] [address] Care Team Providers Care Statistical Machine Mechanic Name Role Phone [facility] Primary Care Provider [phone] Reason for Visit * Reason Onset Date Comments ER Follow-up 09/20/2022 Encounter Details Date Type Department Care Team (Late st Contact Info) Description 09/20/2022 Telephone [facility] MEDICINE [address] [place] [address] [facility] [address] [place] [address] ER Follow-up Social History Tobacco Use Types [...] to report ED visit on 09/20/22 at [facility]. Diagnosed with pain. Patient advised will forward to team nurse for follow up. documented in this encounter Plan of Treatment Not on file documented as of this encounter Visit Diagnoses Not on filedocumented in this encounter Care Teams Statistical Machine Mechanic Relationship Specialty Start Date End Date Carlotta Szymanski FNP [address] [place] [address] PCP - General Family Medicine 02/08/22 documented as of this encounter
--- OUTSIDE RECORDS SUMMARY | 2025-05-29 12:09 | XMS_ITS | Encounter Summary ---
Author Organization [employer] Address [address] [facility] 7 [place] [address] Care Team Providers Care Sexual Assault Response Coordinator Name Role Phone Carlotta Szymanski POTATO GRADER Primary Care Provider [phone] Reason for Visit * Reason Onset Date Comments Results 05/16/2025 Encounter Details Date Type Department Care Team ([facility] st Contact Info) Description 05/16/2025 Results Follow-Up [facility] CHC MED & PEDS [address] [place] [address] Aurelia Blackmon MD [address] [place] [address] TSH W/Reflex to FT4, Lipid Panel, Standard, Vitamin B12/Folate, Serum Panel, Additional followed-up results: 5 Social History Tobacco Use Types Packs/Day Years [...] awful might happen 0 05/16/2025 10:13 AM EST Melvi Mckeon MA MOE-7 Total Score 0 05/16/2025 10:13 AM EST Melvi Miller MA documented as of this encounter Miscellaneous Notes * Telephone Encounter - Ashleigh Townsend RN - 05/29/2025 11:30 AM EST TC placed to patient to [phone] in regards to below message. Patient did not answer, RN left requesting CB to red team nurses. TC placed to daughter [phone] in regards to below message. Daughter did not answer, RN left requesting CB to red team nurses. RN will re-attempt in PM. ----- Message from [facility] sent at 05/28/2025 5:25 PM EST ----- Please let patient know that cholesterol was slightly elevated. No medications changes at this time. Focus on lifestyle recs. Please also offer televisit to discuss treatment options for mouth sores-->I looked back throughher chart more and we may be able to trial an oral antiviral but I'd like to talk with her more about it first. OK to take a Monday jennifer spot if nothing available in the next couple of weeks. Thanks! ----- Message ----- From: Interface, Lab Results In Sent: 05/16/2025 2:19 PM EST To: [facility] * Result Encounter Note - Aurelia Blackmon MD - 05/20/2025 1:32 PM EST GISELLE * Result Encounter Note - Aurelia Blackmon MD - 05/16/2025 2:45 PM EST GISELLE. documented in this encounter Plan of Treatment Not on file documented as of this encounter Visit Diagnoses Not on filedocumented in this encounter Additional Health Concerns Assessment Noted Time PHQ-9 Depression Total Score: 0 05/16/20 25 10:13 AM EST documented as of this encounter Care Teams Sexual Assault Response Coordinator Relationship Specialty Start Date End Date Carlotta Szymanski FNP [address] [place] [address] PCP - General Family Medicine 02/08/22 documented as of this encounter
--- OUTSIDE RECORDS SUMMARY | 2025-05-29 12:09 | XMS_ITS | Encounter Summary ---
Author Organization [employer] Address 75 [facility] 7t [place] [address] Care Team Providers Care Engraved Roller Inspector Name Role Phone Stephon [facility] Primary Care Provider Reason for Visit * Reason Comments Med Refill Encounter Details Date Type Department Care Team ([facility] st Contact Info) Description 03/23/2024 Refill [facility] CHC MED & PEDS [address] [place] [address] Aurelia Blackmon MD [address] [place] [address] Gastroesophageal reflux disease without esophagitis Social History [...] documented as of this encounter Care Teams Engraved Roller Inspector Relationship Specialty Start Date End Date Carlotta Szymanski FNP [address] [place] [address] PCP - General Family Medicine 02/08/22 documented as of this encounter
--- OUTSIDE RECORDS SUMMARY | 2025-05-29 12:09 | XMS_ITS | Encounter Summary ---
Author Organization [employer] Address [address] [facility] [address] [place] [address] Care Team Providers Care Alliances Consultant Name Role Phone [facility] Primary Care Provider [phone] Reason for Visit * Reason Onset Date Comments Medication Question 05/16/2023 Encounter Details Date Type Department Care Team ([facility] st Contact Info) Description 05/16/2023 Telephone [facility] MEDICINE [address] [place], [place] [phone] [facility] [address] [place], [place] [phone] Medication Question Social History Tobacco Use Types [...] documented as of this encounter Care Teams Alliances Consultant Relationship Specialty Start Date End Date Stephon LEATHA Laguerre [address] [place] [address] PCP - General Family Medicine 02/08/22 documented as of this encounter
--- OUTSIDE RECORDS SUMMARY | 2025-05-29 12:09 | XMS_ITS | Encounter Summary ---
Author Organization [employer] Address [address] [facility] 7t [place] [address] Care Team Providers Care Event Producer Name Role Phone [place] [facility] Primary Care Provider [phone] Reason for Visit * Reason Onset Date Comments Reschedule 05/01/2023 Encounter Details Date Type Department Care Team ([facility] st Contact Info) Description 05/01/2023 Telephone [facility] MEDICINE [address] [place] [address] [facility] [address] [place] [address] Reschedule Social History Tobacco Use Types Packs/Day [...] with others, in a hotel, in a prison, living outside on the street, on a [...] 04/25 derm appointment. Please contact pt at [phone] (Vietnamese) documented in this encounter Plan of Treatment Not on file documented as of this encounter Visit Diagnoses Not on filedocumented in this encounter Additional Health Concerns Assessment Noted Time PHQ-9 Depression Total Score: 0 11/11/19 23 1:09 PM EDT documented as of this encounter Care Teams Event Producer Relationship Specialty Start Date End Date Carlotta Szymanski FNP [address] [place] [address] PCP - General Family Medicine 02/08/22 documented as of this encounter
--- OUTSIDE RECORDS SUMMARY | 2025-05-29 12:09 | XMS_ITS | Clinical Summary ---
Author Organization [facility] Address [address] [place] [address] Care Team Providers Care Color Straining Bag Washer Name Role Phone Unavailable Primary Care Provider [...]
== END 2025-05-29 10:21 | disposition home or self-care (01) ==
LOC: HO.ENCR 09:54
PROVIDERS: PCP Internal Medicine; Visit Provider Internal Medicine Endocrinology, Diabetes & Metabolism
DX: M81.0 Age-related osteoporosis without current pathological fracture (principal)

== ENCOUNTER → 2025-05-29 09:54 | Outpatient (BNVA) | payer MEDICARE, MEDICAID, SELFPAY | PROVIDERS: PCP Internal Medicine; Visit Provider Internal Medicine Endocrinology, Diabetes & Metabolism | DX: M81.0 Age-related osteoporosis without current pathological fracture (principal) | CPT/HCPCS: 96372; J3111 ==